=== PATIENT | male | born 1960 | race Caucasian/White ===

== ENCOUNTER 2022-05-24 06:55 | Outpatient (REF) | payer OTHER, SELFPAY ==
[2022-05-24 11:54] LABS: MANUAL DIFF FLAG NO
[2022-05-24 12:02] LABS: Basophils Absolute Auto 0.1 X10*3/uL (0.0-0.2); Basophils Percent Auto 0.8 % (0-2); Eosinophils Absolute Auto 0.4 X10*3/uL (0.0-0.4); Eosinophils Percent Auto 5.8 % (0-4); Hemoglobin 15.3 g/dl (14.0-18.0); Imm Gran Abs Auto 0.02 X10*3/uL (0.00-0.03); Imm Gran Pct Auto 0.3 % (0.0-0.4); Lymphocytes Absolute Auto 1.5 X10*3/uL (1.2-4.9); Lymphocytes Percent Auto 24.1 % (20-40); Mean Corpuscular HGB Conc 34.8 g/dl (31.0-36.0); Mean Corpuscular Hemoglobin 32.2 pg (27.0-33.0); Mean Corpuscular Volume 92.6 fL (80.0-98.0); Mean Platelet Volume 10.3 fL (9.4-12.4); Monocytes Absolute Auto 0.7 X10*3/uL (0.1-1.2); Monocytes Percent Auto 11.6 % (2-11); Neutrophils Absolute Auto 3.6 x10*3/uL (2.0-8.3); Neutrophils Percent Auto 57.4 % (45-73); Platelet Count 263 X10*3/uL (160-400); Red Blood Count 4.75 X10*6/uL (4.60-5.80); White Blood Count 6.2 X10*3/uL (4.8-10.8)
[2022-05-24 12:19] LABS: Alanine Aminotransferase 22 U/L (0-40); Albumin Level 4.1 g/dL (3.5-5.0); Alkaline Phosphatase 59 U/L (39-117); Anion Gap 13 (12-20); Aspartate Amino Transferase 16 U/L (5-37); Bilirubin Total 0.4 mg/dL (0.0-1.0); Blood Urea Nitrogen 21 mg/dL (9-16); Carbon Dioxide 23 mmol/L (22-29); Chloride 105 mmol/L (96-108); Cholesterol 203 mg/dL; Estimated Glomerular Filt Rate > 60; Glucose Fasting 106 mg/dL (60-99); HDL Cholesterol 51 mg/dL; LDL Cholesterol Calculated 141 mg/dl; Potassium 4.4 mmol/L (3.3-5.1); Sodium 137 mmol/L (135-145); Triglycerides 55 mg/dL
[2022-05-24 12:44] LABS: PSA,Total (Free>4and<10) 2.51 ng/mL (0.00-4.00); TSH reflex Free T4 1.93 uIU/mL (0.32-4.0)
== END 2022-05-24 06:56 | disposition home or self-care (01) ==
LOC: HO.HMGCLDS 06:55
PROVIDERS: Visit Provider Internal Medicine
DX: Z00.00 Encounter for general adult medical examination without abnormal findings (principal); Z13.220 Encounter for screening for lipoid disorders; Z13.29 Encounter for screening for other suspected endocrine disorder; Z12.5 Encounter for screening for malignant neoplasm of prostate
CPT/HCPCS: 36415; 80053; 80061; 84153; 84443; 85025

== ENCOUNTER → 2022-07-24 09:04 | Outpatient (BNVA) | payer OTHER, SELFPAY | PROVIDERS: PCP Internal Medicine; Referring Provider Internal Medicine; Visit Provider Surgery | DX: K64.8 Other hemorrhoids (principal) | CPT/HCPCS: 46600 ==

== ENCOUNTER 2022-08-15 07:25 | Day surgery (SDC) | payer OTHER, SELFPAY ==
[2022-08-08 19:51] VITALS: BMI 31.6
--- NOTE | 2022-08-14 10:32 | P.CONAN_ITS ---
Documented by User: Valeria Richey NP 08/14/22 10:33 HPI - Anesthesia Eval Consult details Narrative: 61yo M for Hernia Repair Umbilical Laparoscopic, possible open with mesh PMFSH Active Problems Active Problems: All Active Problems (Updated 07/24/22 @ 09:27 by Asael Claros MD) Hemorrhoids with complication (Acute) Change in bowel habit (Acute) Encounter for screening colonoscopy (Acute) Hemorrhoids (Acute) Morbid (severe) obesity due to excess calories (Acute) Overweight (Acute) Diastasis recti (Acute) Umbilical hernia (Acute) Hernia (Acute) Annual physical exam (Acute) Past Medical History Medical History Hemorrhoids with complication Family History Family History Father Substance use disorder Mother CAD (coronary artery disease), Onset Age: 60 Brother Hodgkin disease Surgical History Surgical History Hx of colonoscopy Hx of knee surgery Hx of wisdom tooth extraction Social History Social History 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:: , 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 Alcohol intake: current Alcohol intake frequency: a few times a month Patient Tobacco Use Status: Former Tobacco user Quit Date: 35 years ago Tobacco use type: Cigarette e-Cigarette/Vaping Use: Never Used Second Hand Smoke Exposure: No Use of substances other than those prescribed or required for medical reasons: No Advance Directives: No Advance Directives Information Provided: Yes Advance Directives on File: No Recently lost weight without trying: No Nutrition Risks: No Nutritional Risk service: Yes Current occupational status: employed Current occupation: [email or web address] Current occupational exposures/hazards: Yes Cognitive needs: No Hearing needs: No Vision needs: No Meds Allergies Allergy/AdvReac Type Severity Reaction Status Date / Time No Known Allergies Allergy Mild NOT Verified 08/15/22 07:35 APPLICABLE Home Medications Medication Instructions Recorded Confirmed Last Taken Type ascorbic acid (vitamin C) 100 mg 100 mg PO DAILY 08/08/22 08/08/22 Unknown History tablet (Vitamin C) calcium carbonate 500 mg-vitamin 1 tab PO DAILY 08/08/22 08/08/22 Unknown History D3 10 mcg (400 unit) tablet (Calcium 500 + D) cetirizine 5 mg tablet 5 mg PO DAILY 08/08/22 08/08/22 Unknown History cholecalciferol (vitamin D3) 125 125 mcg PO DAILY 08/08/22 08/08/22 Unknown History mcg (5,000 unit) tablet (Vitamin D3) multivitamin 1 tab PO DAILY 08/08/22 08/08/22 Unknown History Exam Exam Date and Time: August 14, 2022 1032 Height,Weight and Vital Signs: Height 5 ft 11 in Weight 102.965 kg Pertinent Lab Results Pertinent Lab Results: Laboratory Tests 05/24/22 05/24/22 07:05 07:05 WBC 6.2 Hgb 15.3 Hct 44.0 Plt Count 263 Sodium 137 Potassium 4.4 Chloride 105 Carbon Dioxide 23 BUN 21 H Creatinine 0.80 Documented by User: Odilon Plata MD 08/15/22 09:37 [facility] Past Medical History Medical History Hemorrhoids with complication Family History Family History Father Substance use disorder Mother CAD (coronary artery disease), Onset Age: 60 Brother Hodgkin disease Family history of problems with anesthesia: No Surgical History Surgical History Hx of colonoscopy Hx of knee surgery Hx of wisdom tooth extraction History of Problems with Anesthesia: No Social History Social History 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:: , 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 Alcohol intake: current Alcohol intake frequency: a few times a month Patient Tobacco Use Status: Former Tobacco user Quit Date: 35 years ago Tobacco use type: Cigarette e-Cigarette/Vaping Use: Never Used Second Hand Smoke Exposure: No Use of substances other than those prescribed or required for medical reasons: No Advance Directives: No Advance Directives Information Provided: Yes Advance Directives on File: No Recently lost weight without trying: No Nutrition Risks: No Nutritional Risk service: Yes Current occupational status: employed 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 [employer] Current occupational exposures/hazards: Yes Cognitive needs: No Hearing needs: No Vision needs: No Meds Allergies Allergy/AdvReac Type Severity Reaction Status Date / Time No Known Allergies Allergy Mild NOT Verified 08/15/22 07:35 APPLICABLE Home Medications Medication Instructions Recorded Confirmed Last Taken Type ascorbic acid (vitamin C) 100 mg 100 mg PO DAILY 08/08/22 08/08/22 Unknown Hi story tablet (Vitamin C) calcium carbonate 500 mg-vitamin 1 tab PO DAILY 08/08/22 08/08/22 Unknown History D3 10 mcg (400 unit) tablet (Calcium 500 + D) cetirizine 5 mg tablet 5 mg PO DAILY 08/08/22 08/08/22 Unknown History cholecalciferol (vitamin D3) 125 125 mcg PO DAILY 08/08/22 08/08/22 Unknown History mcg (5,000 unit) tablet (Vitamin D3) multivitamin 1 tab PO DAILY 08/08/22 08/08/22 Unknown History Exam Airway Mallampati Class: II TM Dist: >3cm Neck ROM: Full Loose/Missing/Broken Teeth: No Heart: rrr+[id number] Lungs: cta b/l Assessment and Plan Assessment Anesthesia Assessment: Anesthesia Plan Discussed and Chart Reviewed Final Anesthetic Review Family History of Problems with Anesthesia: No History of Problems with Anesthesia: No NPO: Yes ASA Class: III Final Preanesthetic Review: No Changes in Pt Med Stat, Meds/Allgs Chart Reviewed, Consent Obtained/Reviewed and Anes Risks/Benef Reviewed Patient Risk: Intermediate Procedure Risk: Intermediate Assessment/Block/Sedation in SS: Assess/Block/Sedation-SS Anesthetic Plan Anesthetic Plan: GA and Agree w/ Assess. and Plan Disposition: Standard PACU
[2022-08-15] VITALS (7 sets, daily range): BP systolic 120–144; BP diastolic 60–72; PULSE 56–61; RESP 15–16; TEMP 36.1–36.9; O2SAT 96–98
[2022-08-15] MEDS: Lactated Ringers 500 ML 50 ML IV (08:07)
--- NOTE | 2022-08-15 08:28 | MHC.SHP ---
Pre-Procedural Eval Section A Date of Service: 08/15/22 The patient is an INPATIENT: No The History & Physical has been completed within 30 days and I have reviewed it.: Yes Section B Chief Complaint: Umbilical hernia without obstruction or gangrene Allergies: Allergies Allergy/AdvReac Type Severity Reaction Status Date / Time No Known Allergies Allergy Mild NOT Verified 08/15/22 07:35 APPLICABLE Plan I have reviewed the history and physical and performed a pertinent physical examination on my patient. No changes have occurred unless specified.
--- NOTE | 2022-08-15 08:33 | W.PM.OPN ---
Operative Note Operative Note Date of Service: 08/15/22 Narrative: Preop diagnosis: [Umbilical hernia] Postop diagnosis: [Same] Procedure: [Laparoscopic repair with primary closure and IPOM 4x6 Echo mesh] Surgeon: Earl Marks MD Assist: [Gina Harris PA-C] Anesthesia: [GET; local Ropivicaine, 0.5% with epi] Estimated blood loss: [3cc] Specimen: [none] Intraoperative findings: [Viable properitoneal fat in a 2 cm umbilical hernia was noted and reduced] Indications: [The patient is a 61-year-old gentleman with a history of a symptomatic umbilical hernia with trophic skin changes. His weight is been stable. We discussed options including open repair, continued observation and laparoscopic repair with mesh. Following my recommendations, he wanted to proceed with a laparoscopic repair with mesh/IPOM. I reviewed the option of a 2nd opinion as well as the inherent risks of bleeding, infection, hernia recurrence, intra-abdominal organ injury, DVT/PE and other unexpected complications including urinary retention. Patient seemed understand his options and wanted to proceed with a laparoscopic mesh repair.] Procedure: [The patient was identified in the preoperative holding area by myself and the operative site marked by me confirming an umbilical hernia. The patient was straight cathed for approx 250ccl, received antibiotics, Ancef 2gm IV per protocol and sequential compression stockings were in place. The operative field hair had been clipped in preop holding. The patient was again identified in the operating suite and placed supine on the table. See anesthesia notes for full details regarding anesthesia care and management. The patient was then widely prepped and draped in the usual manner using chlorhexidine. An appropriate time-out was performed. The patient's abdomen was accessed through a stab incision in the left upper quad using preemptive local. Veress needle was placed without incident, an appropriate drop test performed and used to obtain a pneumoperitoneum of 15 mmHg using carbon dioxide. Opening pressure was 4 mmHg. The abdomen was then accessed with a 5 mm/30 degree laparoscopic for a 5 mm optical trocar without incident through the anterior axillary line at the level of the umbilicus. I then inspected for evidence of injury from either the Veress needle or trocar and found none. The patient was positioned in gentle Trendelenburg position and additional 5 mm trocars placed using preemptive local under direct laparoscopic vision in the patient's left lower quadrant and a 12 mm placed in the left upper quadrant. Laparoscopy confirmed umbilical hernia with an approximately 2 cm fascial defect at the umbilical ring. Sub peritoneal fat was dissected from the retrorectus fashion using a grasper and Endo scissors to allow placement of an Echo mesh. Hemostasis was obtained with electrocautery. Once the sac was reduced, the fascial defect was closed using an absorbable 0 V-Lock suture. Dissected properitoneal fat was excised with a LigaSure, placed in an Endo-Catch bag and removed from the abdomen. Next, Echo mesh measuring 4x6 was inserted through the 12 mm trocar and deployed. A stab incision was made through the abdominal wall skin over the hernia, a suture passer used to grasp the blue inflation tube which was then delivered, cut and inflated. The mesh was oriented with overlap and absorbable tacks used to secure the mesh. The abdomen was then deflated to 9 mmHg, the bed return to neutral and trocars removed. The 12 mm fascia was closed 0 Polysorb suture and skin was closed with 4-0 Monocryl subcuticular sutures. The abdomen was then washed and dried, and Mastisol and Steri-Strips applied followed by Band-Aids. Patient tolerated the procedure well was sent to the recovery area in stable condition. All sponge and instrument counts were correct x2. At the patient's request, I spoke to his , Christine in the waiting room and reviewed pain management, activity restrictions, bathing. Her questions seemed to be satisfactorily answered.
[2022-08-15] MEDS: Acetaminophen 325 MG TABLET 650 MG PO (12:11)
== END 2022-08-15 13:12 | disposition home or self-care (01) ==
PROVIDERS: PCP Internal Medicine; Visit Provider Surgery
PROC: 0WQF4ZZ Repair Abdominal Wall, Percutaneous Endoscopic Approach (ICD-10-PCS; CPT 49654; principal; 2022-08-15 08:40)
DX: K42.9 Umbilical hernia without obstruction or gangrene (principal); K64.8 Other hemorrhoids; Z79.899 Other long term (current) drug therapy; Z87.891 Personal history of nicotine dependence
CPT/HCPCS: 49654; C1781; J0690; J1100; J1170; J2250; J2405; J3010

== ENCOUNTER 2022-10-10 09:58 | Day surgery (SDC) | payer OTHER, SELFPAY ==
[2022-10-07 11:31] VITALS: BMI 33.2
--- NOTE | 2022-10-09 10:24 | HO.ANESPROP2 ---
HPI - Anesthesia Eval Consult details Narrative: 61yo M for Colonoscopy s/p umbilical hernia repair 07/2022 [facility] Active Problems Active Problems: All Active Problems (Updated 07/24/22 @ 09:27 by Asael Claros MD) Annual physical exam (Acute) Hernia (Acute) Umbilical hernia (Acute) Diastasis recti (Acute) Overweight (Acute) Morbid (severe) obesity due to excess calories (Acute) Hemorrhoids (Acute) Encounter for screening colonoscopy (Acute) Change in bowel habit (Acute) Hemorrhoids with complication (Acute) Past Medical History Medical History Hemorrhoids with complication Family History Family History Father Substance use disorder Mother CAD (coronary artery disease), Onset Age: 60 Brother Hodgkin disease Family history of problems with anesthesia: No Surgical History Surgical History Hx of colonoscopy Hx of knee surgery Hx of umbilical hernia repair Hx of wisdom tooth extraction History of Problems with Anesthesia: No Social History Social History 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:: , 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 Alcohol intake: current Alcohol intake frequency: a few times a month Patient Tobacco Use Status: Former Tobacco user Quit Date: 33 yrs ago Tobacco use type: Cigarette e-Cigarette/Vaping Use: Never Used Second Hand Smoke Exposure: No Substance Use Frequency: Occasionally Are you DNR?: No Advance Directives: No Advance Directives Information Provided: Yes service: Yes Current occupational status: employed Current occupation: [employer] Current occupational exposures/hazards: Yes Cognitive needs: No Hearing needs: No Vision needs: No Meds Allergies Allergy/AdvReac Type Severity Reaction Status Date / Time No Known Allergies Allergy Mild NOT Verified 10/10/22 10:07 APPLICABLE Home Medications Medication Instructions Recorded Confirmed Last Taken Type ascorbic acid (vitamin C) 100 mg 100 mg PO DAILY 08/08/22 10/10/22 Unknown History tablet (Vitamin C) cetirizine 5 mg tablet 5 mg PO DAILY 08/08/22 10/10/22 Unknown History cholecalciferol (vitamin D3) 125 125 mcg PO DAILY 08/08/22 10/10/22 Unknown History mcg (5,000 unit) tablet (Vitamin D3) multivitamin 1 tab PO DAILY 08/08/22 10/10/22 Unknown History Exam Exam Date and Time: October 09, 2022 1024 Height,Weight and Vital Signs: Height 5 ft 11 in Weight 107.955 kg Pertinent Lab Results Pertinent Lab Results: Laboratory Tests 05/24/22 05/24/22 07:05 07:05 WBC 6.2 Hgb 15.3 Hct 44.0 Plt Count 263 Sodium 137 Potassium 4.4 Chloride 105 Carbon Dioxide 23 BUN 21 H Creatinine 0.80 Assessment and Plan Assessment Anesthesia Assessment: Chart Reviewed Final Anesthetic Review Family History of Problems with Anesthesia: No History of Problems with Anesthesia: No
[2022-10-10 10:30] VITALS: BP 138/73; PULSE 47; RESP 15; TEMP 36.4; O2SAT 97
[2022-10-10] MEDS: Lactated Ringers 1,000 ML 100 ML IVCONT (10:56)
--- NOTE | 2022-10-10 11:25 | MHC.SHP ---
Pre-Procedural Eval Section A Date of Service: 10/10/22 Section B Chief Complaint: screening Present Medications: see Short Stay Collaborative assessment Medical History: Significant History (umbilical hernia, hemorrhoids ) Allergies: Allergies Allergy/AdvReac Type Severity Reaction Status Date / Time No Known Allergies Allergy Mild NOT Verified 10/10/22 10:07 APPLICABLE Review of Systems Review of Systems Comment: 10 point ROS negative except as above Exam Exam Comment: Gen appear: No acute distress, well nourished HEENT: no icterus Chest: No overt resp distress Abd: soft, nontender, nondistended Psych: Stable affect, answering questions appropriately Neuro: A/Ox3 noted to move all extremities spontaneously Ext: no peripheral edema Plan Diagnosis/Plan: Unchanged I have reviewed the history and physical and performed a pertinent physical examination on my patient. No changes have occurred unless specified. Time Spent With Patient Time: Total time managing care of this patient today ____ minutes.
--- NOTE | 2022-10-10 11:27 | P.OP_ITS ---
Operative Note Operative Note Date of Service: 10/10/22 Narrative: Procedure: Colonoscopy Indication: Screening Endoscopist: Corin Marks MD Anesthesia Provider: Dr Antonieta Hebert Anesthesia type: MAC Instrument: Olympus [id number]-H190L Consent: Indication, risks vs benefits, and alternatives were discussed with the patient who gave written informed consent to proceed. EKG, pulse, pulse oximetry and blood pressure were monitored throughout the procedure. Please see anesthesia flowsheet. Procedure: The patient was brought to the procedure room and placed in the left lateral decubitus position. IV medications were administered by the anesthesia provider in attendance. A digital rectal exam was performed which was abnormal due to finding of external hemorrhoid. The colonoscope was then inserted through the anus and advanced through the colon to the cecum at 75 cm. Appendiceal orifi ce and ileocecal valve were identified. Mucosa was carefully examined under high definition white light as the instrument was slowly withdrawn in a retrograde panoramic fashion. Retroflexion was performed in rectum. The procedure was not difficult. There were no immediate obvious complications. The quality of the prep was BBPS: 3+2+3 = adequate Withdrawal time 11 minutes. Limitations: No limitations. Findings: Mucosa: * Normal to cecum. Protruding lesions: * Medium internal hemorrhoids without stigmata of recent bleeding. Excavated lesions: * Moderate diverticulosis of left sided colon. Impression: 1. Normal colon mucosa 2. Diverticulosis 3. External and internal hemorrhoids Recommendations: - Repeat colonoscopy in 10 years for CRC screening.
[2022-10-10 11:59] VITALS: BP 136/69; PULSE 52; RESP 18; TEMP 36.6; O2SAT 97
[2022-10-10 12:14] VITALS: BP 144/76; PULSE 51; RESP 18; TEMP 36.6; O2SAT 98
[2022-10-10 12:33] VITALS: BP 132/76; PULSE 50; RESP 18; O2SAT 98
== END 2022-10-10 12:56 | disposition home or self-care (01) ==
PROVIDERS: PCP Internal Medicine; Visit Provider Internal Medicine
PROC: 0DJD8ZZ Inspection of Lower Intestinal Tract, Via Natural or Artificial Opening Endoscopic (ICD-10-PCS; CPT 45378; principal; 2022-10-10 11:10)
DX: Z12.11 Encounter for screening for malignant neoplasm of colon (principal); K57.30 Diverticulosis of large intestine without perforation or abscess without bleeding; K64.8 Other hemorrhoids; K64.4 Residual hemorrhoidal skin tags; Z79.899 Other long term (current) drug therapy; Z87.891 Personal history of nicotine dependence
CPT/HCPCS: 45378

== ENCOUNTER 2023-05-26 12:52 | Outpatient (AMB) | payer OTHER, SELFPAY ==
--- NOTE | 2023-05-26 13:37 | MHC.PC.OV ---
Vital Signs 05/26/23 13:38 Weight 240 lb 4 oz BP 116/66 Blood Pressure Location Lt brachial Position Sitting Pulse 62 Pulse Source Pulse Oximeter Pulse Oximetry (%) 94 Oxygen Delivery Method Room Air Intake Visit Reasons: PE Allergies No Known Allergies Allergy (Mild, Verified 05/26/23 13:39) NOT APPLICABLE Medication List - Last Reconciled 05/26/23 by Katy Chambers MD ascorbic acid (vitamin C) (Vitamin C) 100 mg PO DAILY cetirizine 5 mg PO DAILY cholecalciferol (vitamin D3) (Vitamin D3) 125 mcg PO DAILY dicyclomine 10 mg PO BID hydrocortisone 2.5% (Proctosol HC) 1 appl NC BEDTIME PRN multivitamin 1 tab PO DAILY Tobacco use date assessed: 05/26/23 Fall risk assessment: No Falls in past year Last assessed Fall Risk: 05/26/23 Dental Screening Dental Screen Date: 05/26/23 Did you have a dental visit in the last 12 months?: Yes Did you have a dental problem in the last 6 months where you did not have access to dental care?: No Was dental information given to patient?: No HPI PE HPI Details Pt presents for PE. Pt c/o intermittent episodes of passing mucous stool and small but frequent BMs on and off for at least 10 months. Patient had negative colonoscopy in September. He denies weight loss nausea vomiting fever chills. The symptoms are associated with crampy abdominal discomfort. Patient has been under lot of stress working for a [employer]. 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 How often do you have a drink containing alcohol?: Never 3. How often do you have six or more drinks on one occasion?: Never Total Score: 0 Score Reviewed/Action Taken: Yes JETHRO-7 AMB Questionnaire JETHRO-7 Date JETHRO - 7 assessed: 05/23/22 Source: Developed by Drs. Arthur Espino, Hannah Khan, Uday Weber and colleagues, with an educational aleshia from [employer]. Review of Systems Const All systems reviewed & are unremarkable except as noted in HPI and below Reports no additional complaints Eyes Reports no additional complaints ENT Reports no additional complaints Card Reports no additional complaints Resp Reports no additional complaints GI Reports no additional complaints Reports no additional complaints Physical exam (Primary Care) Vital Signs: Last Vital Signs Pulse 62 05/26/23 13:38 BP 116/66 05/26/23 13:38 Pulse Ox 94 05/26/23 13:38 Oxygen Delivery Method Room Air 05/26/23 13:38 Tobacco/Smoking Status: Tobacco use Status Tobacco use date assessed 05/26/23 05/26/23 13:40 Patient Tobacco Use Status Former Tobacco user 05/26/23 13:40 Tobacco use type Cigarette 05/26/23 13:40 e-Cigarette/Vaping Use Never Used 05/26/23 13:40 Thrive Assessment: Date of Thrive Assessment Date Thrive assessed 05/23/22 05/26/23 13:40 Const General: no acute distress HENMT Head: Yes normal to inspection General nose exam: Normal external nose present Face and sinus: Yes normal facial exam Throat: Yes posterior oropharynx normal Eyes General: appearance normal, both eyes and all related structures Neck Neck: Yes no lymphadenopathy and Yes supple Resp Effort & Inspection: normal respiratory effort Auscultation: clear to auscultation bilaterally Cardio Rhythm: regular rhythm Heart sounds: S1 normal heart sound present and S2 normal heart sound present GI Inspection: Yes normal to inspection Palpation (GI): Soft to palpation Percussion: Yes normal to percussion Auscultation: normal bowel sounds Assessment and Plan Assessment & Plan (1) Diarrhea: Code(s): R19.7 - Diarrhea, unspecified Plan: For chronic episodes of mucousy stool/frequent bowel movement stool studies will be obtained. Patient will return for fasting blood work. He was advised to start taking Citrucel daily and a dicyclomine 10 mg twice a day. Patient was advised to record diet and his symptoms. He will follow-up in 6 weeks. (2) Annual physical exam: Code(s): Z00.00 - Encounter for general adult medical examination without abnormal findings Plan: Well-balanced diet regular exercise weight loss discussed with the patient Orders: Orders Comprehensive [place]. Panel Fast Today R19.7 - Diarrhea, unspecified Lipid Panel Today R19.7 - Diarrhea, unspecified PSA,Total (Free>4and<10) Today R19.7 - Diarrhea, unspecified TSH reflex Free T4 Today R19.7 - Diarrhea, unspecified Complete Blood Count Auto Diff Today R19.7 - Diarrhea, unspecified GI Panel Today R19.7 - Diarrhea, unspecified Giardia Ag Stool EIA Today R19.7 - Diarrhea, unspecified Leukocytes Stool Qualitative Today R19.7 - Diarrhea, unspecified Vitamin D 25-OH Total Today E55.9 - Vitamin D deficiency, unspecified, R19.7 - Diarrhea, unspecified Medications: New dicyclomine 10 mg PO BID 60 caps 1RF Coding Level of Care Code Est Pt Prev Care 40-64y(99680) Diagnoses Diarrhea R19.7 Annual physical exam Z00.00
[2023-05-26 13:38] VITALS: BP 116/66; PULSE 62; O2SAT 94
== END 2023-05-26 14:13 | disposition home or self-care (01) ==
PROVIDERS: PCP Internal Medicine; Visit Provider Internal Medicine
DX: R19.7 Diarrhea, unspecified (principal); Z00.00 Encounter for general adult medical examination without abnormal findings
CPT/HCPCS: 99396

== ENCOUNTER 2023-05-27 07:25 | Outpatient (REF) | payer OTHER, SELFPAY ==
[2023-05-27 14:01] LABS: Leukocytes Stool Qualitative FEW: < 2/OIF (NEGATIVE)
[2023-05-27 18:02] LABS: Adenovirus F 40/41 Not Detected (Not Detect.); Astrovirus Not Detected (Not Detect.); Campylobacter Not Detected (Not Detect.); Cryptosporidium Not Detected (Not Detect.); Cyclospora cayetanensis Not Detected (Not Detect.); E. coli EAEC Not Detected (Not Detect.); E. coli EPEC Not Detected (Not Detect.); E. coli ETEC Not Detected (Not Detect.); E. coli STEC Not Detected (Not Detect.); Entamoeba histolytica Not Detected (Not Detect.); Giardia lamblia Not Detected (Not Detect.); Plesiomonas shigelloides Not Detected (Not Detect.); Rotavirus A Not Detected (Not Detect.); Salmonella Not Detected (Not Detect.); Sapovirus Not Detected (Not Detect.); Shigella sp./EIEC Not Detected (Not Detect.); Vibrio Not Detected (Not Detect.); Vibrio Cholerae Not Detected (Not Detect.); Yersinia enterocolitica Not Detected (Not Detect.)
[2023-05-27 18:11] LABS: Norovirus GI/GII Detected (Not Detect.)
== END 2023-05-27 07:26 | disposition home or self-care (01) ==
LOC: HO.HMGCLNP 07:25
PROVIDERS: PCP Internal Medicine; Visit Provider Internal Medicine
DX: R19.7 Diarrhea, unspecified (principal)
CPT/HCPCS: 87329; 87507; 89055

== ENCOUNTER 2023-05-28 06:55 | Outpatient (REF) | payer OTHER, SELFPAY ==
[2023-05-28 11:34] LABS: MANUAL DIFF FLAG NO
[2023-05-28 11:49] LABS: Basophils Absolute Auto 0.1 X10*3/uL (0.0-0.2); Basophils Percent Auto 1.2 % (0-2); Eosinophils Absolute Auto 0.6 X10*3/uL (0.0-0.4); Eosinophils Percent Auto 8.9 % (0-4); Hematocrit 44.6 % (42.0-52.0); Hemoglobin 14.8 g/dl (14.0-18.0); Imm Gran Abs Auto 0.03 X10*3/uL (0.00-0.03); Imm Gran Pct Auto 0.4 % (0.0-0.4); Lymphocytes Absolute Auto 1.5 X10*3/uL (1.2-4.9); Lymphocytes Percent Auto 21.4 % (20-40); Mean Corpuscular HGB Conc 33.2 g/dl (31.0-36.0); Mean Corpuscular Hemoglobin 32.1 pg (27.0-33.0); Mean Corpuscular Volume 96.7 fL (80.0-98.0); Mean Platelet Volume 10.7 fL (9.4-12.4); Monocytes Absolute Auto 0.9 X10*3/uL (0.1-1.2); Monocytes Percent Auto 13.1 % (2-11); Neutrophils Absolute Auto 3.8 x10*3/uL (2.0-8.3); Platelet Count 290 X10*3/uL (160-400); Red Blood Count 4.61 X10*6/uL (4.60-5.80); Red Cell Distribution Width 12.8 % (11.0-16.0); White Blood Count 6.9 X10*3/uL (4.8-10.8)
[2023-05-28 12:23] LABS: Alanine Aminotransferase 24 U/L (0-40); Albumin Level 3.8 g/dL (3.5-5.0); Alkaline Phosphatase 67 U/L (39-117); Anion Gap 12 (12-20); Aspartate Amino Transferase 20 U/L (5-37); Bilirubin Total 0.5 mg/dL (0.0-1.0); Blood Urea Nitrogen 17 mg/dL (9-16); Calcium 10.1 mg/dL (8.4-10.2); Carbon Dioxide 27 mmol/L (22-29); Chloride 106 mmol/L (96-108); Cholesterol 181 mg/dL; Estimated Glomerular Filt Rate > 60; Glucose Fasting 95 mg/dL (60-99); HDL Cholesterol 39 mg/dL; LDL Cholesterol Calculated 125 mg/dl; Potassium 4.6 mmol/L (3.3-5.1); Sodium 140 mmol/L (135-145); Total Protein 7.1 g/dL (6.5-8.0); Triglycerides 87 mg/dL; Vitamin D 25-OH Total 93.7 ng/mL (>30)
[2023-05-28 12:27] LABS: PSA,Total (Free>4and<10) 2.61 ng/mL (0.00-4.00)
== END 2023-05-28 06:56 | disposition home or self-care (01) ==
LOC: HO.HMGCLDS 06:55
PROVIDERS: PCP Internal Medicine; Visit Provider Internal Medicine
DX: Z12.5 Encounter for screening for malignant neoplasm of prostate (principal); R19.7 Diarrhea, unspecified; E55.9 Vitamin D deficiency, unspecified
CPT/HCPCS: 36415; 80053; 80061; 82306; 84153; 84443; 85025

== ENCOUNTER 2023-07-09 13:49 | Outpatient (AMB) | payer OTHER, SELFPAY ==
[2023-07-09 13:51] VITALS: BP 134/76; PULSE 74; O2SAT 96; BMI 33.5
--- NOTE | 2023-07-09 13:51 | MHC.PC.OV ---
Vital Signs 07/09/23 13:51 Height 5 ft 11 in Weight 240 lb BMI 33.5 BP 134/76 Blood Pressure Location Lt brachial Position Sitting Pulse 74 Pulse Source Pulse Oximeter Pulse Oximetry (%) 96 Oxygen Delivery Method Room Air Intake Visit Reasons: 6 week follow up Intake Note: Pt is here today for 6 weeks follow up visit. Allergies No Known Allergies Allergy (Mild, Verified 07/09/23 13:54) NOT APPLICABLE Medication List - Last Reconciled 07/09/23 by Katy Chambers MD ascorbic acid (vitamin C) (Vitamin C) 100 mg PO DAILY cetirizine 5 mg PO DAILY cholecalciferol (vitamin D3) (Vitamin D3) 125 mcg PO DAILY dicyclomine 10 mg PO BID hydrocortisone 2.5% (Proctosol HC) 1 appl [place] BEDTIME PRN multivitamin 1 tab PO DAILY Tobacco use date assessed: 05/26/23 HPI 6 week follow up HPI Details Patient presents of diarrhea which resolved after starting Citrucel and taking dicyclomine. Patient's reports less stressed since her mother 2 weeks ago. He has been following low-cholesterol diet for hyperlipidemia. 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 Arthur Espino, Hannah Khan, Uday Weber and colleagues, with an educational aleshia from [employer]. Review of Systems Const All systems reviewed & are unremarkable except as noted in HPI and below Reports no additional complaints Eyes Reports no additional complaints ENT Reports no additional complaints Card Reports no additional complaints Resp Reports no additional complaints Reports no additional complaints Physical exam (Primary Care) Vital Signs: Last Vital Signs Pulse 74 07/09/23 13:51 BP 134/76 07/09/23 13:51 Pulse Ox 96 07/09/23 13:51 Oxygen Delivery Method Room Air 07/09/23 13:51 BMI result Body Mass Index 33.5 Tobacco/Smoking Status: Tobacco use Status Tobacco use date assessed 05/26/23 07/09/23 13:51 Patient Tobacco Use Status Former Tobacco user 07/09/23 13:51 Tobacco use type Cigarette 07/09/23 13:51 e-Cigarette/Vaping Use Never Used 07/09/23 13:51 Thrive Assessment: Date of Thrive Assessment Date Thrive assessed 05/23/22 07/09/23 13:51 Const General: no acute distress HENMT Head: Yes normal to inspection Eyes General: appearance normal, both eyes and all related structures Resp Effort & Inspection: normal respiratory effort Auscultation: clear to auscultation bilaterally Cardio Rhythm: regular rhythm Heart sounds: S1 normal heart sound present and S2 normal heart sound present GI Inspection: Yes normal to inspection Palpation (GI): Soft to palpation Percussion: Yes normal to percussion Auscultation: normal bowel sounds Assessment and Plan Assessment & Plan (1) Diarrhea: Code(s): R19.7 - Diarrhea, unspecified Plan: Resolved continue high-fiber diet (2) Hyperlipidemia: Code(s): E78.5 - Hyperlipidemia, unspecified Plan: Continue low-cholesterol diet regular exercise and restart fish oil supplement. Return for physical in 1 year with fasting labs before Orders: Orders Comprehensive [place]. Panel Fast 365 Days E55.9 - Vitamin D deficiency, unspecified, E78.5 - Hyperlipidemia, unspecified, Z00.00 - Encounter for general adult medical examination without abnormal findings Lipid Panel 365 Days E55.9 - Vitamin D deficiency, unspecified, E78.5 - Hyperlipidemia, unspecified, Z00.00 - Encounter for general adult medical examination without abnormal findings PSA,Total (Free>4and<10) 365 Days E55.9 - Vitamin D deficiency, unspecified, E78.5 - Hyperlipidemia, unspecified, Z00.00 - Encounter for general adult medical examination without abnormal findings Complete Blood Count Auto Diff 365 Days E55.9 - Vitamin D deficiency, unspecified, E78.5 - Hyperlipidemia, unspecified, Z00.00 - Encounter for general adult medical examination without abnormal findings Vitamin D 25-OH Total 365 Days E55.9 - Vitamin D deficiency, unspecified, E78.5 - Hyperlipidemia, unspecified, Z00.00 - Encounter for general adult medical examination without abnormal findings Coding Level of Care Code Est Pt Level 3 (63068) Diagnoses Diarrhea R19.7 Hyperlipidemia E78.5
== END 2023-07-09 15:01 | disposition home or self-care (01) ==
PROVIDERS: PCP Internal Medicine; Visit Provider Internal Medicine
DX: R19.7 Diarrhea, unspecified (principal); E78.5 Hyperlipidemia, unspecified
CPT/HCPCS: 99213

== ENCOUNTER 2023-10-18 06:37 | Inpatient (IN) | payer OTHER, SELFPAY ==
--- NOTE | ~2023-10-18 | CT_ITS ---
EXAMINATION: CT ABDOMEN AND PELVIS WITH CONTRAST CLINICAL INFORMATION: Diarrhea. Bacteremia. Elevated white blood cell count. COMPARISON: None available. TECHNIQUE: Multidetector volumetric images were obtained from the superior aspect of the liver through the pubic symphysis following administration 85 mL of Omnipaque 350 intravenous contrast. Sagittal and coronal reformatted images were obtained on the technologist's workstation. Oral contrast: No This CT examination was performed using dose optimization techniques as appropriate, variously including the following: *Automated exposure control *Adjustment of mA and/or kV according to patient size (this includes techniques or standardized protocols for targeted exams where dose is matched to indication/reason for exam; i.e. extremities or head) *Use of iterative reconstruction technique DLP: 680 mGy-cm FINDINGS: LUNG BASES: The visualized lung bases are unremarkable. LIVER, GALLBLADDER, AND BILIARY TREE: The liver is normal in size, shape, and attenuation. No focal hepatic lesion or biliary ductal dilatation is present. The gallbladder is unremarkable with no evidence of radiopaque gallstones, gallbladder wall thickening, or obvious pericholecystic inflammatory changes. PANCREAS: Unremarkable. SPLEEN: Unremarkable. ADRENAL GLANDS: Unremarkable. KIDNEYS AND URETERS: The kidneys are normal in size, shape, and attenuation. No hydronephrosis, hydroureter, or calculi seen. Subcentimeter hypodensity within the posterior right lower pole measuring up to 0.8 cm, too small to characterize. Findings statistically likely represent a cyst and no dedicated follow-up imaging is recommended. No perinephric stranding. BLADDER: Partially distended and unremarkable. GASTROINTESTINAL TRACT: Circumferential wall thickening of the cecum extending superiorly through the ascending colon and more minimally along the transverse colon. Mild adjacent stranding. Findings are consistent with acute colitis. No associated diverticula. An infectious or inflammatory etiology could be considered. An ischemic etiology is thought less likely. No small or large bowel obstruction. Unremarkable appendix. PERITONEAL CAVITY: No intra-abdominal free air or free fluid. No large intra-abdominal mass or organized fluid collection/abscess formation. No evidence of bowel wall perforation. ABDOMINAL WALL: No significant hernia is appreciated. LYMPH NODES: Reactive right and central mesenteric lymph nodes extending proximally with the largest measuring up to 1.1 x 1.5 cm (axial image 54/98). VASCULAR: Unremarkable. PELVIC VISCERA: The prostate and seminal vesicles are unremarkable. OSSEOUS STRUCTURES: Unremarkable. CT/CT abdomen pelvis w IV con IMPRESSION: 1. Circumferential wall thickening of the cecum, ascending colon, and more minimally along the transverse colon. Mild adjacent stranding. Findings are consistent with acute colitis. No associated diverticula. Infectious or inflammatory etiology could be considered. Ischemic etiology is thought less likely. No evidence of perforation or abscess formation. 2. Likely reactive right and central mesenteric lymph nodes. Fleischner guidelines were followed.
[2023-10-18 06:40] VITALS: BP 137/81; PULSE 72; RESP 18; TEMP 36.3; O2SAT 95; BMI 32.1
[2023-10-18 07:28] LABS: Hematocrit 39.2 % (42.0-52.0); Hemoglobin 13.9 g/dl (14.0-18.0); Mean Corpuscular HGB Conc 35.5 g/dl (31.0-36.0); Mean Corpuscular Hemoglobin 31.8 pg (27.0-33.0); Mean Corpuscular Volume 89.7 fL (80.0-98.0); Mean Platelet Volume 9.3 fL (9.4-12.4); Platelet Count 299 X10*3/uL (160-400); Red Blood Count 4.37 X10*6/uL (4.60-5.80); Red Cell Distribution Width 12.6 % (11.0-16.0); White Blood Count 12.1 X10*3/uL (4.8-10.8)
[2023-10-18 07:46] LABS: SLIDE REVIEW MANUAL DIFF
[2023-10-18 07:50] LABS: Neutrophils Percent Manual 54 % (45-73)
[2023-10-18 07:52] LABS: Band Neutrophils Percent 18 % (3-5); Eosinophils Percent Manual 8 % (0-4); Lymphocytes Absolute Manual 1.2 X10*3/uL (1.2-4.9); Lymphocytes Percent Manual 10 % (20-40); Monocytes Absolute Manual 1.2 X10*3/uL (0.1-1.2); Monocytes Percent Manual 10 % (2-11); Neutrophils Absolute Manual 8.7 X10*3/uL (2.0-8.3)
[2023-10-18 07:53] LABS: Dohle Bodies PRESENT; Platelet Estimate NORMAL (NORMAL); Platelet Morphology Comment NORMAL; RBC Morphology NORMAL
[2023-10-18 08:17] LABS: Alanine Aminotransferase 20 U/L (0-40); Albumin Level 3.4 g/dL (3.5-5.0); Alkaline Phosphatase 58 U/L (39-117); Anion Gap 12 (12-20); Aspartate Amino Transferase 17 U/L (5-37); Bilirubin Direct 0.2 mg/dL (0.0-0.5); Bilirubin Total 0.4 mg/dL (0.0-1.0); Blood Urea Nitrogen 10 mg/dL (9-16); Calcium 9.3 mg/dL (8.4-10.2); Carbon Dioxide 22 mmol/L (22-29); Chloride 106 mmol/L (96-108); Creatinine Clr Calc Pharmacy 105.4; Estimated Glomerular Filt Rate > 60; Glucose Random 123 mg/dL (60-115); Lipase 120 U/L (8-78); Potassium 3.4 mmol/L (3.3-5.1); Sodium 137 mmol/L (135-145); Total Protein 6.9 g/dL (6.5-8.0)
[2023-10-18 08:34] VITALS: BP 149/77; PULSE 66; RESP 18; TEMP 36.6; O2SAT 95
--- NOTE | 2023-10-18 08:51 | ED.ABDPAIN ---
HPI - Abdominal Pain General Chief Complaint: Abdominal Pain Stated Complaint: Abd pain Time Seen by Provider: 10/18/23 08:41 Source: patient, family and old records reviewed Mode of arrival: ambulatory Limitations: no limitations History of Present Illness HPI narrative: 62 yo male with PMH of HLD, prior norovirus, colonoscopy 2021 - hemorrhoids otherwise normal, here with c/o 5 weeks of diarrhea loose foul smelling sometimes mixed with blood due to hemorrhoids but not all the time. 15lb weight loss. No travel, no abx, no sick contacts, no workup with PCP or stool studies. No med or diet changes. He has fecal incontinence at this time. He finally came due to having to leave vacation early and he cannot take it anymore. MD elicited complaint: abdominal pain Onset (ago): week(s) (5) Pain Consistency: intermittent Location: diffuse Severity: moderate Quality: cramping Radiation: none Migration to: no migration Exacerbating factors: eating Relieving factors: bowel movement Associated symptoms: nausea, chills and hematochezia Treatments prior to arrival: other (topical hemorrhoid cream) Related Data Home Medications Medication Instructions Recorded Confirmed ascorbic acid (vitamin C) 100 mg 100 mg PO DAILY 08/08/22 07/09/23 tablet (Vitamin C) cetirizine 5 mg tablet 5 mg PO DAILY 08/08/22 07/09/23 cholecalciferol (vitamin D3) 125 125 mcg PO DAILY 08/08/22 07/09/23 mcg (5,000 unit) tablet (Vitamin D3) multivitamin 1 tab PO DAILY 08/08/22 07/09/23 Previous Rx's Medication Instructions Recorded hydrocortisone 2.5 % topical cream 1 appl AR BEDTIME PRN hemorrhoids 06/27/22 with perineal applicator #30 grams (Proctosol HC) dicyclomine 10 mg capsule 10 mg PO BID #60 caps 05/26/23 Allergies Allergy/AdvReac Type Severity Reaction Status Date / Time No Known Allergies Allergy Mild NOT Verified 10/18/23 06:47 APPLICABLE Review of Systems Review of Systems Constitutional : pos Weight loss, No Fever, pos Chills ENT/Mouth : No sore throat, No Rhinorrhea Eyes: No Swelling, No Redness Cardiovascular : No Chest Pain, No SOB, NoEdema Respiratory : No Cough, No Sputum, No Wheezing Gastrointestinal : Positive Nausea, no Vomiting, positive Diarrhea, positive abdominal Pain, No Hematochezia, No Melena Genitourinary : No Dysuria, No Urinary Frequency, No Hematuria, No Urgency Musculoskeletal : No joint pain, No Myalgias, No Joint Swelling Skin : No Skin Lesions, No rash Neuro : No Weakness, No Numbness, No Dizziness, No Headache Psych : No Anxiety/Panic, No Depression Heme/Lymph: No Bruising, No Lymphadenopathy Endocrine : No Polyuria, No Polydipsia All other systems reviewed and are negative. [facility] Past Medical History Attestation statement: The following information was validated with the patient. 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: House Alcohol intake: current Alcohol intake frequency: a few times a month Patient Tobacco Use Status: Former Tobacco user Quit Date: 33 yrs ago Tobacco use type: Cigarette Smoked in Last 30 Days: No e-Cigarette/Vaping Use: Never Used Second Hand Smoke Exposure: No Use of substances other than those prescribed or required for medical reasons: No Advance Directives: No Advance Directives Information Provided: Yes service: Yes Current occupational status: employed Current occupation: [employer] Current occupational exposures/hazards: Yes Cognitive needs: No Hearing needs: No Vision needs: No Physical Exam ED Vital Signs: Vital Signs - 24 hr 10/18/23 06:40 10/18/23 08:34 10/18/23 11:19 Temperature 97.3 F 97.8 F Pulse Rate 72 66 66 Respiratory Rate 18 18 18 Blood Pressure 137/81 149/77 H 149/78 H Pulse Oximetry 95 95 96 Oxygen Delivery Method Room Air Room Air Room Air BMI result Body Mass Index 32.1 Appearance: Alert. Oriented X3. No acute distress. Eyes: Pupils equal, round and reactive to light. ENT: Pharynx mild dry MM Neck: Normal inspection. Neck supple. CVS: Normal heart rate and rhythm. Pulses normal. Respiratory: No respiratory distress. Breath sounds normal. Abdomen: Soft and no ttp at this time Skin: Skin warm and dry. Normal skin color. Normal skin turgor. Extremities: No lower extremity edema. No calf ttp Neuro: Oriented X 3. No motor deficit. No sensory deficit. Course Course Course Narrative: at this time c diff negative will add on ceftriaxone and flagyl and refer to GI panel 1226pm Medical Decision Making Medical Decision Making MDM Narrative: 62 yo male with PMH of HLD, prior norovirus, colonoscopy 2021 - hemorrhoids otherwise normal, here with c/o 5 weeks of diarrhea loose foul smelling no travel, water exposures, recent procedures, antibiotic use, no prior colitis, cdiff at this time will obtain basic labs and given CBC and bandemia start on fluids, CT scan, IVF and empiric oral vancomycin. Differential Diagnosis Differential Diagnoses: The differential diagnosis associated with the presentation includes colitis, cdiff, Admission/Observation Consideration of admission/observation: Escalation of care including admission/observation considered admit given symptoms and bandemia Consult Healthcare Provider Management of the patient was discussed with: Hospitalist (will admit) Lab Data [facility] Lab Attestation statement: I reviewed the patient's lab results. 10/18/23 07:08 10/18/23 07:08 Labs: Lab Results 10/18/23 10/18/23 10/18/23 Range/Units 07:08 09:28 11:22 WBC 12.1 H (4.8-10.8) X10*3/uL RBC 4.37 L (4.60-5.80) X10*6/uL Hgb 13.9 L (14.0-18.0) g/dl Hct 39.2 L (42.0-52.0) % MCV 89.7 (80.0-98.0) fL MCH 31.8 (27.0-33.0) pg MCHC 35.5 (31.0-36.0) g/dl RDW 12.6 (11.0-16.0) % Plt Count 299 (160-400) X10*3/uL MPV 9.3 L (9.4-12.4) fL Immature Gran % (Auto) Cancelled Neut % (Auto) Cancelled Lymph % (Auto) Cancelled Branch % (Auto) Cancelled Eos % (Auto) Cancelled Baso % (Auto) Cancelled Lymph # (Auto) Cancelled Branch # (Auto) Cancelled Eos # (Auto) Cancelled Baso # (Auto) Cancelled Abs Immat Gran (auto) Cancelled Absolute Neuts (auto) Cancelled Absolute Nucleated RBC 0.000 (0.0-0.012) X10*3/uL Nucleated RBC % (auto) 0.0 (0.0-0.2) /100WBC Neutrophils % (Manual) 54 (45-73) % Band Neutrophils % 18 H (3-5) % Lymphocytes % (Manual) 10 L (20-40) % Monocytes % (Manual) 10 (2-11) % Eosinophils % (Manual) 8 H (0-4) % Abs Neuts (Manual) 8.7 H (2.0-8.3) X10*3/uL Lymphocytes # (Manual) 1.2 (1.2-4.9) X10*3/uL Monocytes # (Manual) 1.2 (0.1-1.2) X10*3/uL Eosinophils # (Manual) 1.0 H (0.0-0.4) X10*3/uL Dohle Bodies PRESENT Platelet Estimate NORMAL (NORMAL) Plt Morphology Comment NORMAL RBC Morphology NORMAL Smear Tech's Comments MANUAL DIFF Sodium 137 (135-145) mmol/L Potassium 3.4 D (3.3-5.1) mmol/L Chloride 106 (96-108) mmol/L Carbon Dioxide 22 (22-29) mmol/L Anion Gap 12 (12-20) BUN 10 (9-16) mg/dL Creatinine 0.87 (0.5-1.4) mg/dL Estim Creat Clear Calc 105.4 Estimated GFR > 60 Random Glucose 123 H (60-115) mg/dL Lactic Acid 0.9 (0.5-2.0) mmol/L Calcium 9.3 D (8.4-10.2) mg/dL Magnesium 1.9 (1.6-2.6) mg/dL Total Bilirubin 0.4 (0.0-1.0) mg/dL Direct Bilirubin 0.2 (0.0-0.5) mg/dL AST 17 (5-37) U/L ALT 20 (0-40) U/L Alkaline Phosphatase 58 (39-117) U/L Total Protein 6.9 (6.5-8.0) g/dL Albumin 3.4 L (3.5-5.0) g/dL Lipase 120 H (8-78) U/L C. difficile Tox B Gene NEGATIVE (Negative) Independent Interpretation I performed an independent interpretation of an: CT Scan (pancolitis) Radiology Impression Discussion of test interpretation with radiology: I have reviewed the radiologist's reading. Independent Historian Clinical information obtained from an independent historian. History obtained from or confirmed by: Spouse External Record Review External record reviewed: Inpatient record, Outpatient record and Prior outpatient labs Medications Administered Generic Name Dose Route Start Last Admin Trade Name Freq PRN Reason Stop Dose Admin Sodium Chloride 1,000 mls @ 125 mls/hr 10/18/23 10:30 10/18/23 11:17 Ns IVCONT 125 mls/hr .Q8H MATT Administration Discontinued Medications Generic Name Dose Route Start Last Admin Trade Name Freq PRN Reason Stop Dose Admin Sodium Chloride 1,000 mls @ 999 mls/hr 10/18/23 08:45 10/18/23 10:35 Ns IV 10/18/23 09:45 Infused .Q1H1M MATT Infusion Iohexol 85 ml 10/18/23 10:02 10/18/23 10:02 Iohexol 350 Mg/Ml 100 Ml Infus..Btl IV 10/18/23 10:03 85 ml ONCE ONE Administration Vancomycin HCl 125 mg 10/18/23 08:55 10/18/23 09:46 Vancomycin Hcl 125 Mg Capsule PO 10/18/23 08:56 125 mg ONCE ONE Administration Discharge Plan Discharge Clinical Impression: Bandemia, Pancolitis Diarrhea Qualifiers: Diarrhea type: presumed infectious Qualified Code(s): R19.7 - Diarrhea, unspecified Patient Disposition: Admitted As Inpatient
[2023-10-18 09:17] LABS: Magnesium 1.9 mg/dL (1.6-2.6)
[2023-10-18] MEDS: 0.9 % Sodium Chloride 1,000 ML 999 ML IV (09:32)
[2023-10-18 09:46] LABS: Lactic Acid 0.9 mmol/L (0.5-2.0)
[2023-10-18] MEDS: vancomycin HCL 125 MG CAPSULE PO (09:46)
[2023-10-18] MEDS: iohexoL 350 MG/ML 100 ML INFUS..BTL 85 ML IV (10:02)
[2023-10-18] MEDS: 0.9 % Sodium Chloride 1,000 ML 125 ML IVCONT ×2 (11:17→17:03)
[2023-10-18 11:19] VITALS: BP 149/78; PULSE 66; RESP 18; O2SAT 96
--- NOTE | 2023-10-18 11:34 | PC.NURSE ---
stool samples sent to lab. pt describes strong hemorrhoid pain when using bathroom. Back in room, IV fluids infusing on pump. Contact precautions in place
[2023-10-18 12:24] LABS: CDiff Gene PCR NEGATIVE (Negative)
[2023-10-18] MEDS: cefTRIAXone sodium 1 GM in 0.9 % Sodium Chloride 50 ML IV (12:48)
--- NOTE | 2023-10-18 12:50 | PHA.MEDREC ---
Pharmacy Consult ? Medication Reconciliation Pharmacy has completed the medication reconciliation.
[2023-10-18 13:03] LABS: Adenovirus F 40/41 Not Detected (Not Detect.); Astrovirus Not Detected (Not Detect.); Campylobacter Not Detected (Not Detect.); Cryptosporidium Not Detected (Not Detect.); Cyclospora cayetanensis Not Detected (Not Detect.); E. coli EAEC Not Detected (Not Detect.); E. coli EPEC Not Detected (Not Detect.); E. coli ETEC Not Detected (Not Detect.); E. coli STEC Not Detected (Not Detect.); Entamoeba histolytica Not Detected (Not Detect.); Giardia lamblia Not Detected (Not Detect.); Norovirus GI/GII Not Detected (Not Detect.); Plesiomonas shigelloides Not Detected (Not Detect.); Rotavirus A Not Detected (Not Detect.); Salmonella Not Detected (Not Detect.); Sapovirus Not Detected (Not Detect.); Shigella sp./EIEC Not Detected (Not Detect.); Vibrio Not Detected (Not Detect.); Vibrio Cholerae Not Detected (Not Detect.); Yersinia enterocolitica Not Detected (Not Detect.)
[2023-10-18] MEDS: metroNIDAZOLE/NS 500 MG/100 ML PIGGYBACK 100 MG IV ×2 (13:21→20:55)
--- NOTE | 2023-10-18 13:24 | PM.IMHP ---
History of Present Illness Date of Service: 10/18/23 Attending physician on admission: Albert Lomas Chief Complaint: diarrhae ,abd pain 62 y/o M with with history of hemorrhoids presented to the hospital for diarrhea, abdominal pain: He says that he is having these symptoms from 5-6 days. Initially started with liquidy stools and then the need to some greenish diarrhea. He says that he had intermittent abdominal pain, diffuse, nonradiating, no association with food. Denies any recent travel or any sick contacts or antibiotic use. Denies any fever or chills. Denies any blood in the stool either. Denies any new complaint of chest pain or shortness of breath or abdominal pain or fever or chills or nausea or vomiting or cough or weakness or numbness. Labs ,imaging reviewed: Leukocytosis 12.[address] abdomen: Circumferential wall thickening of the cecum, ascending colon, and more minimally along the transverse colon. Mild adjacent stranding. Findings are consistent with acute colitis. 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 If so, by whom?: No Do you feel safe in your current relationship?: Yes Is there a partner from a previous relationship who is making you feel unsafe now?: No Are you made to feel afraid or neglected: No Advance Directives: No Advance Directives Information Provided: Yes Do you have thoughts of harming others: None Do you have a plan to hurt others: No Plan Recently lost weight without trying: Yes How much weight loss: 14-23 pounds Eating poorly because of decreased appetite: No Nutrition screen score: 4 Nutrition Risks: No Nutritional Risk Poor oral hygiene: No service: Yes Current occupational status: employed Current occupation: [employer] Current occupational exposures/hazards: Yes Cognitive needs: No Hearing needs: No Vision needs: No Meds Allergies Allergy/AdvReac Type Severity Reaction Status Date / Time No Known Allergies Allergy Mild NOT Verified 10/18/23 06:47 APPLICABLE Active Medications: Current Medications Ascorbic Acid (Ascorbic Acid 250 Mg Tablet) 250 mg PO DAILY [facility] Calcium Carbonate (Calcium Carbonate 500 Mg Tablet) 500 mg PO DAILY [facility] Dicyclomine HCl (Dicyclomine Hcl 10 Mg Capsule) 10 mg PO BID [facility] Hydrocortisone (Hydrocortisone 2.5 % Rectal Cr 30 Gm Tube) 1 appl AL BEDTIME PRN PRN Reason: hemorrhoids Sodium Chloride (Ns) 1,000 mls @ 125 mls/hr IVCONT .Q8H [facility] Last Admin: 10/18/23 11:17 Dose: 125 mls/hr Ceftriaxone Sodium 1 gm/ (Sodium Chloride) 50 mls @ 100 mls/hr IV Q24H [facility] Metronidazole (Flagyl) 500 mg in 100 mls @ 100 mls/hr IV Q8H [facility] Last Admin: 10/18/23 13:21 Dose: 100 mls/hr Loratadine (Loratadine 10 Mg Tablet) 10 mg PO DAILY [facility] Multivitamins/Vitamin C (Multivitamin Tablet) 1 tab PO DAILY [facility] Sodium Chloride (0.9 % Sodium Chloride Flush 3 Ml Syringe) 3 ml IVFLUSH QSHIFT [facility] Vitamin D (Cholecalciferol (Vitamin D3) 25 Mcg Tablet) 125 mcg PO DAILY [facility] Home Medications Medication Instructions Recorded Confirmed Last Taken Type ascorbic acid (vitamin C) 100 mg 100 mg PO DAILY 08/08/22 10/18/23 10/17/23 History tablet (Vitamin C) cholecalciferol (vitamin D3) 125 125 mcg PO DAILY 1010/18/23 10/17/23 History mcg (5,000 unit) tablet (Vitamin D3) multivitamin 1 tab PO DAILY 08/08/22 10/18/23 10/17/23 History calcium carbonate 600 mg calcium 600 mg PO DAILY 10/18/23 10/18/23 10/17/23 History (1,500 mg) tablet (Calcium) cetirizine 10 mg tablet 10 mg PO DAILY 10/18/23 10/18/23 10/17/23 History Physical Exam Vital Signs and Narrative: Vital Signs: Last Vital Signs Temp 97.8 F 10/18/23 08:34 Pulse 66 10/18/23 11:19 Resp 18 10/18/23 11:19 BP 149/78 H 10/18/23 11:19 Pulse Ox 96 10/18/23 11:19 O2 Del Method Room Air 10/18/23 11:19 BMI result Body Mass Index 32.1 Appearance: Alert.? Oriented X3.? not in distress.? Eyes: Pupils equal, round and reactive to light.? Sclera nonicteric.? ENT: Pharynx normal.? Moist mucous membranes. cvs: rrr, [id number] . res: clear to auscultation ,no rhonchii or wheezing abd: no rebound or guarding ,moderate diffuse abd pain more on left side , bs present. ext pulses present , no cyanosis . neuro: axo3 , nonfocal. Results Labs 10/18/23 07:08 10/18/23 07:08 Labs: Laboratory Results - last 24 hr 10/18/23 10/18/23 10/18/23 07:08 09:28 11:22 MCV 89.7 MCH 31.8 MCHC 35.5 RDW 12.6 Plt Count 299 MPV 9.3 L Immature Gran % (Auto) Cancelled Neut % (Auto) Cancelled Lymph % (Auto) Cancelled [place] % (Auto) Cancelled Eos % (Auto) Cancelled Baso % (Auto) Cancelled Lymph # (Auto) Cancelled [place] # (Auto) Cancelled Eos # (Auto) Cancelled Baso # (Auto) Cancelled Abs Immat Gran (auto) Cancelled Absolute Neuts (auto) Cancelled Absolute Nucleated RBC 0.000 Nucleated RBC % (auto) 0.0 Neutrophils % (Manual) 54 Band Neutrophils % 18 H Lymphocytes % (Manual) 10 L Monocytes % (Manual) 10 Eosinophils % (Manual) 8 H Abs Neuts (Manual) 8.7 H Lymphocytes # (Manual) 1.2 Monocytes # (Manual) 1.2 Eosinophils # (Manual) 1.0 H Dohle Bodies PRESENT Platelet Estimate NORMAL Plt Morphology Comment NORMAL RBC Morphology NORMAL Smear Tech's Comments MANUAL DIFF Anion Gap 12 Estim Creat Clear Calc 105.4 Estimated GFR > 60 Random Glucose 123 H Lactic Acid 0.9 Calcium 9.3 D Magnesium 1.9 Total Bilirubin 0.4 Direct Bilirubin 0.2 AST 17 ALT 20 Alkaline Phosphatase 58 Total Protein 6.9 Albumin 3.4 L Lipase 120 H Stl C. cayetanensis PCR Not Detected Stool Rotavirus A PCR Not Detected Stl Adenov F 40/41 PCR Not Detected Stool Astrovirus (PCR) Not Detected Stool Campylobacter PCR Not Detected Stool Cryptosporidium PCR Not Detected Stl Sh Tox Pr E STEC PCR Not Detected Stool E coli O157 PCR Not applicable Stl Enterotoxigenic E PCR Not Detected Stool EPEC (PCR) Not Detected Stool EAEC (PCR) Not Detected Stl E. histolytica PCR Not Detected Stool Giardia Lamblia PCR Not Detected Stl P. shigelloides PCR Not Detected Stool Salmonella PCR Not Detected Stool Sapovirus (PCR) Not Detected Stl Shigella/EIEC PCR Not Detected St Y.enterocolitica PCR Not Detected Stool Vibrio (PCR) Not Detected Stl Vibrio cholerae PCR Not Detected Stl Norovirus GI/GII PCR Not Detected C. difficile Tox B Gene NEGATIVE Imaging Radiologist's Impressions: Impressions Abdomen/Pelvis CT 10/18/23 10:02 IMPRESSION: 1. Circumferential wall thickening of the cecum, ascending colon, and more minimally along the transverse colon. Mild adjacent stranding. Findings are consistent with acute colitis. No associated diverticula. Infectious or inflammatory etiology could be considered. Ischemic etiology is thought less likely. No evidence of perforation or abscess formation. 2. Likely reactive right and central mesenteric lymph nodes. Fleischner guidelines were followed. Assessment and Plan (1) Pancolitis: Status: Acute (2) Diarrhea: Qualifiers: Diarrhea type: presumed infectious Qualified Code(s): R19.7 - Diarrhea, unspecified Status: Acute Plan 62 y/o M with with history of hemorrhoids presented to the hospital for diarrhea, abdominal pain with colitis. 1. colitis: Unable to take adequate p.o. food is secondary to colitis/diarrhea/pain. C diff and gastrointestinal panel sent Has leukocytosis of 12.1, lactic acid normal, blood cultures sent. Continue IV antibiotics-ceftriaxone/Flagyl started on 10/18/2023, IV morphine. 2. History of hemorrhoids: Continue home medication. 3. Overweight: Encouraged to cut down calories and lose weight. Patient will benefit from 24-48 Hrs for colitis, abdominal pain,Unable to take adequate p.o. food is secondary to colitis/diarrhea/pain -need IV antibiotics-ceftriaxone/Flagyl started on 10/18/2023, IV morphine. Quality Stroke Does the patient have a stroke diagnosis?: No VTE Prior VTE?: No VTE Risk Level:: Medical - moderate - high VTE Device Contraindication: N/A - Device Ordered VTE Drug Contraindication: N/A - Med Ordered
[2023-10-18 14:38] VITALS: BP 139/76; PULSE 68; RESP 18; TEMP 36; O2SAT 93
[2023-10-18 19:07] VITALS: BP 131/69; PULSE 73; RESP 14; TEMP 36.1; O2SAT 95
[2023-10-18] MEDS: Dicyclomine HCl 10 MG CAPSULE PO (20:55)
[2023-10-19] MEDS: 0.9 % Sodium Chloride 1,000 ML 125 ML IVCONT (01:25)
[2023-10-19 03:17] VITALS: BP 136/69; PULSE 65; RESP 16; TEMP 36.4; O2SAT 94
[2023-10-19] MEDS: metroNIDAZOLE/NS 500 MG/100 ML PIGGYBACK 100 MG IV (05:58)
[2023-10-19 07:20] VITALS: BP 118/70; PULSE 63; RESP 16; TEMP 36.9; O2SAT 94
[2023-10-19] MEDS: Cholecalciferol (Vitamin D3) 25 MCG TABLET 125 MCG PO (07:55)
[2023-10-19] MEDS: Multivitamin TABLET 1 TAB PO (07:55)
[2023-10-19] MEDS: Ascorbic Acid 250 MG TABLET PO (07:55)
[2023-10-19] MEDS: Loratadine 10 MG TABLET PO (07:55)
[2023-10-19] MEDS: Dicyclomine HCl 10 MG CAPSULE PO (07:55)
[2023-10-19] MEDS: cefuroxime axetiL 500 MG TABLET PO (09:30)
[2023-10-19] MEDS: metroNIDAZOLE 500 MG TABLET PO (09:30)
--- NOTE | 2023-10-19 11:07 | P.DS_ITS ---
DS: Providers Provider Date of Service: 10/19/23 Date of admission: 10/18/23 13:01 Date of discharge: 10/19/23 Primary care physician: Katy Chambers MD Attending physician on discharge: Albert Lomas Discharging clinician: Albert Lomas DS: Diagnosis Discharge Diagnosis (1) Pancolitis: Status: Acute (2) Diarrhea: Status: Acute DS: Summary Hospital Course Hospital Course: 62 y/o M with with history of hemorrhoids presented to the hospital for diarrhea, abdominal pain: He says that he is having these symptoms from 5-6 days. Initially started with liquidy stools and then the need to some greenish diarrhea. He says that he had intermittent abdominal pain, diffuse, nonradiating, no association with food. Denies any recent travel or any sick contacts or antibiotic use. Denies any fever or chills. Denies any blood in the stool either. Denies any new complaint of chest pain or shortness of breath or abdominal pain or fever or chills or nausea or vomiting or cough or weakness or numbness. Labs ,imaging reviewed: Leukocytosis 12.[address] abdomen: Circumferential wall thickening of the cecum, ascending colon, and more minimally along the transverse colon. Mild adjacent stranding. Findings are consistent with acute colitis. Hospital course: 62 y/o M with with history of hemorrhoids presented to the hospital for diarrhea, abdominal pain with colitis: Patient came to the hospital with abdominal pain, diarrhea-CT abdomen shows possible colitis: Started on IV antibiotic, blood cultures sent-patient seems to be improved significantly, tolerating diet, no fever no abdominal pain passing bowels. he is very eager to go home: Going home with p.o. antibiotic( complete p.o. Ceftin 500 mg p.o. b.i.d. for 6 days, Flagyl 500 mg p.o. b.i.d. for 6days.) plan: complete p.o. Ceftin 500 mg p.o. b.i.d. for 6 days, Flagyl 500 mg p.o. b.i.d. for 6days.) Patient was strongly advised to follow-up with his PCP and further management of hemorrhoids outpatient with PCP. Above management discussed the patient detail and he understand and in agreement with the above plan, time spent 50 minute. Time Attestation Discharge coordination time: Greater than 30 minutes Quality: Safe Use of Opioids Does Pt have an Active Cancer Diagnosis on the Problem List?: No Quality: Stroke Does the patient have a stroke diagnosis?: No Physical Exam Vital Signs: Vital Signs: Last Vital Signs Temp 98.5 F 10/19/23 07:20 Pulse 63 10/19/23 07:20 Resp 16 10/19/23 07:20 BP 118/70 10/19/23 07:20 Pulse Ox 94 10/19/23 07:20 O2 Del Method Room Air 10/19/23 07:20 BMI result Body Mass Index 32.1 Appearance: Alert.? Oriented X3.? not in distress.? Eyes: Pupils equal, round and reactive to light.? Sclera nonicteric.? ENT: Pharynx normal.? Moist mucous membranes. cvs: rrr, [id number] , no murmur res: clear to auscultation ,no rhonchii or wheezing abd: no rebound or guarding ,nt, bs present. ext pulses present , no cyanosis ,Gait well balanced well coordinated. neuro: axo3 , nonfocal. DS: Data Data Completed and Pending Labs on day of discharge: Laboratory Results - last 24 hr 10/18/23 11:22 Stl C. cayetanensis PCR Not Detected Stool Rotavirus A PCR Not Detected Stl Adenov F 40/41 PCR Not Detected Stool Astrovirus (PCR) Not Detected Stool Campylobacter PCR Not Detected Stool Cryptosporidium PCR Not Detected Stl Sh Tox Pr E STEC PCR Not Detected Stool E coli O157 PCR Not applicable Stl Enterotoxigenic E PCR Not Detected Stool EPEC (PCR) Not Detected Stool EAEC (PCR) Not Detected Stl E. histolytica PCR Not Detected Stool Giardia Lamblia PCR Not Detected Stl P. shigelloides PCR Not Detected Stool Salmonella PCR Not Detected Stool Sapovirus (PCR) Not Detected Stl Shigella/EIEC PCR Not Detected St Y.enterocolitica PCR Not Detected Stool Vibrio (PCR) Not Detected Stl Vibrio cholerae PCR Not Detected Stl Norovirus GI/GII PCR Not Detected C. difficile Tox B Gene NEGATIVE Imaging Chest x-ray: Radiologist's impression: ITS Impressions Abdomen/Pelvis CT 10/18/23 10:02 IMPRESSION: 1. Circumferential wall thickening of the cecum, ascending colon, and more minimally along the transverse colon. Mild adjacent stranding. Findings are consistent with acute colitis. No associated diverticula. Infectious or inflammatory etiology could be considered. Ischemic etiology is thought less likely. No evidence of perforation or abscess formation. 2. Likely reactive right and central mesenteric lymph nodes. Fleischner guidelines were followed. Discharge Plan Discharge Anticipated Discharge Date/Time: 10/18/23 13:19 Patient Disposition: Home, Self-Care Discharge Diagnosis: colitis Referrals: Katy Chambers MD [Primary Care Provider] - 1 Week Discharge Medications: New metronidazole 500 mg Tablet 500 mg PO Q12H Qty: 12 0RF cefuroxime axetil 500 mg Tablet 500 mg PO Q12H Qty: 12 0RF Continued multivitamin Tablet 1 tab PO DAILY Vitamin C 100 mg Tablet 100 mg PO DAILY cholecalciferol (vitamin D3) [Vitamin D3] 125 mcg (5,000 unit) Tablet 125 mcg PO DAILY cetirizine 10 mg Tablet 10 mg PO DAILY calcium carbonate [Calcium 600] 600 mg calcium (1,500 mg) Tablet 600 mg PO DAILY dicyclomine 10 mg capsule 10 mg PO BID Qty: 60 1RF hydrocortisone [Proctosol HC] 2.5 % cream with perineal applicator 1 appl CA BEDTIME PRN (Reason: hemorrhoids) Qty: 30 3RF Discharge Orders: Discharge Order (Routine); Ordered 10/19/23 Ordered By: Albert Lomas Diet: Advance to usual diet Activity on Discharge: As tolerated Stand Alone Forms: Patient Portal Discharge page Care Plan Goals: 62 y/o M with with history of hemorrhoids presented to the hospital for diarrhea, abdominal pain with colitis: Patient came to the hospital with abdominal pain, diarrhea-CT abdomen shows possible colitis: Started on IV antibiotic, blood cultures sent-patient seems to be improved significantly, to lerating diet, no fever no abdominal pain passing bowels. he is very eager to go home: Going home with p.o. antibiotic( complete p.o. Ceftin 500 mg p.o. b.i.d. for 6 days, Flagyl 500 mg p.o. b.i.d. for 6days.) Patient was strongly advised to follow-up with his PCP and further management of hemorrhoids outpatient with PCP. Health Concerns: as above. Plan of Treatment: as above. Assessment: as above.
--- NOTE | 2023-10-19 11:34 | MHC.CM.PN ---
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
== END 2023-10-19 11:40 | disposition home or self-care (01) | DRG 392 ==
LOC: HO.ED 11:35 → HO.EDOVER 13:06 → HO.S3 13:20
PROVIDERS: Admitting Provider Internal Medicine; Emergency Provider Emergency Medicine; PCP Internal Medicine; Visit Provider Internal Medicine
DX: K52.9 Noninfective gastroenteritis and colitis, unspecified (principal); E66.3 Overweight; Z68.32 Body mass index [BMI] 32.0-32.9, adult; Z87.891 Personal history of nicotine dependence; Z79.899 Other long term (current) drug therapy
CPT/HCPCS: 36415; 74177; 80053; 82248; 83605; 83690; 83735; 85007; 85027; 87040; 87177; 87209; 87493; 87507; 99221; 99285; J0696; J1836; Q9967

== ENCOUNTER → 2023-10-18 13:01 | Outpatient (BNV) | payer OTHER, SELFPAY | PROVIDERS: Admitting Provider Internal Medicine; Emergency Provider Emergency Medicine; PCP Internal Medicine; Visit Provider Internal Medicine | DX: K51.00 Ulcerative (chronic) pancolitis without complications (principal); R19.7 Diarrhea, unspecified | CPT/HCPCS: 99222; 99239 ==

== ENCOUNTER 2023-10-27 08:14 | Outpatient (AMB) | payer OTHER, SELFPAY ==
--- NOTE | 2023-10-27 08:44 | MHC.PC.OV ---
Vital Signs 10/27/23 08:47 Height 5 ft 11 in Weight 245 lb BMI 34.2 BP 116/70 Blood Pressure Location Rt brachial Position Sitting Pulse 57 Pulse Source Pulse Oximeter Pulse Oximetry (%) 96 Oxygen Delivery Method Room Air Intake Visit Reasons: Hospital follow up Intake Note: Pt is here today for Hospital follow up visit. Pt states that he finished all the antibiotics but he is still not feeling good. Pt states that he had 2 episodes of syncope. Allergies No Known Allergies Allergy (Mild, Verified 10/27/23 08:48) NOT APPLICABLE Medication List - Last Reconciled 10/27/23 by Katy Chambers MD ascorbic acid (vitamin C) (Vitamin C) 100 mg PO DAILY azelastine-fluticasone 137-50 mcg/spray 1 spray intranasal BID calcium carbonate (Calcium) 600 mg PO DAILY cetirizine 10 mg PO DAILY cholecalciferol (vitamin D3) (Vitamin D3) 125 mcg PO DAILY dicyclomine 10 mg PO BID hydrocortisone 2.5% (Proctosol HC) 1 appl SC BEDTIME PRN multivitamin 1 tab PO DAILY Tobacco use date assessed: 10/27/23 Fall risk assessment: 2 + Falls in past year Last assessed Fall Risk: 10/27/23 Dental Screening Dental Screen Date: 10/27/23 Did you have a dental visit in the last 12 months?: Yes Did you have a dental problem in the last 6 months where you did not have access to dental care?: No Was dental information given to patient?: Patient has dentist HPI Hospital follow up HPI Details Patient presents for the follow-up of hospitalization for acute colitis. Stool studies were negative patient was treated with Ceftin which he completed 2 days ago. Patient reports symptoms of watery diarrhea usually in the morning followed by more formed bowel movements up to 3 bowel movements a day which is down from at least 10 bowel movements when he was sick. Patient reports feeling generally tired denies fever chills nausea vomiting hematochezia melena weight loss. He has been eating 2 meals a day and tolerating food well. Patient had an episode of near-syncope during gi after walking up the stairs feeling hot and sweaty. Patient's is concerned about the episode. Patient refused to be evaluated in the ER following the episode in Aug. Patient denies recurrence symptoms of chest pain palpitations shortness of breath near-syncope. He has been stressed out at work. 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 1. Little interest or pleasure in doing things: not at all 2. Feeling down, depressed, or hopeless: not at all 3. Trouble falling or staying asleep, or sleeping too much: not at all 4. Feeling tired or having little energy: not at all 5. Poor appetite or overeating: not at all 6. Feeling bad about yourself - or that you are a failure or have let yourself or your family down: not at all 7. Trouble concentrating on things, such as reading the newspaper or watching television: not at all 8. Moving or speaking so slowly that other people could have noticed. Or the opposite - being so fidgety or restless that you have been moving around a lot more than usual: not at all 9. Thoughts that you would be better off or of hurting yourself in some way: not at all Total score: 0 Depression Screening Interpretation: Negative Depression Screening Done: Yes Source: Developed by Hannah Cortes, Uday Weber and colleagues, with an educational aleshia from [employer]. Thrive Questionnaire Date Thrive assessed: 10/27/23 I am a: Patient What is your living situation today?: I have a steady place to live Within the past 12 months, did the food you bought not last and you didn't have the money to get more?: Never true Within the past 12 months, did you worry whether your food would run out before you got money to buy more?: Never true Do you have trouble paying for medicines?: No Do you have trouble getting transportation to medical appointments?: No Do you have trouble paying your heating and electricity bill?: No Do you have trouble taking care of your child, family member or friend?: No Do you have trouble with day-to-day activities such as bathing, preparing meals, shopping, managing finances, etc.?: No Are you currently unemployed and looking for a job?: No Are you interested in more education?: No Please select the resources that you would like help with: None Currently or been in a relationship where the following occur: no concerns reported AUDIT C Alcohol Use Questionnaire (AUDIT-C) 1. How often do you have a drink containing alcohol?: Never 3. How often do you have six or more drinks on one occasion?: Never Total Score: 0 JETHRO-7 AMB Questionnaire JETHRO-7 Date JETHRO - 7 assessed: 10/27/23 Feeling nervous, anxious, or on edge: 0 = Not at all Not being able to stop or control worryin = Not at all Worrying too much about different things: 0 = Not at all Trouble relaxin = Not at all Being so restless that it is hard to sit still: 0 = Not at all Becoming easily annoyed or irritable: 0 = Not at all Feeling afraid as if something awful might happen: 0 = Not at all Total JETHRO-7 score (0-4 normal; 5-9 mild; 10-14 moderate; 15-21 severe): 0 Source: Developed by Hannah Cortes Kurt Kroenke and colleagues, with an educational aleshia from [employer]. Review of Systems Const All systems reviewed & are unremarkable except as noted in HPI and below Reports no additional complaints Eyes Reports no additional complaints ENT Reports no additional complaints Card Reports no additional complaints Resp Reports no additional complaints GI Reports no additional complaints Reports no additional complaints Musc Reports no additional complaints Physical exam (Primary Care) Vital Signs: Last Vital Signs Pulse 57 10/27/23 08:47 BP 116/70 10/27/23 08:47 Pulse Ox 96 10/27/23 08:47 Oxygen Delivery Method Room Air 10/27/23 08:47 BMI result Body Mass Index 34.2 Tobacco/Smoking Status: Tobacco use Status Tobacco use date assessed 10/27/23 10/27/23 08:55 Patient Tobacco Use Status Former Tobacco user 10/27/23 08:55 Tobacco use type Cigarette 10/27/23 08:44 e-Cigarette/Vaping Use Never Used 10/27/23 08:44 PHQ-9: PHQ-9 Score PHQ-9: Total score 0 10/27/23 08:58 Depression Screening Interpretation: Negative Thrive Assessment: Date of Thrive Assessment Date Thrive assessed 10/27/23 10/27/23 08:57 Currently or been in a relationship where the following occur: no concerns reported Const General: no acute distress HENMT Head: Yes normal to inspection Ears: hearing grossly normal bilaterally Eyes General: appearance normal, both eyes and all related structures Resp Effort & Inspection: normal respiratory effort Auscultation: clear to auscultation bilaterally Cardio Rhythm: regular rhythm Heart sounds: S1 normal heart sound present and S2 normal heart sound present GI Inspection: Yes normal to inspection Palpation (GI): Soft to palpation Percussion: Yes normal to percussion Auscultation: normal bowel sounds Assessment and Plan Assessment & Plan (1) Diarrhea: Code(s): R19.7 - Diarrhea, unspecified Qualifiers: Diarrhea type: presumed infectious Qualified Code(s): R19.7 - Diarrhea, unspecified Plan: For persistent diarrhea C diff stool studies will be obtained. 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 for the followup (2) Pancolitis: Code(s): K51.00 - Ulcerative (chronic) pancolitis without complications (3) Syncope: Code(s): R55 - Syncope and collapse Plan: EKG shows sinus bradycardia no ST-T changes, For the episodes of near-syncope after physical activity patient will be referred for a nuclear stress test to evaluate for ischemia/angina (4) Sleep apnea: Code(s): G47.30 - Sleep apnea, unspecified Plan: Obtain sleep study Orders: Orders Complete Blood Count Auto Diff Today K51.00 - Ulcerative (chronic) pancolitis without complications, R19.7 - Diarrhea, unspecified NM cardiolite stress test Today I20.89 - Other forms of angina pectoris, R55 - Syncope and collapse CDiff Gene PCR Today K51.00 - Ulcerative (chronic) pancolitis without complications, R19.7 - Diarrhea, unspecified Comprehensive Met. Panel Today K51.00 - Ulcerative (chronic) pancolitis without complications, R19.7 - Diarrhea, unspecified CA stress test Today I20.89 - Other forms of angina pectoris RT home sleep study Today G47.30 - Sleep apnea, unspecified Referrals Gastroenterology Referral K51.00 - Ulcerative (chronic) pancolitis without complications, R19.7 - Diarrhea, unspecified, Z00.00 - Encounter for general adult medical examination without abnormal findings Medications: New fluticasone propionate 50 mcg/actuation administer into each nostril 1 spray intranasal BID 16 grams 3RF Refilled hydrocortisone 2.5% (Proctosol HC) 1 appl SC BEDTIME PRN 30 grams 3RF hemorrhoids Coding Level of Care Code Est Pt Level 4 (25941) Diagnoses Diarrhea R19.7 Diarrhea type: presumed infectious Pancolitis K51.00 Syncope R55 Sleep apnea G47.30
[2023-10-27 08:47] VITALS: BP 116/70; PULSE 57; O2SAT 96; BMI 34.2
== END 2023-10-27 09:43 | disposition home or self-care (01) ==
PROVIDERS: PCP Internal Medicine; Visit Provider Internal Medicine
DX: R19.7 Diarrhea, unspecified (principal); K51.00 Ulcerative (chronic) pancolitis without complications; R55 Syncope and collapse; G47.30 Sleep apnea, unspecified
CPT/HCPCS: 99214

== ENCOUNTER 2023-10-27 09:44 | Outpatient (REF) | payer OTHER, SELFPAY | END 2023-10-27 09:45 | disposition home or self-care (01) | LOC: HO.HMGCLDS 09:44 | PROVIDERS: PCP Internal Medicine; Visit Provider Internal Medicine | DX: R19.7 Diarrhea, unspecified (principal); K51.00 Ulcerative (chronic) pancolitis without complications | CPT/HCPCS: 36415; 80053; 85025 ==

== ENCOUNTER 2023-10-28 07:18 | Outpatient (REF) | payer OTHER, SELFPAY ==
[2023-10-28 13:34] LABS: CDiff Gene PCR NEGATIVE (Negative)
== END 2023-10-28 07:19 | disposition home or self-care (01) ==
LOC: HO.HMGCLNP 07:18
PROVIDERS: PCP Internal Medicine; Visit Provider Internal Medicine
DX: K51.00 Ulcerative (chronic) pancolitis without complications (principal); R19.7 Diarrhea, unspecified
CPT/HCPCS: 87493

== ENCOUNTER 2023-11-28 13:56 | Outpatient (AMB) | payer OTHER, SELFPAY ==
[2023-11-28 14:53] VITALS: BP 124/76; PULSE 60; O2SAT 97; BMI 32.8
--- NOTE | 2023-11-28 14:53 | A.OFFPC_ITS ---
Vital Signs 11/28/23 14:53 Height 5 ft 11 in Weight 235 lb BMI 32.8 BP 124/76 Blood Pressure Location Lt brachial Position Sitting Pulse 60 Pulse Source Pulse Oximeter Pulse Oximetry (%) 97 Oxygen Delivery Method Room Air Intake Visit Reasons: Knee Injury Intake Note: Pt is here today for a sick visit. Pt c/o pain in his R knee since 11/16/23 since skiing. Allergies No Known Allergies Allergy (Mild, Verified 11/28/23 14:56) NOT APPLICABLE Tobacco use date assessed: 10/27/23 HPI Knee Injury HPI Details Pt c/o R knee medial aspect pain stiffness and swelling started while skiing 1 week ago. The pain is worse when patient is walking. He has been wearing a brace which gives a good support. 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 Do you presently have visiting nurse or other home services: No Alcohol intake: current Alcohol intake frequency: a few times a month Patient Tobacco Use Status: Former Tobacco user Quit Date: 33 yrs ago Tobacco use type: Cigarette e-Cigarette/Vaping Use: Never Used Second Hand Smoke Exposure: No service: Yes Current occupational status: employed 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 Arthur Espino, Hannah Khan, Uday Weber and colleagues, with an educational aleshia from [employer] Review of Systems Const All systems reviewed & are unremarkable except as noted in HPI and below Reports no additional complaints Eyes Reports no additional complaints ENT Reports no additional complaints Card Reports no additional complaints Resp Reports no additional complaints GI Reports no additional complaints Physical exam (Primary Care) Vital Signs: Last Vital Signs Pulse 60 11/28/23 14:53 BP 124/76 11/28/23 14:53 Pulse Ox 97 11/28/23 14:53 Oxygen Delivery Method Room Air 11/28/23 14:53 BMI result Body Mass Index 32.8 Tobacco/Smoking Status: Tobacco use Status Tobacco use date assessed 10/27/23 11/28/23 14:57 Patient Tobacco Use Status Former Tobacco user 11/28/23 14:57 Tobacco use type Cigarette 11/28/23 14:57 e-Cigarette/Vaping Use Never Used 11/28/23 14:57 Thrive Assessment: Date of Thrive Assessment Date Thrive assessed 10/27/23 11/28/23 14:57 Const General: no acute distress HENMT Head: Yes normal to inspection Resp Effort & Inspection: normal respiratory effort Auscultation: clear to auscultation bilaterally Cardio Rhythm: regular rhythm Heart sounds: S1 normal heart sound present and S2 normal heart sound present Extrem Other: Right knee decreased range of motion soft tissue swelling tenderness in the medial aspect of knee Assessment and Plan Assessment & Plan (1) Right knee meniscal tear: Code(s): S83.206A - Unspecified tear of unspecified meniscus, current injury, right knee, initial encounter Plan: For right knee injury and pain x-ray and MRI will be obtained to evaluate for meniscus tear. Patient was advised to avoid strenuous exercise like skiing until the results of MR are available Orders: Orders MR knee RT wo con Today S83.206A - Unspecified tear of unspecified meniscus, current injury, right knee, initial encounter Coding Level of Care Code Est Pt Level 3 (40133) Diagnoses Right knee meniscal tear S83.206A
== END 2023-11-28 15:44 | disposition home or self-care (01) ==
PROVIDERS: PCP Internal Medicine; Visit Provider Internal Medicine
DX: S83.206A Unspecified tear of unspecified meniscus, current injury, right knee, initial encounter (principal)
CPT/HCPCS: 99213

== ENCOUNTER 2023-11-28 15:25 | Outpatient (REF) | payer OTHER, SELFPAY ==
--- NOTE | ~2023-11-28 | XR_ITS ---
EXAMINATION: XR KNEE, RIGHT CLINICAL INFORMATION: Right knee pain COMPARISON: None available. TECHNIQUE: Four views of the right knee. FINDINGS: There is mild loss of tricompartment joint space with periarticular spurring. No bony erosive changes seen. There is mild suprapatellar joint effusion. No loose bodies or acute fracture, dislocation. There is small anterior superior patellar enthesophyte. XR/XR knee RT 4V IMPRESSION: Mild degenerative changes right knee with mild suprapatellar joint effusion. No visible acute fracture, dislocation or subluxation seen.
== END 2023-11-28 15:26 | disposition home or self-care (01) ==
LOC: HO.HMGCX 15:25
PROVIDERS: PCP Internal Medicine; Visit Provider Internal Medicine
DX: S83.206A Unspecified tear of unspecified meniscus, current injury, right knee, initial encounter (principal)
CPT/HCPCS: 73564

== ENCOUNTER → 2023-12-04 16:11 | Outpatient (REF) | payer OTHER, SELFPAY | LOC: HO.SL 16:11 | PROVIDERS: PCP Internal Medicine; Visit Provider Internal Medicine | DX: G47.33 Obstructive sleep apnea (adult) (pediatric) (principal) | CPT/HCPCS: 95806 ==

== ENCOUNTER → 2023-12-04 16:18 | Outpatient (BNV) | payer OTHER, SELFPAY | PROVIDERS: PCP Internal Medicine; Visit Provider Internal Medicine | DX: G47.33 Obstructive sleep apnea (adult) (pediatric) (principal) | CPT/HCPCS: 95806 ==

== ENCOUNTER 2023-12-09 13:25 | Emergency (ER) | payer OTHER, SELFPAY ==
--- NOTE | ~2023-12-09 | CT_ITS ---
EXAMINATION: CT ABDOMEN AND PELVIS WITHOUT CONTRAST CLINICAL INFORMATION: Abdominal pain. rectal bleeding. colitis?. COMPARISON: 10/18/2023. TECHNIQUE: Multidetector volumetric imaging was performed from the superior aspect of the liver through the pubic symphysis without contrast per request. Sagittal and coronal reformatted images were obtained on the technologist workstation. This CT examination was performed using dose optimization techniques as appropriate, variously including the following: *Automated exposure control *Adjustment of mA and/or kV according to patient size (this includes techniques or standardized protocols for targeted exams where dose is matched to indication/reason for exam; i.e. extremities or head) *Use of iterative reconstruction technique DLP: 762 mGy-cm. FINDINGS: LUNG BASES: The visualized lung bases are unremarkable. LIVER, GALLBLADDER, BILIARY TREE: The non-contrast liver is normal in size, shape, and attenuation. No focal hepatic lesion or biliary ductal dilatation is present. The gallbladder is unremarkable with no evidence of radiopaque gallstones, gallbladder wall thickening, or obvious pericholecystic inflammatory changes. PANCREAS: Unremarkable. SPLEEN: Unremarkable. ADRENAL GLANDS: Unremarkable. KIDNEYS AND URETERS: The kidneys are normal in size, shape, and attenuation. No hydronephrosis, hydroureter, or perinephric stranding. No calculi. BLADDER: Unremarkable. GASTROINTESTINAL TRACT: Colon is decompressed. There is scattered colonic diverticulosis. I do not appreciate any definitive colonic wall thickening or pericolonic inflammatory change to suggest diverticulitis or obvious focal colitis currently. Normal-appearing appendix in the right lower quadrant. Visualized small bowel grossly unremarkable ABDOMINAL WALL: No significant hernia is appreciated. LYMPHOVASCULAR STRUCTURES: Vascular calcification within the aorta iliac system. No bulky adenopathy. PELVIC VISCERA: Unremarkable. OSSEUS STRUCTURES: Unremarkable. CT/CT abdomen pelvis wo IV con IMPRESSION: Scattered diverticulosis but no evidence for diverticulitis. Colon is decompressed but I do not appreciate any obvious focal colonic wall thickening or pericolonic inflammatory change. No obstructive changes to the bowel. No acute intra-abdominal process seen otherwise.
[2023-12-09 13:48] VITALS: BP 158/90; PULSE 67; RESP 18; TEMP 36.6; O2SAT 98; BMI 32.1
--- NOTE | 2023-12-09 13:50 | ED.GENADULT ---
HPI - General Adult General Chief complaint: General Medical Stated complaint: Testicular Pain Time Seen by Provider: 12/09/23 21:28 Source: patient and family (Spouse) Mode of arrival: ambulatory Limitations: no limitations History of Present Illness HPI narrative: 63-year-old male came in for evaluation of rectal pain for the past 2 months. Patient had a history of colitis and hemorrhoids patient had a prior admission for colitis and is scheduled to follow-up with GI this month for colitis but patient been having an intermittent rectal pain due to existing external and internal hemorrhoids. Pain is usually during the daytime feels severe rectal pain make the patient can not sit down or stand for long time, the hemorrhoid bleeds intermittently. Patient is worried because it affects his lifestyle and would like to be evaluated by a surgeon for considering surgical removal. Now patient in the ED has no rectal pain, no constipation, last bowel movement was this morning, no nausea, no vomiting, no fever, no chills. Related Data Home Medications Medication Instructions Recorded Confirmed ascorbic acid (vitamin C) 100 mg 100 mg PO DAILY 08/08/22 10/27/23 tablet (Vitamin C) cholecalciferol (vitamin D3) 125 125 mcg PO DAILY 08/08/22 10/27/23 mcg (5,000 unit) tablet (Vitamin D3) multivitamin 1 tab PO DAILY 08/08/22 10/27/23 calcium carbonate 600 mg calcium 600 mg PO DAILY 10/18/23 10/27/23 (1,500 mg) tablet (Calcium) cetirizine 10 mg tablet 10 mg PO DAILY 10/18/23 10/27/23 azelastine 137 mcg-fluticasone 50 1 spray intranasal BID 10/27/23 10/27/23 mcg/spray nasal spray Previous Rx's Medication Instructions Recorded fluticasone propionate 50 1 spray intranasal BID #16 grams 10/27/23 mcg/actuation nasal spray,suspension hydrocortisone 2.5 % topical cream 1 appl HI BEDTIME PRN hemorrhoids 10/27/23 with perineal applicator #30 grams (Proctosol HC) dicyclomine 10 mg capsule 10 mg PO BID #180 caps 12/03/23 Allergies Allergy/AdvReac Type Severity Reaction Status Date / Time No Known Allergies Allergy Mild NOT Verified 12/09/23 13:48 APPLICABLE Review of Systems Review of Systems: All other systems are reviewed and are negative Constitutional: Reports as per HPI and Reports no additional constitutional complaints Eyes: Reports as per HPI and Reports no additional eye complaints Reports system reviewed and no additional complaints, except as documented Cardiovascular: Reports as per HPI and Reports no additional cardiovascular complaints Respiratory: Reports as per HPI and Reports no additional respiratory complaints Gastrointestinal: Reports as per HPI and Reports no additional gastrointestinal complaints Genitourinary: Reports no additional female genitourinary complaints Musculoskeletal: Reports no additional musculoskeletal complaints Skin/Breast: Reports system reviewed and no additional complaints, except as docu Psychiatric: Reports no additional psychiatric complaints Endocrine: Reports no additional endocrine complaints Hematologic/Lymphatic: Reports no additional hematologic/lymphatic complaints Allergic/Immunologic: Reports no additional allergic/immunologic complaints Reports system reviewed and no additional complaints, except as documented and Reports Abnormal speech present PMFSH Past Medical History Medical History Hemorrhoids with complication Surgical History Hx of umbilical hernia repair Hx of wisdom tooth extraction Hx of knee surgery Hx of colonoscopy Family History Family History Father Substance use disorder Mother CAD (coronary artery disease), Onset Age: 60 Brother Hodgkin disease Social History Social History Household Members: Spouse 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:: , 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 Do you presently have visiting nurse or other home services: No Alcohol intake: current Alcohol intake frequency: holidays/special occasions only Patient Tobacco Use Status: Former Tobacco user Quit Date: 33 yrs ago Tobacco use type: Cigarette Smoked in Last 30 Days: No e-Cigarette/Vaping Use: Never Used Second Hand Smoke Exposure: No Use of substances other than those prescribed or required for medical reasons: No Advance Directives: No Advance Directives Information Provided: No service: Yes Current occupational status: employed Current occupation: [employer] Current occupational exposures/hazards: Yes Cognitive needs: No Hearing needs: No Vision needs: Yes Physical Exam ED Vital Signs: Vital Signs - 24 hr 12/09/23 13:48 12/09/23 21:18 Temperature 98 F 98.1 F Pulse Rate 67 59 Respiratory Rate 18 14 Blood Pressure 158/90 H 143/81 H Pulse Oximetry 98 96 Oxygen Delivery Method Room Air Room Air BMI result Body Mass Index 32.1 Vital signs have been reviewed and appear to be correct. Blood pressure elevated. Heart rate normal. Respiratory rate normal. Temperature normal. Oxygen saturation normal. Appearance: Alert. Oriented X3. No acute distress. Head: Normal external exam. Normocephalic. Atraumatic. No [place] signs noted. No raccoon eyes noted Eyes: PERRLA. EOMI. Conjunctiva and sclera normal. Eyelids normal. ENT: TM's Normal. Pharynx normal. Uvula midline. Moist mucous membranes. No trismus noted. No drooling noted. No muffled voice noted. Neck: Normal inspection. Neck supple. FROM. No adenopathy. Thyroid Normal. No meningeal signs. No neck mass noted. CVS: Normal heart rate and rhythm. Heart sound normal. No murmurs noted. Pulses normal throughout. Respiratory: No respiratory distress. Painless inspiration. Breath sounds normal. No wheezes/rales/rhonchi noted. Chest nontender. No accessory muscle usage noted or decreased air movement noted. Abdomen: Soft and nontender. Bowel sounds normal in all 4 quadrants. No distention noted. No organomegaly noted. No visible injury noted. Rectal exam: Small external and palpable internal hemorrhoids at 03:00 o'clock, no tenderness, no bleeding, no palpable thrombosis. exam: Normal inspection, circumcised, no scrotal or testicular tenderness, patent cremasteric reflexes bilaterally. Back: No CVA tenderness. Full range of motion noted. Skin: Skin warm and dry. Normal skin color. Normal skin turgor. No rashes/lesions/lacerations noted. Extremities: No lower extremity edema. Extremities exhibit normal range of motion. Extremities nontender. Neuro: Oriented X 3. Cranial nerve exam: II-XII are grossly intact No motor deficit. No sensory deficit. Reflexes normal. Course Course Course Narrative: RME: 63 yold male with pmh of colitis, hemrrhodis presents to the ED for lower abdominal pain, rectal pain, and slight rectal bleeding since september. Vital signs stable. labs ordered Reevaluation(s) Reevaluation #1: External/internal hemorrhoids that not complicated at this point, patient have a great interest to removed surgically and would like a referral to a surgeon however patient has a GI follow-up. Will refer to Dr. Claros as an outpatient for consultation and possible elective surgical removal of the hemorrhoids. Time: 21:51 Medical Decision Making Differential Diagnosis Differential Diagnoses: The differential diagnosis associated with the presentation includes (Colitis, diverticulitis, external or internal thrombosed hemorrhoids, GI bleed, severe anemia, electrolyte derangement) Admission/Observation Consideration of admission/observation: Escalation of care including admission/observation considered Lab Data MDM Lab Attestation statement: I reviewed the patient's lab results. 12/09/23 15:04 12/09/23 15:04 Labs: Lab Results 12/09/23 12/09/23 Range/Units 15:04 21:37 WBC 8.6 (4.8-10.8) X10*3/uL RBC 4.69 (4.60-5.80) X10*6/uL Hgb 14.7 (14.0-18.0) g/dl Hct 43.0 (42.0-52.0) % MCV 91.7 (80.0-98.0) fL MCH 31.3 (27.0-33.0) pg MCHC 34.2 (31.0-36.0) g/dl RDW 12.5 (11.0-16.0) % Plt Count 311 (160-400) X10*3/uL MPV 9.8 (9.4-12.4) fL Immature Gran % (Auto) 0.3 (0.0-0.4) % Neut % (Auto) 68.3 (45-73) % Lymph % (Auto) 18.3 L (20-40) % [place] % (Auto) 9.3 (2-11) % Eos % (Auto) 3.0 (0-4) % Baso % (Auto) 0.8 (0-2) % Lymph # (Auto) 1.6 (1.2-4.9) X10*3/uL [place] # (Auto) 0.8 (0.1-1.2) X10*3/uL Eos # (Auto) 0.3 (0.0-0.4) X10*3/uL Baso # (Auto) 0.1 (0.0-0.2) X10*3/uL Abs Immat Gran (auto) 0.03 (0.00-0.03) X10*3/uL Absolute Neuts (auto) 5.9 (2.0-8.3) x10*3/uL Absolute Nucleated RBC 0.000 (0.0-0.012) X10*3/uL Nucleated RBC % (auto) 0.0 (0.0-0.2) /100WBC PT 11.9 (11.1-13.3) SEC INR 1.0 (0.9-1.1) APTT 28.9 (26.0-36.8) SEC Sodium 136 (135-145) mmol/L Potassium 4.0 (3.3-5.1) mmol/L Chloride 106 (96-108) mmol/L Carbon Dioxide 23 (22-29) mmol/L Anion Gap 11 L (12-20) BUN 17 H (9-16) mg/dL Creatinine 0.86 (0.5-1.4) mg/dL Estim Creat Clear Calc 105.2 Estimated GFR > 60 Random Glucose 104 (60-115) mg/dL Calcium 10.0 (8.4-10.2) mg/dL Total Bilirubin 0.5 (0.0-1.0) mg/dL AST 18 (5-37) U/L ALT 22 (0-40) U/L Alkaline Phosphatase 72 (39-117) U/L Total Protein 7.9 (6.5-8.0) g/dL Albumin 4.0 (3.5-5.0) g/dL Lipase 42 (8-78) U/L Urine Color Yellow Urine Appearance Clear Urine pH 5.5 (5.0-9.0) Ur Specific [place] 1.025 (1.005-1.025) Urine Protein Negative (Neg-Trace) mg/dL Urine Glucose (UA) Negative (Negative) mg/dL Urine Ketones Trace (Negative) mg/dL Urine Blood Negative (Negative) Urine Nitrite Negative (Negative) Ur Leukocyte Esterase Negative (Negative) Independent Interpretation I performed an independent interpretation of an: CT Scan (Abdomen and pelvis:Scattered diverticulosis but no evidence for diverticulitis. Colon is decompressed but I do not appreciate any obvious focal colonic wall thickening or pericolonic inflammatory change. No obstructive changes to the bowel. No acute intra-abdominal process seen otherwise. ) Radiology Impression Discussion of test interpretation with radiology: I have reviewed the radiologist's reading. Chronic Conditions Patient?s care impacted by: Other (Hemorrhoids) Discharge Plan Discharge Clinical Impression: Hemorrhoids Patient Disposition: Home, Self-Care Instructions: Hemorrhoids (ED) Prescriptions: No Action dicyclomine 10 mg capsule 10 mg PO BID Qty: 180 1RF multivitamin Tablet 1 tab PO DAILY Vitamin C 100 mg Tablet 100 mg PO DAILY cholecalciferol (vitamin D3) [Vitamin D3] 125 mcg (5,000 unit) Tablet 125 mcg PO DAILY cetirizine 10 mg Tablet 10 mg PO DAILY calcium carbonate [Calcium 600] 600 mg calcium (1,500 mg) Tablet 600 mg PO DAILY azelastine-fluticasone 137-50 mcg/spray spray,non-aerosol 1 spray intranasal BID Rx Instructions: administer into each nostril hydrocortisone [Proctosol HC] 2.5 % cream with perineal applicator 1 appl HI BEDTIME PRN (Reason: hemorrhoids) Qty: 30 3RF fluticasone propionate 50 mcg/actuation spray,suspension 1 spray intranasal BID Qty: 16 3RF Rx Instructions: administer into each nostril Referrals: Katy Chambers MD [Primary Care Provider] - Asael Claros MD [Physician] - Interventions: ED Discharge Assessment Last Done: 12/09/23 22:33 Discharge Date/Time: 12/09/23 22:34
[2023-12-09 15:44] LABS: MANUAL DIFF FLAG NO
[2023-12-09 15:48] LABS: Basophils Absolute Auto 0.1 X10*3/uL (0.0-0.2); Basophils Percent Auto 0.8 % (0-2); Eosinophils Absolute Auto 0.3 X10*3/uL (0.0-0.4); Hemoglobin 14.7 g/dl (14.0-18.0); Imm Gran Abs Auto 0.03 X10*3/uL (0.00-0.03); Imm Gran Pct Auto 0.3 % (0.0-0.4); Lymphocytes Absolute Auto 1.6 X10*3/uL (1.2-4.9); Lymphocytes Percent Auto 18.3 % (20-40); Mean Corpuscular HGB Conc 34.2 g/dl (31.0-36.0); Mean Corpuscular Hemoglobin 31.3 pg (27.0-33.0); Mean Corpuscular Volume 91.7 fL (80.0-98.0); Mean Platelet Volume 9.8 fL (9.4-12.4); Monocytes Absolute Auto 0.8 X10*3/uL (0.1-1.2); Monocytes Percent Auto 9.3 % (2-11); Neutrophils Absolute Auto 5.9 x10*3/uL (2.0-8.3); Neutrophils Percent Auto 68.3 % (45-73); Platelet Count 311 X10*3/uL (160-400); Red Blood Count 4.69 X10*6/uL (4.60-5.80); Red Cell Distribution Width 12.5 % (11.0-16.0); White Blood Count 8.6 X10*3/uL (4.8-10.8)
[2023-12-09 15:57] LABS: Prothrombin Time 11.9 SEC (11.1-13.3)
[2023-12-09 16:00] LABS: Partial Thromboplastin Time 28.9 SEC (26.0-36.8)
[2023-12-09 16:01] LABS: Alanine Aminotransferase 22 U/L (0-40); Alkaline Phosphatase 72 U/L (39-117); Anion Gap 11 (12-20); Aspartate Amino Transferase 18 U/L (5-37); Bilirubin Total 0.5 mg/dL (0.0-1.0); Blood Urea Nitrogen 17 mg/dL (9-16); Carbon Dioxide 23 mmol/L (22-29); Chloride 106 mmol/L (96-108); Creatinine Clr Calc Pharmacy 105.2; Estimated Glomerular Filt Rate > 60; Glucose Random 104 mg/dL (60-115); Lipase 42 U/L (8-78); Sodium 136 mmol/L (135-145); Total Protein 7.9 g/dL (6.5-8.0)
[2023-12-09 21:18] VITALS: BP 143/81; PULSE 59; RESP 14; TEMP 36.7; O2SAT 96
[2023-12-09 21:43] LABS: Appearance Urine Clear; Color Urine Yellow; Glucose Urine UA Negative (Negative); Leukocyte Esterase Urine Negative (Negative); Nitrite Urine Negative (Negative); PH 5.5 (5.0-9.0); Specific Gravity - Urine 1.025 (1.005-1.025); Urine Blood Negative (Negative); Urine Ketones Trace mg/dL (Negative); Urine Protein Negative (Neg-Trace)
== END 2023-12-09 22:34 | disposition home or self-care (01) ==
PROVIDERS: Physician Assistant; Emergency Provider Emergency Medicine; PCP Internal Medicine
DX: K64.9 Unspecified hemorrhoids (principal); N50.819 Testicular pain, unspecified; R10.2 Pelvic and perineal pain; Z79.899 Other long term (current) drug therapy
CPT/HCPCS: 36415; 74176; 80053; 81003; 83690; 85025; 85610; 85730; 99284

== ENCOUNTER 2023-12-11 08:08 | Outpatient (AMB) | payer OTHER, SELFPAY ==
[2023-12-11 08:14] VITALS: BMI 32.1
--- NOTE | 2023-12-11 08:14 | A.OFFVIS_ITS ---
Intake Vital Signs 12/11/23 08:14 Height 5 ft 11 in Weight 230 lb BMI 32.1 Intake Visit Reasons: Bleeding hemorrhoids Intake Note: This patient presents for [facility] emergency department follow-up for bleeding hemorrhoids. Patient c/o; reports unable to sit, reports pain, reports occasional rectal bleeding. 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 Accompanied by: Self / Same As Patient Allergies No Known Allergies Allergy (Mild, Verified 12/11/23 08:23) NOT APPLICABLE Medication List - Last Reconciled 12/11/23 by Asael Claros MD ascorbic acid (vitamin C) (Vitamin C) 100 mg PO DAILY azelastine-fluticasone 137-50 mcg/spray 1 spray intranasal BID calcium carbonate (Calcium) 600 mg PO DAILY cetirizine 10 mg PO DAILY cholecalciferol (vitamin D3) (Vitamin D3) 125 mcg PO DAILY dicyclomine 10 mg PO BID fluticasone propionate 50 mcg/actuation 1 spray intranasal BID hydrocortisone 2.5% (Proctosol HC) 1 appl AL BEDTIME PRN multivitamin 1 tab PO DAILY HPI Bleeding hemorrhoids HPI Details 63-year-old male referred for hemorrhoid issues. He says that he has known he has had hemorrhoids for several years. These really did not bother him before. However for the past few months, he says that the symptoms have worsened significantly. He describes frequent prolapse of his hemorrhoids and states that this become very swollen and painful. He says that he often has to manually reduce this hemorrhoids. He states that this has affected his lifestyle significantly. He also does a lot of traveling in the car were and this has been difficult for him because of the discomfort with his hemorrhoids whenever he is sitting down. He describes periodic bleeding as well. He feels that he is symptoms have worsened significantly after he had severe diarrhea last September,. He says that he has hemorrhoids became irritated at that time and he this has not really improved. 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 Do you presently have visiting nurse or other home services: No Alcohol intake: current Alcohol intake frequency: holidays/special occasions only Patient Tobacco Use Status: Former Tobacco user Quit Date: 33 yrs ago Tobacco use type: Cigarette e-Cigarette/Vaping Use: Never Used Second Hand Smoke Exposure: No service: Yes Current occupational status: employed Current occupation: [employer] Current occupational exposures/hazards: Yes Cognitive needs: No Hearing needs: No Vision needs: Yes Review of Systems Const Denies chills and Denies fever(s) Card Denies chest pain, Denies dyspnea and Denies dyspnea on exertion Resp Denies cough, Denies dyspnea and Denies dyspnea on exertion GI Reports hematochezia and Denies change in bowel habits Denies hematuria and Denies difficulty urinating Musc Denies back pain and Denies limited range of motion Neuro Denies focal weakness and Denies convulsions Psych Denies depression and Denies mood swings Physical Exam Vital Signs: BMI result Body Mass Index 32.1 Const General: comfortable and no acute distress Orientation/consciousness: patient oriented x3 Neck Neck: Yes no lymphadenopathy Resp Auscultation: clear to auscultation bilaterally Cardio Rhythm: regular rhythm GI Other: Rectal exam shows a bulky hemorrhoidal column on the left and a small amount of the right. Digital exam and anoscopy was not done because of his discomfort currently Palpation (GI): Soft to palpation, nontender and no guarding Neuro General: patient oriented x3 Assessment & Plan Assessment & Plan (1) Hemorrhoids that prolapse with straining and require manual replacement back inside anal canal: Code(s): K64.2 - Third degree hemorrhoids Plan: He describes worsening symptoms with this hemorrhoids. He states that these prolapse frequently and require manual reduction. He describes frequent swelling, pain and tenderness. He is unable to sit done anymore for long periods of time because of discomfort He wants to proceed with hemorrhoidectomy I had a long discussion with him about the technique of this procedure. I discussed the risks including but not limited to bleeding, severe pain and infections, as well as the benefits and alternatives. I reviewed with him what to expect postoperatively He says he understands and wants to proceed. Coding Level of Care Code New Pt Level 3 (04917) Diagnoses Hemorrhoids that prolapse with straining and require manual replacement back inside anal canal K64.2
== END 2023-12-11 08:43 | disposition home or self-care (01) ==
PROVIDERS: PCP Internal Medicine; Visit Provider Surgery
DX: K64.2 Third degree hemorrhoids (principal)
CPT/HCPCS: 99214

== ENCOUNTER → 2023-12-11 08:08 | Outpatient (BNVA) | payer OTHER, SELFPAY | PROVIDERS: PCP Internal Medicine; Visit Provider Surgery ==

== ENCOUNTER 2024-01-09 06:08 | Day surgery (SDC) | payer OTHER, SELFPAY ==
[2024-01-07 09:38] VITALS: BMI 33.5
--- NOTE | 2024-01-08 08:47 | HO.ANESPROP2 ---
Documented by User: Valeria Rcihey NP 01/08/24 08:51 HPI - Anesthesia Eval Consult details Narrative: 63yo M for Exam Under Anesthesia, Hemorrhoidectomy 10/2023 PCP eval for near-syncope. Nuc Stress ordered, but OK to proceed with hemorrhoidectomy without nuc stress. [facility] Active Problems Active Problems: All Active Problems (Updated 01/07/24 @ 09:22 by Abril Styles, IDA) Right knee meniscal tear (Acute) Sleep apnea (Acute) Syncope (Acute) Angina at rest (Acute) Pancolitis (Acute) Diarrhea (Acute) Bandemia (Acute) Hyperlipidemia (Acute) Vitamin D deficiency (Acute) Diarrhea (Acute) Change in bowel habit (Acute) Encounter for screening colonoscopy (Acute) Hemorrhoids (Acute) Morbid (severe) obesity due to excess calories (Acute) Overweight (Acute) Diastasis recti (Acute) Umbilical hernia (Acute) Hernia (Acute) Annual physical exam (Acute) Hemorrhoids that prolapse with straining and require manual replacement back inside anal canal (Acute) Hemorrhoids with complication (Acute) Past Medical History Medical History (Updated 01/07/24 @ 09:22 by Abril Styles RN) Angina at rest Elevated cholesterol Sleep apnea Hemorrhoids that prolapse with straining and require manual replacement back inside anal canal Hemorrhoids with complication Family History Family History Father Substance use disorder Mother CAD (coronary artery disease), Onset Age: 60 Brother Hodgkin disease Family history of problems with anesthesia: No Surgical History Surgical History Hx of umbilical hernia repair Hx of wisdom tooth extraction Hx of knee surgery Hx of colonoscopy History of Problems with Anesthesia: No Social History Social History Household Members: Spouse 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:: , 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: House Do you presently have visiting nurse or other home services: No Alcohol intake: current Alcohol intake frequency: holidays/special occasions only Patient Tobacco Use Status: Former Tobacco user Quit Date: 35 years Tobacco use type: Cigarette e-Cigarette/Vaping Use: Never Used Second Hand Smoke Exposure: No Use of substances other than those prescribed or required for medical reasons: No Are you DNR?: No Advance Directives: No Advance Directives Information Provided: Yes service: Yes Current occupational status: employed 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 Current occupational exposures/hazards: Yes Cognitive needs: No Hearing needs: No Vision needs: Yes Meds Allergies Allergy/AdvReac Type Severity Reaction Status Date / Time No Known Allergies Allergy Mild NOT Verified 12/11/23 08:23 APPLICABLE Home Medications Medication Instructions Recorded Confirmed Last Taken Type ascorbic acid (vitamin C) 100 mg 100 mg PO DAILY 08/08/22 01/07/24 10/17/23 History tablet (Vitamin C) cholecalciferol (vitamin D3) 125 125 mcg PO DAILY 08/08/22 01/07/24 10/17/23 History mcg (5,000 unit) tablet (Vitamin D3) multivitamin 1 tab PO DAILY 08/08/22 01/07/24 10/17/23 History calcium carbonate 600 mg calcium 600 mg PO DAILY 10/18/23 01/07/24 10/17/23 History (1,500 mg) tablet (Calcium) cetirizine 10 mg tablet 10 mg PO DAILY 10/18/23 01/07/24 10/17/23 History azelastine 137 mcg-fluticasone 50 1 spray intranasal BID 10/27/23 01/07/24 Unknown History mcg/spray nasal spray Exam Height,Weight and Vital Signs: Height 5 ft 11 in Weight 108.862 kg Pertinent Lab Results Pertinent Lab Results: Laboratory Tests 12/09/23 15:04 WBC 8.6 Hgb 14.7 Hct 43.0 Plt Count 311 Sodium 136 Potassium 4.0 Chloride 106 Carbon Dioxide 23 BUN 17 H Creatinine 0.86 Narrative Narrative: EKG 10/2023 SB @ 54 ?LVH ? old anterior infarct Assessment and Plan Assessment Anesthesia Assessment: Chart Reviewed Final Anesthetic Review Family History of Problems with Anesthesia: No History of Problems with Anesthesia: No Documented by User: Mirna Hardin MD 01/09/24 07:23 [facility] Past Medical History Medical History (Updated 01/07/24 @ 09:22 by Abril Styles RN) Angina at rest Elevated cholesterol Sleep apnea Hemorrhoids that prolapse with straining and require manual replacement back inside anal canal Hemorrhoids with complication Family History Family History Father Substance use disorder Mother CAD (coronary artery disease), Onset Age: 60 Brother Hodgkin disease Surgical History Surgical History Hx of umbilical hernia repair Hx of wisdom tooth extraction Hx of knee surgery Hx of colonoscopy Social History Social History Household Members: Spouse 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:: , 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: House Do you presently have visiting nurse or other home services: No Alcohol intake: current Alcohol intake frequency: holidays/special occasions only Patient Tobacco Use Status: Former Tobacco user Quit Date: 35 years Tobacco use type: Cigarette e-Cigarette/Vaping Use: Never Used Second Hand Smoke Exposure: No Use of substances other than those prescribed or required for medical reasons: No Are you DNR?: No Advance Directives: No Advance Directives Information Provided: Yes service: Yes Current occupational status: employed Current occupation: [employer] Current occupational exposures/hazards: Yes Cognitive needs: No Hearing needs: No Vision needs: Yes Meds Allergies Allergy/AdvReac Type Severity Reaction Status Date / Time No Known Allergies Allergy Mild NOT Verified 12/11/23 08:23 APPLICABLE Home Medications Medication Instructions Recorded Confirmed Last Taken Type ascorbic acid (vitamin C) 100 mg 100 mg PO DAILY 08/08/22 01/07/24 10/17/23 History tablet (Vitamin C) cholecalciferol (vitamin D3) 125 125 mcg PO DAILY 08/08/22 01/07/24 10/17/23 History mcg (5,000 unit) tablet (Vitamin D3) multivitamin 1 tab PO DAILY 08/08/22 01/07/24 10/17/23 History calcium carbonate 600 mg calcium 600 mg PO DAILY 10/18/23 01/07/24 10/17/23 History (1,500 mg) tablet (Calcium) cetirizine 10 mg tablet 10 mg PO DAILY 10/18/23 01/07/24 10/17/23 History azelastine 137 mcg-fluticasone 50 1 spray intranasal BID 10/27/23 01/07/24 Unknown History mcg/spray nasal spray Exam Airway Mallampati Class: III TM Dist: >3cm Neck ROM: Full Assessment and Plan Assessment Anesthesia Assessment: Anesthesia Plan Discussed Final Anesthetic Review NPO: Yes ASA Class: III Final Preanesthetic Review: No Changes in Pt Med Stat, Meds/Allgs Chart Reviewed, Consent Obtained/Reviewed and Anes Risks/Benef Reviewed Patient Risk: Intermediate Procedure Risk: Low Anesthetic Plan Anesthetic Plan: GA Disposition: Standard PACU
[2024-01-09 06:24] VITALS: BMI 33.2
[2024-01-09 06:26] VITALS: BP 145/78; PULSE 56; RESP 18; TEMP 36.4; O2SAT 98
[2024-01-09] MEDS: Lactated Ringers 1,000 ML 100 ML IVCONT (06:38)
--- NOTE | 2024-01-09 07:34 | MHC.SHP ---
Pre-Procedural Eval Section A - 24 Hr Update-Section A only Date of Service: 01/09/24 The patient is an INPATIENT: No Changes since office visit: No Cold of Flu in the past 2 weeks, No New Medical Problems, No Changes in Medication and No Patient answered all questions The patient has been examined within 24 hours of the surgical procedure. The History & Physical has been completed within 30 days and I have reviewed it.: Yes Section B - Complete if H&P > 30 days Chief Complaint: Third degree hemorrhoids Allergies: Allergies Allergy/AdvReac Type Severity Reaction Status Date / Time No Known Allergies Allergy Mild NOT Verified 12/11/23 08:23 APPLICABLE Plan I have reviewed the history and physical and performed a pertinent physical examination on my patient. No changes have occurred unless specified. Time Spent With Patient Time: Total time managing care of this patient today ____ minutes.
--- NOTE | 2024-01-09 08:12 | W.PM.OPN ---
Operative Note Operative Note Date of Service: 01/09/24 Narrative: Preop diagnoses: Prolapsing hemorrhoids Postop diagnosis: Prolapsing hemorrhoids, internal and external components Procedure: Exam under anesthesia, hemorrhoidectomy x2 columns Surgeon: Asael Claros MD That patient is a 63-year-old male with a long history of prolapsing hemorrhoids. He wanted to proceed with hemorrhoidectomy. He understood the planned procedure as well as the risks, benefits, and alternatives. He was brought to the operating room. He was placed in prone bianca-knife position. The buttocks were retracted with a wide deep laterally. He was placed under general anesthesia via endotracheal tube B Examination of the anal orifice revealed a large hemorrhoid column, mostly external on the left. A smaller external hemorrhoid column was seen on the left I infiltrated the perianal area with lidocaine 1%. I inserted the Bright Meredith retractor into the anal canal and examined the anal canal circumferentially. These hemorrhoidal columns described above were a mixup internal and external. There were no other lesions. I applied a Gifford grasper on the hemorrhoidal column on the left to retract this. I made a hspxda-un-kjgwn stitch at the pedicle past the dentate line with a chromic 3-0 bed I made an incision around this hemorrhoidal column to the perianal skin with a blade 15. I incised through hemorrhoid column above the main of the sphincter using scissors. I closed the incision with a running chromic stitch. Additional hemostatic sdylsx-tv-yosei sutures were placed. I then proceeded due apply a Gifford grasper on the hemorrhoid column on the right. I made a figure of 8 stitch at the pedicle as well. I made an incision around the hemorrhoidal column to the perianal skin with a blade 15. I incised the hemorrhoid column above the plane of the sphincters along this incision with scissors. I closed the incision with a running chromic 3-0 stitch. Additional hemostatic sutures with figure-eight chromic 3-0 sutures were placed for oozing areas. Once hemostasis was confirmed, I positioned a Gelfoam into the anal canal for additional hemostasis. I infiltrated the perianal area with Marcaine 0.5% for postop analgesia. The procedures and completed. The patient tolerated the procedure well. There were no immediate complications. Initial and final counts of sponges and instruments were correct. Estimated blood loss was about 30 cc. The patient was extubated without difficulty and transferred to the recovery room with stable vital signs.
[2024-01-09 08:25] VITALS: BP 114/69; PULSE 60; RESP 12; TEMP 36.1; O2SAT 96
[2024-01-09 08:30] VITALS: BP 116/70; PULSE 57; RESP 13; O2SAT 97
[2024-01-09 08:35] VITALS: BP 111/64; PULSE 54; RESP 11; O2SAT 94
[2024-01-09 08:43] VITALS: BP 107/58; PULSE 53; RESP 13; O2SAT 94
[2024-01-09 08:58] VITALS: BP 116/62; PULSE 50; RESP 13; TEMP 36.1; O2SAT 95
== END 2024-01-09 09:40 | disposition home or self-care (01) ==
PROVIDERS: PCP Internal Medicine; Visit Provider Surgery
PROC: (CPT 46260; principal; 2024-01-09 07:30)
PROC: (CPT 46260; 2024-01-09 07:30)
DX: K64.2 Third degree hemorrhoids (principal); K64.4 Residual hemorrhoidal skin tags; E78.5 Hyperlipidemia, unspecified; I20.9 Angina pectoris, unspecified; G47.30 Sleep apnea, unspecified; Z79.899 Other long term (current) drug therapy; Z98.890 Other specified postprocedural states; Z87.891 Personal history of nicotine dependence
CPT/HCPCS: 46260; 88304; J1100; J2250; J2405; J2704; J2795; J3010

== ENCOUNTER → 2024-01-09 06:08 | Outpatient (BNV) | payer OTHER, SELFPAY | PROVIDERS: PCP Internal Medicine; Visit Provider Surgery | DX: K64.2 Third degree hemorrhoids (principal) | CPT/HCPCS: 46260 ==

== ENCOUNTER 2024-01-22 08:52 | Outpatient (AMB) | payer OTHER, SELFPAY ==
--- NOTE | 2024-01-22 08:54 | A.OFFVIS_ITS ---
Intake Intake Visit Reasons: S/P hemorrhoidectomy Intake Note: This patient presents for a post-op s/p hemorrhoidectomy. Patient c/o; reports rectal bleeding with bowel movements, reports this morning had a complete bm, reports pain, reports unable to sit. Social Media Strategist Required: No Accompanied by: Spouse Allergies No Known Allergies Allergy (Mild, Verified 01/22/24 09:02) NOT APPLICABLE HPI S/P hemorrhoidectomy HPI Details He underwent hemorrhoidectomy x2 columns last 01/09/2024. He tolerated the procedure well. He says that he had been doing well but had a bowel movement this morning which caused pain again. He denies being constipated. 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 Do you presently have visiting nurse or other home services: No Alcohol intake: current Alcohol intake frequency: holidays/special occasions only Comment: counts correct Patient Tobacco Use Status: Former Tobacco user Quit Date: 35 years Tobacco use type: Cigarette e-Cigarette/Vaping Use: Never Used Second Hand Smoke Exposure: No service: Yes Current occupational status: employed Current occupation: [employer] Current occupational exposures/hazards: Yes Cognitive needs: No Hearing needs: No Vision needs: Yes Review of Systems Const Denies chills and Denies fever(s) Card Denies chest pain, Denies dyspnea and Denies dyspnea on exertion Resp Denies cough, Denies dyspnea and Denies dyspnea on exertion GI Reports hematochezia and Denies change in bowel habits Denies hematuria and Denies difficulty urinating Musc Denies back pain and Denies limited range of motion Neuro Denies focal weakness and Denies convulsions Psych Denies depression and Denies mood swings Physical Exam Const General: comfortable and no acute distress Resp Effort & Inspection: normal respiratory effort GI Other: Rectal exam shows the hemorrhoidectomy sites to be healing well although with some skin separation on the left; there was no induration or any drainage or fluctuance Assessment & Plan Assessment & Plan (1) Hemorrhoids: Comment: High-fiber diet, avoid straining surgical referral, hemorrhoidal cream Code(s): K64.9 - Unspecified hemorrhoids Plan: Status post hemorrhoidectomy. His incisions are healing well. There is some skin separation on the left side. I told him to continue doing hot Sitz baths. I will see him again in about 2-3 weeks for another wound check. He asked for a refill for his ibuprofen. Coding Level of Care Code Global (63484) Diagnoses Hemorrhoids K64.9
== END 2024-01-22 09:23 | disposition home or self-care (01) ==
PROVIDERS: PCP Internal Medicine; Visit Provider Surgery
DX: K64.9 Unspecified hemorrhoids (principal)
CPT/HCPCS: 99024

== ENCOUNTER → 2024-01-22 08:52 | Outpatient (BNVA) | payer OTHER, SELFPAY | PROVIDERS: PCP Internal Medicine; Visit Provider Surgery ==

== ENCOUNTER 2024-02-11 09:02 | Outpatient (AMB) | payer OTHER, SELFPAY ==
--- NOTE | 2024-02-11 09:07 | MHC.OFFVIS ---
Intake Visit Reasons: S/P hemorrhoidectomy Intake Note: This patient presents for a post-op status post hemorrhoidectomy. Pt c/o; reports no complaints. Donor Support Technician Required: No Accompanied by: Other Relationship Allergies No Known Allergies Allergy (Mild, Verified 02/11/24 09:10) NOT APPLICABLE HPI HPI S/P hemorrhoidectomy: Details: He is here for follow-up after hemorrhoidectomy last January 09, 2024. He says that he has irregular bowel movements. It appears that this has been irritating his hemorrhoidectomy site. He describes a bit of drainage and blood with his surgical sites He states that he supposed to have a follow-up with a maintenance electrician service because of his GI issues but he has not been able to do this. He describes occasional pain but does not take any narcotic anymore. 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: House Do you presently have visiting nurse or other home services: No Alcohol intake: current Alcohol intake frequency: holidays/special occasions only Comment: counts correct Patient Tobacco Use Status: Former Tobacco user Quit Date: 35 years Tobacco use type: Cigarette e-Cigarette/Vaping Use: Never Used Second Hand Smoke Exposure: No service: Yes Current occupational status: employed Current occupation: [employer] Current occupational exposures/hazards: Yes Cognitive needs: No Hearing needs: No Vision needs: Yes Review of Systems Const Denies chills and Denies fever(s) Card Denies chest pain GI Denies abdominal pain Physical Exam Const General: comfortable and no acute distress Resp Effort & Inspection: normal respiratory effort GI Other: Rectal exam shows the hemorrhoidectomy sites to be healing, no fluctuance, no induration, still with a little bit of skin separation better than last month Assessment & Plan Assessment & Plan (1) Hemorrhoids: Comment: High-fiber diet, avoid straining surgical referral, hemorrhoidal cream Code(s): K64.9 - Unspecified hemorrhoids Category: Medical Plan: Status post hemorrhoidectomy x2 columns. His hemorrhoidectomy sites continue to heal although with still some skin separation. I have instructed him on good wound care with frequent warm soaks and keeping the area clean and dry I will assist him with having a follow-up with maintenance electrician as he has had GI issues with the regular bowel movements and diarrhea. I will see him again for another wound check in about a month. Coding Level of Care Code Global (43052) Diagnoses Hemorrhoids K64.9
== END 2024-02-11 09:31 | disposition home or self-care (01) ==
PROVIDERS: PCP Internal Medicine; Visit Provider Surgery
DX: K64.9 Unspecified hemorrhoids (principal)
CPT/HCPCS: 99024

== ENCOUNTER → 2024-02-11 09:02 | Outpatient (BNVA) | payer OTHER, SELFPAY | PROVIDERS: PCP Internal Medicine; Visit Provider Surgery ==

== ENCOUNTER 2024-03-01 10:41 | Outpatient (AMB) | payer OTHER, SELFPAY ==
--- NOTE | 2024-03-01 10:45 | MHC.OFFVIS ---
Vital Signs 03/01/24 10:50 Height 5 ft 11 in Weight 230 lb BMI 32.1 BP 138/75 Blood Pressure Location Lt brachial Position Sitting Pulse 54 Intake Visit Reasons: follow up Intake Note: Patient follow up from ED due hemorrhoids Patient cc: hemorrhoids, hard stool, denies any other GI issues. 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 Claros in January of this year post hemorrhoidectomy doing well He presents today- don't feel that great- normal BM - feeling like have to go to the bathroom, it is inconsistent This morning no blood-3 full wseyom-kjomy-fu diarrhea- spends his day sitting at a computer- uses a donut-however after sitting too long gets discomfort has to get up and walk around Saw Dr. Claros in January- hemrrhoidectomy post op- incision opened- he packed at home- up until the other day- bleeding has improved-know what he is no longer packing he feels more discomfort. Diet- eats fiber- stool softener-appetite excellent Beans most days- He says he gets rectal discomfort- worse rectal disconmfort when up walking around- no abdominal pain In September- was away on vacation- had diarrhea- was admitted for 1 day- with acute colitis- txd with anti bx-sx resolved- He currently has no nausea, vomiting, abdominal pain, hematemesis fever or chills [facility] Medical History Angina at rest Elevated cholesterol Sleep apnea Hemorrhoids that prolapse with straining and require manual replacement back inside anal canal Hemorrhoids with complication Surgical History History of hemorrhoidectomy (~01/09/24) Hx of umbilical hernia repair Hx of wisdom tooth extraction Hx of knee surgery Hx of colonoscopy Family History Father Substance use disorder Mother CAD (coronary artery disease), Onset Age: 60 Brother Hodgkin disease Social History Household Members: Spouse 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:: , 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 Do you presently have visiting nurse or other home services: No Alcohol intake: current Alcohol intake frequency: holidays/special occasions only Comment: counts correct Patient Tobacco Use Status: Former Tobacco user Quit Date: 35 years Tobacco use type: Cigarette e-Cigarette/Vaping Use: Never Used Second Hand Smoke Exposure: No service: Yes Current occupational status: employed Current occupation: [employer] Current occupational exposures/hazards: Yes Cognitive needs: No Hearing needs: No Vision needs: Yes Review of Systems Const All systems reviewed & are unremarkable except as noted in HPI and below Card Denies chest pain and Denies dyspnea Resp Denies dyspnea GI Denies abdominal pain, Denies heartburn, Denies nausea and Denies vomiting Physical Exam Vital Signs: Last Vital Signs Pulse 54 03/01/24 10:50 BP 138/75 03/01/24 10:50 BMI result Body Mass Index 32.1 Const General: cooperative, healthy appearing, comfortable, no acute distress and well developed Orientation/consciousness: patient oriented x3 Limitations: no limitations Eyes Sclerae: sclerae normal Neuro General: patient oriented x3 Extrem General: Yes full ROM Psych Appearance: grossly normal Mental Status: mental status grossly normal Speech and movement: Clear speech present Affect: Labile affect present Attitude: cooperative Thought process: Normal thought process present Thought content: Normal thought content present Results Reviewed Results Reviewed: 10/10/22 Kendrick Impression: 1. Normal colon mucosa 2. Diverticulosis 3. External and internal hemorrhoids Recommendations: - Repeat colonoscopy in 10 years for CRC screening. 01/22/2024- Dr. Claros Plan: Status post hemorrhoidectomy. His incisions are healing well. There is some skin separation on the left side. I told him to continue doing hot Sitz baths. I will see him again in about 2-3 weeks for another wound check. He asked for a refill for his ibuprofen. Assessment & Plan Assessment & Plan (1) Hemorrhoids: Comment: s/p hemorrhoidectomy Code(s): K64.9 - Unspecified hemorrhoids Category: Medical Plan: see Dr. Claros (2) Recent change in frequency of bowel movements: Comment: inconsistent- stools formed-c/o rectal discomfort Code(s): R19.4 - Change in bowel habit Category: Medical Plan: food diary Plan Try to see Dr. Harlan guzman Patient Instructions: Try to see Dr. Harlan guzman-, taken over to Surgical Department appointment was given to patient He is agreed to call with progress Encouraged to call with any questions or concerns Coding Level of Care Code Est Pt Level 3 (55719) Diagnoses Hemorrhoids K64.9 Recent change in frequency of bowel movements R19.4 Time Spent (min) 30
[2024-03-01 10:50] VITALS: BP 138/75; PULSE 54; BMI 32.1
== END 2024-03-01 11:41 | disposition home or self-care (01) ==
PROVIDERS: PCP Internal Medicine; Referring Provider Internal Medicine; Visit Provider Physician Assistant
DX: K64.9 Unspecified hemorrhoids (principal); R19.4 Change in bowel habit
CPT/HCPCS: 99213

== ENCOUNTER → 2024-03-01 10:41 | Outpatient (BNVA) | payer OTHER, SELFPAY | PROVIDERS: PCP Internal Medicine; Visit Provider Physician Assistant ==

== ENCOUNTER 2024-03-08 10:51 | Outpatient (AMB) | payer OTHER, SELFPAY ==
--- NOTE | 2024-03-08 11:04 | MHC.OFFVIS ---
Vital Signs 03/08/24 11:17 Height 5 ft 11 in Weight 241 lb BMI 33.6 Intake Visit Reasons: f/u hemorrhoidectomy Intake Note: Patient is seen in office for follow up visit, post hemorrhoidectomy. Pt c/o: reports is feeling much better. Reports passes blood clot occasionally after bowel movements, reports when passed a blood clot about two weeks ago he took an iron pill and felt a little better. 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 He has some skin separation on the incisions when I saw him last month . He says he feels much better. He says that the surgical site seems to have healed already. He denies any bleeding and his pain has improved significantly. 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 Do you presently have visiting nurse or other home services: No Alcohol intake: current Alcohol intake frequency: holidays/special occasions only Comment: counts correct Patient Tobacco Use Status: Former Tobacco user Quit Date: 35 years Tobacco use type: Cigarette e-Cigarette/Vaping Use: Never Used Second Hand Smoke Exposure: No service: Yes Current occupational status: employed Current occupation: [employer] Current occupational exposures/hazards: Yes Cognitive needs: No Hearing needs: No Vision needs: Yes Review of Systems Const Denies chills and Denies fever(s) Resp Denies cough Denies difficulty urinating Physical Exam Vital Signs: BMI result Body Mass Index 33.6 Const General: comfortable and no acute distress Resp Effort & Inspection: normal respiratory effort GI Other: Hemorrhoidectomy sites are now well healed, no signs of infection Assessment & Plan Assessment & Plan (1) Hemorrhoids: Comment: s/p hemorrhoidectomy Code(s): K64.9 - Unspecified hemorrhoids Category: Medical Plan: Status post hemorrhoidectomy. His incisions are now well healed He had been seen by GI for his chronic issues. He is being sent for a colonoscopy and I told him that he should be able to do this now as his hemorrhoidectomy sites are well healed. He can follow up with me on a p.r.n. basis. Coding Level of Care Code Global (73496) Diagnoses Hemorrhoids K64.9
[2024-03-08 11:17] VITALS: BMI 33.6
== END 2024-03-08 11:37 | disposition home or self-care (01) ==
PROVIDERS: PCP Internal Medicine; Visit Provider Surgery
DX: K64.9 Unspecified hemorrhoids (principal)
CPT/HCPCS: 99024

== ENCOUNTER → 2024-03-08 10:51 | Outpatient (BNVA) | payer OTHER, SELFPAY | PROVIDERS: PCP Internal Medicine; Visit Provider Surgery ==

== ENCOUNTER 2024-03-23 09:47 | Outpatient (AMB) | payer OTHER, SELFPAY ==
--- NOTE | 2024-03-23 09:52 | MHC.OFFVIS ---
Vital Signs 03/23/24 09:57 Height 5 ft 11 in Weight 235 lb BMI 32.8 BP 134/69 Blood Pressure Location Lt brachial Position Sitting Pulse 52 Intake Visit Reasons: Follow Up after seeing Dr. Claros Intake Note: Patient follow up for hemorrhoids after surgery. Patient cc: occasional rectal bleeding, denies any other GI issues. 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 Rachel STEVENSON-repeat 10 years. He says he feels hes making progress- some days after BM he feels like he has to go again He has started to decrease the metamucil- thinking that may be associated He says he ws obsessed with what hewas eating- how often he had to go etc- [facility] Medical History Angina at rest Elevated cholesterol Sleep apnea Hemorrhoids that prolapse with straining and require manual replacement back inside anal canal Hemorrhoids with complication Surgical History History of hemorrhoidectomy (~01/09/24) Hx of umbilical hernia repair Hx of wisdom tooth extraction Hx of knee surgery Hx of colonoscopy Family History Father Substance use disorder Mother CAD (coronary artery disease), Onset Age: 60 Brother Hodgkin disease Social History Household Members: Spouse 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:: , 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 Housing: House Do you presently have visiting nurse or other home services: No Alcohol intake: current Alcohol intake frequency: holidays/special occasions only Comment: counts correct Patient Tobacco Use Status: Former Tobacco user Tobacco use type: Cigarette e-Cigarette/Vaping Use: Never Used Second Hand Smoke Exposure: No service: Yes Current occupational status: employed 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 Current occupational exposures/hazards: Yes Cognitive needs: No Hearing needs: No Vision needs: Yes Physical Exam Vital Signs: Last Vital Signs Pulse 52 03/23/24 09:57 BP 134/69 03/23/24 09:57 BMI result Body Mass Index 32.8 Const General: cooperative, healthy appearing, comfortable, no acute distress and anxious Orientation/consciousness: patient oriented x3 Limitations: no limitations Neuro General: patient oriented x3 Psych Appearance: grossly normal and well kempt Mental Status: mental status grossly normal Speech and movement: Normal speech and movement present Affect: Anxious affect present Attitude: cooperative Thought process: Normal thought process present Results Reviewed Results Reviewed: 09/2022 Impression: 1. Normal colon mucosa 2. Diverticulosis 3. External and internal hemorrhoids Recommendations: - Repeat colonoscopy in 10 years for CRC screening. Assessment & Plan Assessment & Plan (1) Hemorrhoids: Comment: -s/p hemorrhoidectomy-followed up with Dr. Elliott Code(s): K64.9 - Unspecified hemorrhoids Category: Medical Plan: Continue plan of care Avoid straining Maintain high-fiber diet Plan Avoid straining Maintain high-fiber diet Medications: New methylcellulose (laxative) (Citrucel) 500 mg PO BID 60 tabs 5RF Patient Instructions: He will try citrucel and hold back metamucil Avoid straining Follow-up with Dr. Claros as need for any further hemorrhoidal issues He will call with progress any concerns Coding Level of Care Code Est Pt Level 3 (43204) Diagnoses Hemorrhoids K64.9 Time Spent (min) 30
[2024-03-23 09:57] VITALS: BP 134/69; PULSE 52; BMI 32.8
== END 2024-03-23 11:13 | disposition home or self-care (01) ==
PROVIDERS: PCP Internal Medicine; Referring Provider Internal Medicine; Visit Provider Physician Assistant
DX: K64.9 Unspecified hemorrhoids (principal)
CPT/HCPCS: 99213

== ENCOUNTER → 2024-03-23 09:47 | Outpatient (BNVA) | payer OTHER, SELFPAY | PROVIDERS: PCP Internal Medicine; Visit Provider Physician Assistant ==

== ENCOUNTER 2024-04-27 12:49 | Outpatient (AMB) | payer OTHER, SELFPAY ==
--- NOTE | 2024-04-27 13:15 | MHC.PC.OV ---
Vital Signs 04/27/24 13:23 Height 5 ft 11 in Weight 239 lb BMI 33.3 BP 134/84 Blood Pressure Location Lt brachial Position Sitting Pulse 71 Pulse Source Pulse Oximeter Pulse Oximetry (%) 96 Oxygen Delivery Method Room Air Intake Visit Reasons: Follow up after surgery has questions Allergies No Known Allergies Allergy (Mild, Verified 04/27/24 13:35) NOT APPLICABLE Tobacco use date assessed: 04/27/24 Dental Screening Dental Screen Date: 10/27/23 HPI Follow up after surgery has questions HPI Details Patient presents for the follow-up of hemorrhoidectomy on January [address] Claros. Patient reports persistent rectal pain intermittent bleeding not related to diet. He has been taking stool softeners and fiber and has regular soft formed bowel movements. Patient reports intermittent worsening of the rectal pain after bowel movements lasting for few hours. He has been using Aquaphor tucks wipes and trying to keep the area dry and clean but reports persistent stool seepage. Patient denies abdominal pain fever chills or purulent discharge [facility] Medical History (Updated 04/27/24 @ 15:52 by Katy Chambers MD) Angina at rest Elevated cholesterol Sleep apnea Hemorrhoids that prolapse with straining and require manual replacement back inside anal canal Hemorrhoids with complication Surgical History History of hemorrhoidectomy (~01/09/24) Hx of umbilical hernia repair Hx of wisdom tooth extraction Hx of knee surgery Hx of colonoscopy Family History Father Substance use disorder Mother CAD (coronary artery disease), Onset Age: 60 Brother Hodgkin disease Social History Household Members: Spouse 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:: , 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: House Do you presently have visiting nurse or other home services: No Alcohol intake: current Alcohol intake frequency: holidays/special occasions only Comment: counts correct Patient Tobacco Use Status: Former Tobacco user Tobacco use type: Cigarette e-Cigarette/Vaping Use: Never Used Second Hand Smoke Exposure: No service: Yes Current occupational status: employed Current occupation: [employer] Current occupational exposures/hazards: Yes Cognitive needs: No Hearing needs: No Vision needs: Yes Questionnaire Thrive Questionnaire Date Thrive assessed: 10/27/23 JETHRO-7 AMB Questionnaire JETHRO-7 Date JETHRO - 7 assessed: 10/27/23 Source: Developed by Drs. Arthur Espino, Hannah Khan, Uday Weber and colleagues, with an educational aleshia from [employer]. Review of Systems Const All systems reviewed & are unremarkable except as noted in HPI and below Eyes Reports no additional complaints ENT Reports no additional complaints Card Reports no additional complaints Resp Reports no additional complaints GI Reports no additional complaints Reports no additional complaints Physical exam (Primary Care) Vital Signs: Last Vital Signs Pulse 71 04/27/24 13:23 BP 134/84 04/27/24 13:23 Pulse Ox 96 04/27/24 13:23 Oxygen Delivery Method Room Air 04/27/24 13:23 BMI result Body Mass Index 33.3 Tobacco/Smoking Status: Tobacco use Status Tobacco use date assessed 04/27/24 04/27/24 13:39 Patient Tobacco Use Status Former Tobacco user 04/27/24 13:15 Tobacco use type Cigarette 04/27/24 13:15 e-Cigarette/Vaping Use Never Used 04/27/24 13:15 Thrive Assessment: Date of Thrive Assessment Date Thrive assessed 10/27/23 04/27/24 13:15 Const General: no acute distress Eyes General: appearance normal, both eyes and all related structures Resp Effort & Inspection: normal respiratory effort Auscultation: clear to auscultation bilaterally Cardio Rhythm: regular rhythm Heart sounds: S1 normal heart sound present and S2 normal heart sound present GI Inspection: Yes normal to inspection Palpation (GI): Soft to palpation Percussion: Yes normal to percussion Auscultation: normal bowel sounds Rectal Exam - Male: Yes decreased sphincter tone (Healed incisions with a granulation tissue on the right side, no discharge,) and Yes tenderness (No erythema) Assessment and Plan Assessment & Plan (1) Hemorrhoids: Comment: -s/p hemorrhoidectomy 01/09/24-followed up with Dr. Claros Code(s): K64.9 - Unspecified hemorrhoids Plan: Patient was advised to continue stool softener and fiber supplement ,avoid spicy or acidic foods, follow-up with the surgeon. He was advised to keep the area dry and clean, using tucks wipes and occasionally [id number] lidocaine gel for severe pain. Coding Level of Care Code Est Pt Level 3 (28091) Diagnoses Hemorrhoids K64.9
[2024-04-27 13:23] VITALS: BP 134/84; PULSE 71; O2SAT 96; BMI 33.3
== END 2024-04-27 15:45 | disposition home or self-care (01) ==
PROVIDERS: PCP Internal Medicine; Visit Provider Internal Medicine
DX: K64.9 Unspecified hemorrhoids (principal)
CPT/HCPCS: 99213

== ENCOUNTER 2024-05-05 14:13 | Outpatient (AMB) | payer OTHER, SELFPAY ==
--- NOTE | 2024-05-05 14:39 | A.OFFVIS_ITS ---
Vital Signs 05/05/24 15:06 Height 5 ft 11 in Weight 239 lb 0.015 oz BMI 33.3 Intake Visit Reasons: Recurrent irritation post hemorrhoidectomy Intake Note: This patient presents for an assessment for Recurrent irritation post hemorrhoidectomy. Patient c/o; report discomfort and irritation, reports has been having rectal bleeding since 04/23/2024. Office Rn Required: No Accompanied by: Self / Same As Patient Allergies No Known Allergies Allergy (Mild, Verified 05/05/24 15:07) NOT APPLICABLE HPI HPI Recurrent irritation post hemorrhoidectomy: Details: He had undergone hemorrhoidectomy for large hemorrhoids last December,. He is that he still occasionally feels ?irritation? around his anus especially after bowel movements. This does not happen every day He occasionally sees small amounts of blood as well on wiping. He denies being constipated. He does not really say that he has ?pain?. 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: House Do you presently have visiting nurse or other home services: No Alcohol intake: current Alcohol intake frequency: holidays/special occasions only Comment: counts correct Patient Tobacco Use Status: Former Tobacco user Tobacco use type: Cigarette e-Cigarette/Vaping Use: Never Used Second Hand Smoke Exposure: No service: Yes Current occupational status: employed Current occupation: [employer] Current occupational exposures/hazards: Yes Cognitive needs: No Hearing needs: No Vision needs: Yes Review of Systems Const Denies chills and Denies fever(s) Card Denies chest pain Resp Denies cough GI Denies abdominal pain Physical Exam Const General: comfortable and no acute distress Resp Effort & Inspection: normal respiratory effort Cardio Rate: regular rate GI Other: Rectal exam shows the hemorrhoidectomy sites on both sides to be generally well healed. However on the perianal skin edge of both incisions, there was note of small residual skin separation, no induration, no obvious pus, no cellulitis Assessment & Plan Assessment & Plan (1) Hemorrhoids: Comment: -s/p hemorrhoidectomy 01/09/24-followed up with Dr. Claros Code(s): K64.9 - Unspecified hemorrhoids Category: Medical Plan: He has occasional pain on the hemorrhoidectomy sites. Examination showed that on the perianal skin, there is still some skin separation with hypergranulation tissue. I told him that this will require good wound care with hygiene and warm soaks. At this time, it does not really describe pain but more of an annoying irritation on the area with bowel movements I instructed him on good wound care with frequent warm soaks. I told him that I will need to see him again in the office in about 6 weeks to see how this is coming along. Coding Level of Care Code Est Pt Level 2 (56435) Diagnoses Hemorrhoids K64.9
[2024-05-05 15:06] VITALS: BMI 33.3
== END 2024-05-05 15:18 | disposition home or self-care (01) ==
PROVIDERS: PCP Internal Medicine; Visit Provider Surgery
DX: K64.9 Unspecified hemorrhoids (principal)
CPT/HCPCS: 99213

== ENCOUNTER → 2024-05-05 14:13 | Outpatient (BNVA) | payer OTHER, SELFPAY | PROVIDERS: PCP Internal Medicine; Visit Provider Surgery ==

== ENCOUNTER 2024-06-07 09:24 | Outpatient (REF) | payer OTHER, SELFPAY ==
--- NOTE | 2024-06-07 09:53 | MHC.AUDCO ---
Gilmer was scheduled for hearing evaluation. He brought with him a recent test from [facility] and a medical clearance form that he was hoping to have signed today. Reviewed his audiogram and advised that [facility] would be looking for him to get medical clearance from an ear nose and throat doctor due to sensorineural asymmetry. Gilmer was under the impression Dr. Qiu was here and would be able to sign for him. Did not continue with evaluation today, Gilmer will seek appointment with ENT.
== END 2024-06-07 09:25 | disposition home or self-care (01) ==
LOC: HO.SH 09:24
PROVIDERS: Visit Provider Internal Medicine
DX: Z13.89 Encounter for screening for other disorder (principal)

== ENCOUNTER 2024-06-14 14:46 | Outpatient (AMB) | payer OTHER, SELFPAY ==
[2024-06-14 15:13] VITALS: BMI 33.3
--- NOTE | 2024-06-14 15:13 | A.OFFVIS_ITS ---
Vital Signs 06/14/24 15:13 Height 5 ft 11 in Weight 239 lb 0.015 oz BMI 33.3 Intake Visit Reasons: 6 wk follow up irritation post hemorrhoidectomy Intake Note: This patient presents for a six week follow-up status post hemorrhoidecomy. Pt c/o; reports no complaints. 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 Accompanied by: Self / Same As Patient Allergies No Known Allergies Allergy (Mild, Verified 06/14/24 15:17) NOT APPLICABLE Medication List - Last Reconciled 06/14/24 by Asael Claros MD ascorbic acid (vitamin C) (Vitamin C) 100 mg PO DAILY azelastine-fluticasone 137-50 mcg/spray 1 spray intranasal BID calcium carbonate (Calcium 600) 600 mg PO DAILY cetirizine 10 mg PO DAILY cholecalciferol (vitamin D3) (Vitamin D3) 125 mcg PO DAILY dicyclomine 10 mg PO BID docusate sodium (Colace) 100 mg PO BID fluticasone propionate 50 mcg/actuation 1 spray intranasal BID hydrocortisone 2.5% (Proctosol HC) 1 appl [place] BEDTIME PRN ibuprofen 600 mg PO Q6H PRN methylcellulose (laxative) (Citrucel) 500 mg PO BID multivitamin 1 tab PO DAILY HPI HPI 6 wk follow up irritation post hemorrhoidectomy: Details: He is here for follow-up for the persistent skin irritation after hemorrhoidectomy last December, He says that he still notices passage some bloody drainage from the hemorrhoidectomy sites periodically. He says that this irritates his perianal area. He says that whenever this happens, he has this urge to have a bowel movement as well Otherwise, his pain level is much better. He is able to sit down comfortably. 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 Do you presently have visiting nurse or other home services: No Alcohol intake: current Alcohol intake frequency: holidays/special occasions only Comment: counts correct Patient Tobacco Use Status: Former Tobacco user Tobacco use type: Cigarette e-Cigarette/Vaping Use: Never Used Second Hand Smoke Exposure: No service: Yes Current occupational status: employed Current occupation: [employer] - [employer] Current occupational exposures/hazards: Yes Cognitive needs: No Hearing needs: No Vision needs: Yes Review of Systems Const Denies chills and Denies fever(s) Card Denies chest pain, Denies dyspnea and Denies dyspnea on exertion Resp Denies cough, Denies dyspnea and Denies dyspnea on exertion GI Details: Has some bloody discharge periodically from the perianal area Denies hematochezia and Denies change in bowel habits Denies hematuria and Denies difficulty urinating Musc Denies back pain and Denies limited range of motion Neuro Denies focal weakness and Denies convulsions Psych Denies depression and Denies mood swings Physical Exam Vital Signs: BMI result Body Mass Index 33.3 Const Other: Sitting down comfortably General: comfortable and no acute distress Resp Effort & Inspection: normal respiratory effort Cardio Rate: regular rate GI Other: Rectal exam shows the hemorrhoidectomy sites to be mostly healed but on the perianal skin at the periphery of the hemorrhoidectomy sites on both sides is note of some hypergranulation tissue he had some scanty bloody discharge, no obvious fistula, no infection Assessment & Plan Assessment & Plan (1) Hemorrhoids: Comment: -s/p hemorrhoidectomy 01/09/24-followed up with Dr. Claros Code(s): K64.9 - Unspecified hemorrhoids Category: Medical Plan: He had undergone hemorrhoidectomy for very large hemorrhoids last December,. He continues to see some blood from the hemorrhoidectomy sites. Examination shows that the hips are actually mostly well healed but the periphery has hypergranulation tissue on both the left and the right side. It appears that th e skin may healing over the hemorrhoidectomy site causing some accumulation of blood from underneath. I told him therefore to massage the areas on both the left and right side to encourage drainage of fluid from underneath the skin. He is to do this 2 to 3 times a day. He is to continue doing hot soaks to the area. Most of the hemorrhoidectomy sites are now well healed. I will however see him again in the office in about 2 months for another wound check. Coding Level of Care Code Est Pt Level 2 (99071) Diagnoses Hemorrhoids K64.9
== END 2024-06-14 15:28 | disposition home or self-care (01) ==
PROVIDERS: PCP Internal Medicine; Visit Provider Surgery
DX: K64.9 Unspecified hemorrhoids (principal)
CPT/HCPCS: 99212

== ENCOUNTER → 2024-06-14 14:46 | Outpatient (BNVA) | payer OTHER, SELFPAY | PROVIDERS: PCP Internal Medicine; Visit Provider Surgery ==

== ENCOUNTER 2024-08-18 12:46 | Outpatient (AMB) | payer OTHER, SELFPAY ==
--- NOTE | 2024-08-18 12:49 | A.OFFVIS_ITS ---
Vital Signs 08/18/24 12:55 Height 5 ft 11 in Weight 235 lb BMI 32.8 Intake Visit Reasons: 2 month follow up irritation post hemorrhoidectomy Intake Note: This patient presents for a two month follow-up assessment status post hemorrhoidectomy. Pt c/o; reports no complaints. 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 Accompanied by: Self / Same As Patient Allergies No Known Allergies Allergy (Mild, Verified 08/18/24 12:55) NOT APPLICABLE Medication List - Last Reconciled 08/18/24 by Asael Claros MD ascorbic acid (vitamin C) (Vitamin C) 100 mg PO DAILY azelastine-fluticasone 137-50 mcg/spray 1 spray intranasal BID calcium carbonate (Calcium 600) 600 mg PO DAILY cetirizine 10 mg PO DAILY cholecalciferol (vitamin D3) (Vitamin D3) 125 mcg PO DAILY dicyclomine 10 mg PO BID docusate sodium (Colace) 100 mg PO BID fluticasone propionate 50 mcg/actuation 1 spray intranasal BID hydrocortisone 2.5% (Proctosol HC) 1 appl [place] BEDTIME PRN ibuprofen 600 mg PO Q6H PRN methylcellulose (laxative) (Citrucel) 500 mg PO BID multivitamin 1 tab PO DAILY HPI HPI 2 month follow up irritation post hemorrhoidectomy: Details: He is here for follow-up for his persistent open wound after hemorrhoidectomy he was before He has does state that the discharge has decreased significantly although he still notices this. He denies any pain or tenderness. He feels that is healing better although slowly. 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 Do you presently have visiting nurse or other home services: No Alcohol intake: current Alcohol intake frequency: holidays/special occasions only Comment: counts correct Patient Tobacco Use Status: Former Tobacco user Tobacco use type: Cigarette e-Cigarette/Vaping Use: Never Used Second Hand Smoke Exposure: No service: Yes Current occupational status: employed Current occupation: [employer] Current occupational exposures/hazards: Yes Cognitive needs: No Hearing needs: No Vision needs: Yes Review of Systems Const Denies chills and Denies fever(s) Card Denies chest pain, Denies dyspnea and Denies dyspnea on exertion Resp Denies cough, Denies dyspnea and Denies dyspnea on exertion GI Denies hematochezia and Denies change in bowel habits Denies hematuria and Denies difficulty urinating Musc Denies back pain and Denies limited range of motion Neuro Denies focal weakness and Denies convulsions Psych Denies depression and Denies mood swings Physical Exam Vital Signs: BMI result Body Mass Index 32.8 Const General: comfortable and no acute distress Resp Effort & Inspection: normal respiratory effort Cardio Rate: regular rate GI Other: Rectal exam shows small open wound on the left perianal area on the previous hemorrhoidectomy site, with some scanty drainage and hypergranulation tissue Office Procedures Cauterization - Skin lesions Skin Cauter Details: He was in bianca-knife position. The open wound with hypergranulation tissue in the left perianal area was cauterized using number nitrate sticks. He tolerated procedure well. There were no immediate complications. Destruction: 16821- Chemical Cautery, Granulation Tissue Assessment & Plan Assessment & Plan (1) Hemorrhoids with complication: Code(s): K64.8 - Other hemorrhoids Category: Medical Plan: He has had this persistent wound on the left perianal area after hemorrhoidectomy. There is note of significant hypergranulation tissue. I therefore cauterized this using silver nitrate sticks. I advised him to continue to massage the area daily to promote drainage. Otherwise, he says the drainage is significantly improved. I will see him again in the office in about 2 months. Coding Level of Care Code Est Pt Level 2 (98076) Diagnoses Hemorrhoids with complication K64.8 CPT Codes Skin Cauter - Destruction: 05644- Chemical Cautery, Granulation Tissue ([id number])
[2024-08-18 12:55] VITALS: BMI 32.8
== END 2024-08-18 13:10 | disposition home or self-care (01) ==
LOC: HO.HGS 12:47
PROVIDERS: PCP Internal Medicine; Visit Provider Surgery
DX: K64.8 Other hemorrhoids (principal)
CPT/HCPCS: 17250; 99212

== ENCOUNTER → 2024-08-18 12:46 | Outpatient (BNVA) | payer OTHER, SELFPAY | PROVIDERS: PCP Internal Medicine; Visit Provider Surgery | DX: T81.89XA Other complications of procedures, not elsewhere classified, initial encounter (principal) | CPT/HCPCS: 17250 ==

== ENCOUNTER 2024-10-28 13:52 | Outpatient (AMB) | payer OTHER, SELFPAY ==
[2024-10-28 13:54] VITALS: BMI 34.6
--- NOTE | 2024-10-28 13:54 | A.OFFVIS_ITS ---
Vital Signs 10/28/24 13:54 Height 5 ft 11 in Weight 248 lb BMI 34.6 Intake Visit Reasons: 3 month follow up irritation post hemorrhoidectomy Intake Note: This patient presents for three month follow-up status post Exam under anesthesia, hemorrhoidectomy x2 columns. Pt c/o; reports discomfort. 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 Accompanied by: Self / Same As Patient Allergies No Known Allergies Allergy (Mild, Verified 10/28/24 14:00) NOT APPLICABLE Medication List - Last Reconciled 10/28/24 by Asael Claros MD ascorbic acid (vitamin C) (Vitamin C) 100 mg PO DAILY azelastine-fluticasone 137-50 mcg/spray 1 spray intranasal BID calcium carbonate (Calcium 600) 600 mg PO DAILY cetirizine 10 mg PO DAILY cholecalciferol (vitamin D3) (Vitamin D3) 125 mcg PO DAILY dicyclomine 10 mg PO BID docusate sodium (Colace) 100 mg PO BID fluticasone propionate 50 mcg/actuation 1 spray intranasal BID hydrocortisone 2.5% (Proctosol HC) 1 appl [place] BEDTIME PRN ibuprofen 600 mg PO Q6H PRN methylcellulose (laxative) (Citrucel) 500 mg PO BID multivitamin 1 tab PO DAILY HPI HPI 3 month follow up irritation post hemorrhoidectomy: Details: He is here for follow-up after hemorrhoidectomy last year. He been doing well after I had cauterized an area in the left perianal region However , 2 weeks ago, he noted some clear drainage from the right side. He denies any significant pain. Overall, he says that he is doing well. [facility] Medical History (Updated 10/28/24 @ 14:19 by Asael Claros MD) Hypergranulation Angina at rest Elevated cholesterol Sleep apnea Hemorrhoids that prolapse with straining and require manual replacement back inside anal canal Hemorrhoids with complication Surgical History History of hemorrhoidectomy (~01/09/24) Hx of umbilical hernia repair Hx of wisdom tooth extraction Hx of knee surgery Hx of colonoscopy Family History Father Substance use disorder Mother CAD (coronary artery disease), Onset Age: 60 Brother Hodgkin disease Social History Household Members: Spouse 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:: , 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 Housing: House Do you presently have visiting nurse or other home services: No Alcohol intake: current Alcohol intake frequency: holidays/special occasions only Comment: counts correct Patient Tobacco Use Status: Former Tobacco user Tobacco use type: Cigarette e-Cigarette/Vaping Use: Never Used Second Hand Smoke Exposure: No service: Yes Current occupational status: employed 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 On the right side camera there was note of some hypergranulation tissue on the incision. There is no obvious infection Palpation (GI): Soft to palpation Office Procedures Cauterization - Skin lesions Skin Cauter Details: He was in bianca-knife position. The area of hypergranulation tissue measuring about 1 cm was cauterized using silver nitrate sticks down to a dark eschar. Tolerated the procedure well. There were no immediate complications. Destruction: 97150- Chemical Cautery, Granulation Tissue Assessment & Plan Assessment & Plan (1) Hypergranulation: Code(s): L92.9 - Granulomatous disorder of the skin and subcutaneous tissue, unspecified Category: Medical Plan: He had some hypergranulation tissue on the right perianal area from his old incision for his hemorrhoidectomy. I therefore cauterized this using silver nitrate sticks The left hemorrhoidectomy site has healed well I will see him again in about 2 months to see how this right side is healing. Coding Level of Care Code Est Pt Level 3 (32623) Diagnoses Hypergranulation L92.9 CPT Codes Skin Cauter - Destruction: 32133- Chemical Cautery, Granulation Tissue ([id number])
== END 2024-10-28 14:17 | disposition home or self-care (01) ==
LOC: HO.HGS 13:52
PROVIDERS: PCP Internal Medicine; Visit Provider Surgery
DX: L92.9 Granulomatous disorder of the skin and subcutaneous tissue, unspecified (principal)
CPT/HCPCS: 17250; 99213

== ENCOUNTER → 2024-10-28 13:52 | Outpatient (BNVA) | payer OTHER, SELFPAY | PROVIDERS: PCP Internal Medicine; Visit Provider Surgery | DX: L76.82 Other postprocedural complications of skin and subcutaneous tissue (principal); L92.9 Granulomatous disorder of the skin and subcutaneous tissue, unspecified | CPT/HCPCS: 17250 ==

== ENCOUNTER 2025-04-06 08:14 | Outpatient (REF) | payer OTHER, SELFPAY ==
[2025-04-06 10:28] LABS: MANUAL DIFF FLAG NO
[2025-04-06 10:46] LABS: Basophils Absolute Auto 0.1 X10*3/uL (0.0-0.2); Basophils Percent Auto 0.9 % (0-2); Eosinophils Absolute Auto 0.7 X10*3/uL (0.0-0.4); Eosinophils Percent Auto 7.4 % (0-4); Hematocrit 42.9 % (42.0-52.0); Hemoglobin 14.8 g/dl (14.0-18.0); Imm Gran Abs Auto 0.06 X10*3/uL (0.00-0.03); Imm Gran Pct Auto 0.7 % (0.0-0.4); Lymphocytes Absolute Auto 1.6 X10*3/uL (1.2-4.9); Lymphocytes Percent Auto 17.1 % (20-40); Mean Corpuscular HGB Conc 34.5 g/dl (31.0-36.0); Mean Corpuscular Hemoglobin 31.7 pg (27.0-33.0); Mean Corpuscular Volume 91.9 fL (80.0-98.0); Mean Platelet Volume 9.6 fL (9.4-12.4); Monocytes Absolute Auto 0.7 X10*3/uL (0.1-1.2); Monocytes Percent Auto 7.9 % (2-11); Platelet Count 289 X10*3/uL (160-400); Red Blood Count 4.67 X10*6/uL (4.60-5.80); Red Cell Distribution Width 12.4 % (11.0-16.0); White Blood Count 9.1 X10*3/uL (4.8-10.8)
[2025-04-06 11:33] LABS: Alanine Aminotransferase 36 U/L (0-40); Alkaline Phosphatase 78 U/L (39-117); Anion Gap 10 (12-20); Aspartate Amino Transferase 25 U/L (5-37); Bilirubin Total 0.4 mg/dL (0.0-1.0); Blood Urea Nitrogen 15 mg/dL (9-16); Calcium 9.5 mg/dL (8.4-10.2); Carbon Dioxide 25 mmol/L (22-29); Chloride 106 mmol/L (96-108); Estimated Glomerular Filt Rate > 60; Glucose Random 100 mg/dL (60-115); Potassium 4.3 mmol/L (3.3-5.1); Sodium 137 mmol/L (135-145); Total Protein 7.1 g/dL (6.5-8.0)
[2025-04-06 11:41] LABS: Ferritin 33 ng/mL (20-250)
== END 2025-04-06 08:15 | disposition home or self-care (01) ==
LOC: HO.LAB 08:14
PROVIDERS: PCP Internal Medicine; Visit Provider Internal Medicine Gastroenterology
DX: K64.9 Unspecified hemorrhoids (principal); K62.5 Hemorrhage of anus and rectum
CPT/HCPCS: 36415; 80053; 82728; 85025

== ENCOUNTER 2025-04-06 08:14 | Outpatient (AMB) | payer OTHER, SELFPAY ==
--- NOTE | 2025-04-06 08:20 | A.OFFVIS_ITS ---
Vital Signs 04/06/25 08:22 Height 5 ft 11 in Weight 250 lb BMI 34.9 BP 136/84 Blood Pressure Location Rt brachial Position Sitting Pulse 55 Intake Visit Reasons: Rectal bleeding Intake Note: Patient scheduled today's appointment c/o rectal bleeding. Diarrhea w/blood. Goes to the bathroom between 8-10 times a day. Taking Fiber pills. Last visit w/GI 03-23-2024. Hx of hemorrhoidectomy on 01-09-2024. Managing Consultant Required: No Accompanied by: Self / Same As Patient Allergies No Known Allergies Allergy (Mild, Verified 04/06/25 08:21) NOT APPLICABLE Medication List - Last Reconciled 04/06/25 by Asael Claros MD ascorbic acid (vitamin C) (Vitamin C) 100 mg PO DAILY azelastine-fluticasone 137-50 mcg/spray 1 spray intranasal BID calcium carbonate (Calcium 600) 600 mg PO DAILY cetirizine 10 mg PO DAILY cholecalciferol (vitamin D3) (Vitamin D3) 125 mcg PO DAILY dicyclomine 10 mg PO BID docusate sodium (Colace) 100 mg PO BID fluticasone propionate 50 mcg/actuation 1 spray intranasal BID hydrocortisone 2.5% (Proctosol HC) 1 appl DE BEDTIME PRN ibuprofen 600 mg PO Q6H PRN methylcellulose (laxative) (Citrucel) 500 mg PO BID multivitamin 1 tab PO DAILY HPI HPI Rectal bleeding: Details: His main complaint now is he has multiple bowel movements every day. He says he usually has up to 10 bowel movements and this is usually watery He does see bright blood per rectum as well with diarrhea periodically With regards to his hemorrhoidectomy site, he says that this has already healed and he was good for about 2-3 months without any problems until the diarrhea started. He says that he has had this issue of diarrhea on and off for many years. His last colonoscopy was 2 years ago. He says he had called the production scheduler service to be seen because of the diarrhea but he was referred to me because of the presence of blood in his stools. 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: House Do you presently have visiting nurse or other home services: No Alcohol intake: current Alcohol intake frequency: holidays/special occasions only Comment: counts correct Patient Tobacco Use Status: Former Tobacco user Tobacco use type: Cigarette e-Cigarette/Vaping Use: Never Used Second Hand Smoke Exposure: No service: Yes Current occupational status: employed Current occupation: [employer] Current occupational exposures/hazards: Yes Cognitive needs: No Hearing needs: No Vision needs: Yes Review of Systems Const Denies chills and Denies fever(s) Card Denies chest pain, Denies dyspnea and Denies dyspnea on exertion Resp Denies cough, Denies dyspnea and Denies dyspnea on exertion GI Reports hematochezia and Denies change in bowel habits Denies hematuria and Denies difficulty urinating Musc Denies back pain and Denies limited range of motion Neuro Denies focal weakness and Denies convulsions Psych Denies depression and Denies mood swings Physical Exam Vital Signs: Last Vital Signs Pulse 55 04/06/25 08:22 BP 136/84 04/06/25 08:22 BMI result Body Mass Index 34.9 Const General: comfortable and no acute distress Resp Effort & Inspection: normal respiratory effort GI Other: Rectal exam shows external hemorrhoids, non bulky, with previous hemorrhoidectomy sites already completely healed Palpation (GI): Soft to palpation, not firm and nontender Assessment & Plan Assessment & Plan (1) Diarrhea: Code(s): R19.7 - Diarrhea, unspecified Category: Medical Plan: He has chronic diarrhea and I told him that passage of blood per rectum is likely consequence of irritation because of his frequent bowel movements. His hemorrhoidectomy sites have healed well. He does have residual hemorrhoids but I told him that control of bleeding from these require good control of his diarrhea as well I will have him be seen again by his production scheduler for control of his chronic diarrhea I will see him again in the office however in about 3 months to see how is doing overall. I have recommended for him to increase his fiber supplements. His abdominal exam is benign. He is comfortable with the plan. Coding Level of Care Code Est Pt Level 3 (80406) Diagnoses Diarrhea R19.7
[2025-04-06 08:22] VITALS: BP 136/84; PULSE 55; BMI 34.9
== END 2025-04-06 08:44 | disposition home or self-care (01) ==
LOC: HO.HGS 08:14
PROVIDERS: PCP Internal Medicine; Visit Provider Surgery
DX: R19.7 Diarrhea, unspecified (principal)
CPT/HCPCS: 99213

== ENCOUNTER 2025-04-06 09:00 | Outpatient (AMB) | payer OTHER, SELFPAY ==
--- NOTE | 2025-04-06 09:08 | A.OFFVIS_ITS ---
Intake Visit Reasons: rectal bleeding, abdominal pain pt Intake Note: Patient complex follow up for rectal bleeding and abdominal pain/Maggy former patient and brian was 03/23/2024. 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 Accompanied by: Self / Same As Patient Allergies No Known Allergies Allergy (Mild, Verified 04/06/25 09:08) NOT APPLICABLE Medication List - Last Reconciled 04/06/25 by Lang Duncan MD ascorbic acid (vitamin C) (Vitamin C) 100 mg PO DAILY azelastine-fluticasone 137-50 mcg/spray 1 spray intranasal BID calcium carbonate (Calcium 600) 600 mg PO DAILY cetirizine 10 mg PO DAILY cholecalciferol (vitamin D3) (Vitamin D3) 125 mcg PO DAILY dicyclomine 10 mg PO BID docusate sodium (Colace) 100 mg PO BID fluticasone propionate 50 mcg/actuation 1 spray intranasal BID hydrocortisone 2.5% (Proctosol HC) 1 appl [place] BEDTIME PRN methylcellulose (laxative) (Citrucel) 500 mg PO BID multivitamin 1 tab PO DAILY HPI HPI rectal bleeding, abdominal pain pt: Details: GI clinic visit for this 64 YM with hyperlipidemia and sleep apnea for evaluation of rectal bleeding. Patient was previously followed by SHANE Olivo TODAY'S VISIT: Patient here for follow up of rectal bleeding and abdominal pain/Maggy former patient and brian was 03/23/2024. Patient cc: abdominal cramp with pain and bloating, daily rectal bleeding/bright red with soft stool with urgency to use bathroom and some GERD 12/2023 Pt had hemorrhoidectomy performed by Dr. Claros: He had a a large hemorrhoid column, on the left and another on the right which were both excised. Postop pt had a persistent wound on the left perianal area after hemorrhoidectomy with significant hypergranulation tissue which was cauterized with silver nitrate sticks. Pt reports having recurrent rectal bleeding since February and has noted several episodes during the day. Blood is bright red - mixed and separate from the stools. Blood on the TP and spolitches of blood in the toilet bowl Can have BMs without any blood and BMs containing mostly blood - upto 10 times a day More blood in the morning and settles down later in the afternoon. Sees more blood if he is more active and less if he is sitting around Had a huge accident this morning. Denies rectal or anal pain. Notes mild heartburn and indigestion the last few days - takes an antacids. Patient denies symptoms of dysphagia, nausea, vomiting, change in appetitewei. Admits to getting heavier due to no execise Has noted a change in BMs with diarrhea with soft stools - stopped using the stool softeners Patient denies major cardiac or pulmonary problems, Pt has loud snoring and suspected sleep apnea and does not use a CPAP machine. Denies problems with anesthesia in the past. Denies being on chronic anticoagulation. Patient denies known family history of colon polyps, colon cancer or other GI malignancies. [facility] : Reviewed IMAGING STUDIES: 11/[address] SCAN SHOWED: * Scattered diverticulosis but no evidence for diverticulitis. Colon is decompressed but I do not appreciate any obvious focal colonic wall thickening or pericolonic inflammatory change. No obstructive changes to the bowel. No acute intra-abdominal process seen otherwise. ENDOSCOPIC STUDIES: 09/2022 [address] STEVENSON: Impression: 1. Normal colon mucosa 2. Diverticulosis 3. External and internal hemorrhoids Recommendations: - Repeat colonoscopy in 10 years for CRC screening. PAST GI HISTORY BY REVIEW OF MEDICAL RECORDS: 03/2024 LAST SEEN BY SHANE OLIVO: A 63 y/o male hx hemorrhoidectomy- was seen for irregular bowel pattern- he admits to stress- sent back to surgeon- needed reassurrance he was healed- which he was We reviewed colonoscopy from 09/2022- Dr. Rachel STEVENSON-repeat 10 years. He says he feels hes making progress- some days after BM he feels like he has to go again He has started to decrease the metamucil- thinking that may be associated He says he ws obsessed with what hewas eating- how often he had to go etc- Patient Instructions: He will try citrucel and hold back metamucil Avoid straining Follow-up with Dr. Claros as need for any further hemorrhoidal issues [facility] Medical History Hypergranulation Angina at rest Elevated cholesterol Sleep apnea Hemorrhoids that prolapse with straining and require manual replacement back inside anal canal Hemorrhoids with complication Surgical History History of hemorrhoidectomy (~01/09/24) Hx of umbilical hernia repair Hx of wisdom tooth extraction Hx of knee surgery Hx of colonoscopy Family History Father Substance use disorder Mother CAD (coronary artery disease), Onset Age: 60 Brother Hodgkin disease Social History Household Members: Spouse 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:: , 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: House Do you presently have visiting nurse or other home services: No Alcohol intake: current Alcohol intake frequency: holidays/special occasions only Comment: counts correct Patient Tobacco Use Status: Former Tobacco user Tobacco use type: Cigarette e-Cigarette/Vaping Use: Never Used Second Hand Smoke Exposure: No service: Yes Current occupational status: employed 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 occupational exposures/hazards: Yes Cognitive needs: No Hearing needs: No Vision needs: Yes Review of Systems Const All systems reviewed & are unremarkable except as noted in HPI and below Physical Exam Const General: healthy appearing and no acute distress Nutritional Appearance: obese Orientation/consciousness: patient oriented x3 Limitations: no limitations HEENT Head: Yes normal to inspection Ears: hearing grossly normal bilaterally Eyes Sclerae: sclerae normal Pupils: Equal, round and reactive pupils present Neck Neck: Yes normal visual inspection Chest Chest palpation & inspection: normal inspection of the chest Resp Effort & Inspection: normal respiratory effort Auscultation: clear to auscultation bilaterally Cardio Palpation: normal PMI Rate: regular rate Rhythm: regular rhythm Heart sounds: S1 normal heart sound present, S2 normal heart sound present and no murmurs GI Palpation (GI): Soft to palpation, nontender and No hepatosplenomegaly present Auscultation: normal bowel sounds Rectal Exam - Male: Yes deferred Skin General skin exam: no rashes or lesions noted Neuro General: patient oriented x3, gait normal and moves all extremities Cranial nerves: Yes Equal, round and reactive pupils present Psych Appearance: grossly normal Mental Status: mental status grossly normal Assessment & Plan Assessment & Plan (1) Hemorrhoids: Comment: -s/p hemorrhoidectomy 01/09/24-followed up with Dr. Claros Code(s): K64.9 - Unspecified hemorrhoids Category: Medical (2) Rectal bleeding: Code(s): K62.5 - Hemorrhage of anus and rectum Category: Medical Plan 64 YM with hyperlipidemia and sleep apnea seen for evaluation of diarrhea associated with recurrent episodes of rectal bleeding for the past month. Pattern of bleeding is different from hemorrhoidal bleeding in the past. 09/2022 colonoscopy showed diverticulosis and hemorrhoids and no polyps were detected. 12/2023 Pt had hemorrhoidectomy performed by Dr. Claros. Patient denies major cardiac or pulmonary problems, Pt has loud snoring and suspected sleep apnea and does not use a CPAP machine. Denies problems with anesthesia in the past. Denies being on chronic anticoagulation. Patient was advised further evaluation with colonoscopy. Colonoscopy procedure and potential complications including bleeding, perforat ion, reaction to anesthetics were reviewed with the patient. Orders: Orders Ferritin Today K62.5 - Hemorrhage of anus and rectum Complete Blood Count Auto Diff Today K62.5 - Hemorrhage of anus and rectum Comprehensive Met. Panel Today K62.5 - Hemorrhage of anus and rectum Medications: New bisacodyl (Dulcolax (bisacodyl)) Take 4 tablets at 12 pm the day before colonoscopy appointment 20 mg (4 x 5 mg) PO ONCE 4 tabs 0RF colon prep 1 day polyethylene glycol 3350 (Miralax) Mix Miralax with 64 oz(8 cups) of Crystal light. Take 2 tablets of Dulcolax qt 12 pm. Wait to have your 1st bowel movement, then begin drinking Miralax. Drink a glass of Miralax every 10-15 minutes until you are finished. You will drink at least another 4 cups of clear liquid of your choice over the next 2 hours. Please drink as many clear liquids as possible You may have clear liquids up to four hours before your procedure 17 grams PO DAILY 238 grams 0RF colon prep 1 day Coding Level of Care Code Est Pt Level 4 (22616) Diagnoses Hemorrhoids K64.9 Rectal bleeding K62.5 Time Spent (min) 22
== END 2025-04-06 10:13 | disposition home or self-care (01) ==
PROVIDERS: PCP Internal Medicine; Visit Provider Internal Medicine Gastroenterology
DX: K64.9 Unspecified hemorrhoids (principal); K62.5 Hemorrhage of anus and rectum
CPT/HCPCS: 99214

== ENCOUNTER 2025-04-08 12:26 | Day surgery (SDC) | payer OTHER, SELFPAY ==
[2025-04-08 13:20] VITALS: BMI 33.7
[2025-04-08 13:37] VITALS: BP 141/78; PULSE 66; RESP 16; TEMP 36.6; O2SAT 97
[2025-04-08] MEDS: Lactated Ringers 1,000 ML 100 ML IVCONT (13:42)
--- NOTE | 2025-04-08 15:07 | MHC.SHP ---
Pre-Procedural Eval Section A - 24 Hr Update-Section A only Date of Service: 04/08/25 The patient is an INPATIENT: No The patient has been examined within 24 hours of the surgical procedure. The History & Physical has been completed within 30 days and I have reviewed it.: Yes Section B - Complete if H&P > 30 days Chief Complaint: Rectal bleeding Allergies: Allergies Allergy/AdvReac Type Severity Reaction Status Date / Time No Known Allergies Allergy Mild NOT Verified 04/06/25 09:08 APPLICABLE Plan Diagnosis/Plan: Unchanged I have reviewed the history and physical and performed a pertinent physical examination on my patient. No changes have occurred unless specified. Time Spent With Patient Time: Total time managing care of this patient today ____ minutes.
--- NOTE | 2025-04-08 15:09 | HO.ANESPROP2 ---
[facility] Active Problems Active Problems: All Active Problems (Updated 04/06/25 @ 09:24 by Lang Duncan MD) Rectal bleeding (Acute) Hypergranulation (Acute) Hearing loss (Acute) Recent change in frequency of bowel movements (Acute) Right knee meniscal tear (Acute) Sleep apnea (Acute) Syncope (Acute) Angina at rest (Acute) Pancolitis (Acute) Diarrhea (Acute) Bandemia (Acute) Hyperlipidemia (Acute) Vitamin D deficiency (Acute) Diarrhea (Acute) Change in bowel habit (Acute) Encounter for screening colonoscopy (Acute) Hemorrhoids (Acute) Morbid (severe) obesity due to excess calories (Acute) Overweight (Acute) Diastasis recti (Acute) Umbilical hernia (Acute) Hernia (Acute) Annual physical exam (Acute) Hemorrhoids that prolapse with straining and require manual replacement back inside anal canal (Acute) Hemorrhoids with complication (Acute) Past Medical History Medical History Hypergranulation Angina at rest Elevated cholesterol Sleep apnea Hemorrhoids that prolapse with straining and require manual replacement back inside anal canal Hemorrhoids with complication Family History Family History Father Substance use disorder Mother CAD (coronary artery disease), Onset Age: 60 Brother Hodgkin disease Family history of problems with anesthesia: No Surgical History Surgical History History of hemorrhoidectomy (~01/09/24) Hx of umbilical hernia repair Hx of wisdom tooth extraction Hx of knee surgery Hx of colonoscopy History of Problems with Anesthesia: No Social History Social History Household Members: Spouse 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:: , 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 Do you presently have visiting nurse or other home services: No Alcohol intake: current Alcohol intake frequency: holidays/special occasions only Comment: counts correct Patient Tobacco Use Status: Former Tobacco user Tobacco use type: Cigarette e-Cigarette/Vaping Use: Never Used Second Hand Smoke Exposure: No Use of substances other than those prescribed or required for medical reasons: No Advance Directives: No Advance Directives Information Provided: Yes service: Yes Current occupational status: employed Current occupation: [employer] Current occupational exposures/hazards: Yes Cognitive needs: No Hearing needs: No Vision needs: Yes Meds Allergies Allergy/AdvReac Type Severity Reaction Status Date / Time No Known Allergies Allergy Mild NOT Verified 04/06/25 09:08 APPLICABLE Active Medications: Current Medications Lactated Ringer's (Lr) 1,000 mls @ 100 mls/hr IVCONT .Q10H MATT Last Admin: 04/08/25 13:42 Dose: 100 mls/hr Naloxone HCl (Naloxone Hcl 0.4 Mg/Ml Vial) 0.04 mg IVPUSH Q5M PRN PRN Reason: Excessive sedation or RR < 8 Home Medications ?Medication ?Instructions ?Recorded ?Confirmed ?Last Taken ?Type ascorbic acid (vitamin C) 100 mg 100 mg PO DAILY 08/08/22 04/06/25 10/17/23 History tablet (Vitamin C) cholecalciferol (vitamin D3) 125 125 mcg PO DAILY 08/08/22 04/06/25 10/17/23 History mcg (5,000 unit) tablet (Vitamin D3) multivitamin 1 tab PO DAILY 08/08/22 04/06/25 10/17/23 History calcium carbonate (Calcium 600) 600 mg PO DAILY 10/18/23 04/06/25 10/17/23 History cetirizine 10 mg tablet 10 mg PO DAILY 10/18/23 04/06/25 10/17/23 History azelastine 137 mcg-fluticasone 50 1 spray intranasal BID 10/27/23 04/06/25 Unknown History mcg/spray nasal spray Exam Height,Weight and Vital Signs: Height 5 ft 11 in Weight 109.6 kg Last Vital Signs Temp 97.8 F 04/08/25 13:37 Pulse 66 04/08/25 13:37 Resp 16 04/08/25 13:37 BP 141/78 H 04/08/25 13:37 Pulse Ox 97 04/08/25 13:37 O2 Del Method Room Air 04/08/25 13:37 Airway Mallampati Class: II (caps front top teeth, and throughout) TM Dist: >3cm Neck ROM: Full Heart: rrr Lungs: cta Assessment and Plan Assessment Anesthesia Assessment: Anesthesia Plan Discussed and Chart Reviewed Final Anesthetic Review Family History of Problems with Anesthesia: No History of Problems with Anesthesia: No NPO: Yes ASA Class: III Final Preanesthetic Review: No Changes in Pt Med Stat, Meds/Allgs Chart Reviewed and Consent Obtained/Reviewed Patient Risk: Low Procedure Risk: Low Anesthetic Plan Anesthetic Plan: MAC: Disposition: Standard PACU
[2025-04-08 15:49] VITALS: BP 112/62; PULSE 57; RESP 16; TEMP 36.6; O2SAT 96
--- NOTE | 2025-04-08 15:49 | P.OPN-COLO_ITS ---
Colonoscopy Operative Note Operative Note Date of Service: 04/08/25 Narrative: COLONOSCOPY TILL CECUM WITH BIOPSIES Pre-op diagnosis: Diarrhea and rectal bleeding. Post-op diagnosis:? Pancolitis, Diverticulosis, hemorrhoids Endoscopist:? Lang Duncan MD Anesthesia:?MAC Consent: Indications for the procedure and potential complications of bleeding, perforation, reaction to medications and missed diagnosis were discussed with the patient and informed consent was obtained. Instrument: Olympus CF H 190 L variable stiffness adult colonoscope Monitoring: Vital signs and clinical assessment, intermittent blood pressure monitoring, continuous EKG monitoring, Pulse oximetry and Carbon Dioxide monitoring were done throughout the procedure. Please see anesthesia flowsheet. Colon withdrawl time was 15 minutes. Procedure: The patient was placed in the left lateral decubitis position and pre-procedure medications were administered. After a digital rectal examination of the ano-rectum, the video colonoscope was inserted into the rectum and advanced through the colon to the cecum. The colonoscope was slowly withdrawn in a retrograde panoramic fashion and the colon mucosa was carefully examined including a retroflexed view of the rectum. Findings and interventions are described below. Procedure Difficulty: without difficulty Findings: Terminal Ileum: Not evaluated Cecum: Edema, erythema, edematous and friable mucosa with ulcerations and exudate Ascending Colon: Edema, erythema, edematous and friable mucosa with ulcerations and exudate Transverse Colon: Friable appearing mucosa withut ulcers Descending Colon: Friable appearing mucosa withut ulcers Sigmoid Colon: Edema, erythema, edematous and friable mucosa with ulcerations and exudate Moderate diverticulosis Rectum: Edema, erythema, edematous and friable mucosa with ulcerations and exudate Ano-rectum: Moderate internal hemorrhoids Colon preparation: Good after copious irrigation. [place] Bowel Preparation Scale Right colon; 2 Transverse colon: 2 Left colon; 2 (0 = Unprepared colon segment with mucosa not seen due to solid stool that cannot be cleared. 1 = Portion of mucosa of the colon segment seen, but other areas of the colon segment not well seen due to staining, residual stool and/or opaque liquid. 2 = Minor amount of residual staining, small fragments of stool and/or opaque liquid, but mucosa of colon segment seen well. 3 = Entire mucosa of colon segment seen well with no residual staining, small fragments of stool or opaque liquid) Impression and Post Procedure Diagnosis: Colonoscopy Findings: Edema, erythema, edematous and friable mucosa with ulcerations and exudate throughout the colon. Inflammation was worse in the left colon with relatively normal-appearing mucosa in the distal transverse and descending colon from 55 to 80 cms - multiple biopsies were obtained and stool was sent for C diff toxin. No polyps were detected Moderate diverticulosis seen in the sigmoid colon Moderate hemorrhoids on antegrade exam. Plan: Pt has a FU appointment on 04/28/[address] Duncan If C Diff toxin is negative, I will check CRP and IBD serologies and prescribe Prednisone taper followed by mesalamine. Repeat Colonoscopy in 7 - 8 years if biopsies confirm presence of IBD. Above findings were reviewed with the patient and relevant handouts were given and the discharge area. ADDENDUM: Stool test was negative for C Diff toxin. Patient informed of results and advised to start prednisone taper for IBD. BIOPSIES SHOWED: A. Colon, right, biopsy: Mildly active colitis. B. Colon, transverse, biopsy: Moderately active colitis. C. Colon, descending, biopsy: Colonic mucosa within normal limits. D. Colon, sigmoid, biopsy: Chronic, mildly active, colitis. E. Rectum, biopsy: Chronic, moderately active, proctitis. Comment: No dysplasia or granulomata are identified Pt informed of results and advised to start sulfasalazine 1 g p.o. twice daily (Mesalamine was not covered by his insurance)
[2025-04-08 16:04] VITALS: BP 122/67; PULSE 58; RESP 18; TEMP 36.4; O2SAT 98
[2025-04-08 16:30] LABS: CDiff Gene PCR NEGATIVE (Negative)
== END 2025-04-08 16:16 | disposition home or self-care (01) ==
PROVIDERS: PCP Internal Medicine; Visit Provider Internal Medicine Gastroenterology
PROC: 0DJD8ZZ Inspection of Lower Intestinal Tract, Via Natural or Artificial Opening Endoscopic (ICD-10-PCS; CPT 45378; principal; 2025-04-08 15:00)
DX: K52.9 Noninfective gastroenteritis and colitis, unspecified (principal); K51.00 Ulcerative (chronic) pancolitis without complications; K57.30 Diverticulosis of large intestine without perforation or abscess without bleeding; K62.5 Hemorrhage of anus and rectum; L92.9 Granulomatous disorder of the skin and subcutaneous tissue, unspecified; R19.4 Change in bowel habit; E78.5 Hyperlipidemia, unspecified; G47.30 Sleep apnea, unspecified; Z87.891 Personal history of nicotine dependence
CPT/HCPCS: 45380; 87493; 88305; J2003; J2704

== ENCOUNTER → 2025-04-08 12:26 | Outpatient (BNV) | payer OTHER, SELFPAY | PROVIDERS: PCP Internal Medicine; Visit Provider Internal Medicine Gastroenterology | DX: K51.011 Ulcerative (chronic) pancolitis with rectal bleeding (principal); K57.90 Diverticulosis of intestine, part unspecified, without perforation or abscess without bleeding; K64.8 Other hemorrhoids | CPT/HCPCS: 43239 ==

== ENCOUNTER 2025-04-28 09:55 | Outpatient (REF) | payer OTHER, SELFPAY ==
[2025-04-28 11:25] LABS: MANUAL DIFF FLAG NO
[2025-04-28 11:57] LABS: Hematocrit 39.5 % (42.0-52.0); Hemoglobin 13.6 g/dl (14.0-18.0); Imm Gran Abs Auto 0.13 X10*3/uL (0.00-0.03); Imm Gran Pct Auto 0.9 % (0.0-0.4); Lymphocytes Absolute Auto 0.8 X10*3/uL (1.2-4.9); Mean Corpuscular HGB Conc 34.4 g/dl (31.0-36.0); Mean Corpuscular Hemoglobin 31.9 pg (27.0-33.0); Mean Corpuscular Volume 92.5 fL (80.0-98.0); NRBC Abs Auto 0.000 X10*3/uL (0.0-0.012); NRBC Pct Auto 0.0 /100WBC (0.0-0.2); Platelet Count 330 X10*3/uL (160-400); Red Blood Count 4.27 X10*6/uL (4.60-5.80); White Blood Count 14.9 X10*3/uL (4.8-10.8)
[2025-04-28 12:30] LABS: Alanine Aminotransferase 31 U/L (0-40); Albumin Level 3.9 g/dL (3.5-5.0); Alkaline Phosphatase 71 U/L (39-117); Aspartate Amino Transferase 19 U/L (5-37); Estimated Glomerular Filt Rate > 60; Total Protein 6.9 g/dL (6.5-8.0)
== END 2025-04-28 09:56 | disposition home or self-care (01) ==
LOC: HO.LAB 09:55
PROVIDERS: PCP Internal Medicine; Visit Provider Internal Medicine Gastroenterology
DX: K51.00 Ulcerative (chronic) pancolitis without complications (principal); K62.5 Hemorrhage of anus and rectum; K62.89 Other specified diseases of anus and rectum; K52.9 Noninfective gastroenteritis and colitis, unspecified; E78.5 Hyperlipidemia, unspecified; G47.30 Sleep apnea, unspecified; K64.4 Residual hemorrhoidal skin tags; K64.8 Other hemorrhoids
CPT/HCPCS: 36415; 80076; 81335; 81479; 82397; 82565; 83520; 85025; 86140; 88346; 88350

== ENCOUNTER 2025-04-28 09:55 | Outpatient (AMB) | payer OTHER, SELFPAY ==
--- NOTE | 2025-04-28 10:00 | A.OFFVIS_ITS ---
Vital Signs 04/28/25 10:01 Height 5 ft 11 in Weight 242 lb 8.136 oz BMI 33.8 BP 140/70 H Blood Pressure Location Lt brachial Position Sitting Pulse 59 Intake Visit Reasons: s/p colo Intake Note: Gilmer presents in the office as a colonoscopy follow up. CC: has questions about results - still having symptoms. Manager Action Required: No Allergies No Known Allergies Allergy (Mild, Verified 04/28/25 10:01) NOT APPLICABLE Medication List - Last Reconciled 04/28/25 by Lang Duncan MD ascorbic acid (vitamin C) (Vitamin C) 100 mg PO DAILY azelastine-fluticasone 137-50 mcg/spray 1 spray intranasal BID calcium carbonate (Calcium 600) 600 mg PO DAILY cetirizine 10 mg PO DAILY cholecalciferol (vitamin D3) (Vitamin D3) 125 mcg PO DAILY fluticasone propionate 50 mcg/actuation 1 spray intranasal BID hydrocortisone 2.5% (Proctosol HC) 1 appl VA BEDTIME PRN mesalamine 2.4 grams (2 x 1.2 gram) PO DAILY 4 weeks multivitamin 1 tab PO DAILY psyllium husk (Metamucil) 0.4 grams PO BEDTIME sulfasalazine 1 g (2 x 500 mg) PO BID 30 days HPI HPI s/p colo: Details: GI clinic visit for this 64 YM with hyperlipidemia and sleep apnea for evaluation of rectal bleeding to discuss colonoscopy results. Patient was previously followed by SHANE Olivo TODAY'S VISIT: Patient is accompanied by his . CC: has questions about results - still having symptoms. Patient here for follow up of rectal bleeding and abdominal pain/Maggy former patient and brian was 03/23/2024. Colonoscopy and biopsy results were reviewed. Symptoms have partially improved since he started taking Prednisone and sulfasalazine Taking two tab of Prednisone daily and has 3-4 BMs a day (mostly in the am and occasionally at 3:30 am) Nocturnal BMs are more bloody. Notes decrease in the amount of blood. Still has urgency with bowel accidents. Denies side effects from sulfasalzine - rash. Noted mild HILL and an upset stomach. Patient cc: abdominal cramp with pain and bloating, daily rectal bleeding/bright red with soft stool with urgency to use bathroom and some GERD 12/2023 Pt had hemorrhoidectomy performed by Dr. Claros: He had a a large hemorrhoid column, on the left and another on the right which were both excised. Postop pt had a persistent wound on the left perianal area after hemorrhoidectomy with significant hypergranulation tissue which was cauterized with silver nitrate sticks. Pt reports having recurrent rectal bleeding since February and has noted several episodes during the day. Blood is bright red - mixed and separate from the stools. Blood on the TP and spolitches of blood in the toilet bowl Can have BMs without any blood and BMs containing mostly blood - upto 10 times a day More blood in the morning and settles down later in the afternoon. Sees more blood if he is more active and less if he is sitting around Had a huge accident this morning. Denies rectal or anal pain. Notes mild heartburn and indigestion the last few days - takes an antacids. Patient denies symptoms of dysphagia, nausea, vomiting, change in appetitewei. Admits to getting heavier due to no execise Has noted a change in BMs with diarrhea with soft stools - stopped using the stool softeners Patient denies major cardiac or pulmonary problems, Pt has loud snoring and suspected sleep apnea and does not use a CPAP machine. Denies problems with anesthesia in the past. Denies being on chronic anticoagulation. Patient denies known family history of colon polyps, colon cancer or other GI malignancies. [facility] Reviewed IMAGING STUDIES: 11/[address] SCAN SHOWED: * Scattered diverticulosis but no evidence for diverticulitis. Colon isdecompressed but I do not appreciate any obvious focal colonic wall thickening or pericolonic inflammatory change. No obstructive changes to the bowel. No acute intra-abdominal process seen otherwise. ENDOSCOPIC STUDIES: 09/[address] STEVENSON: Impression: 1. Normal colon mucosa 2. Diverticulosis 3. External and internal hemorrhoids Recommendations: - Repeat colonoscopy in 10 years for CRC screening. PAST GI HISTORY BY REVIEW OF MEDICAL RECORDS: 03/2024 LAST SEEN BY SHANE OLIVO: A 63 y/o male hx hemorrhoidectomy- was seen for irregular bowel pattern- he admits to stress- sent back to surgeon- needed reassurrance he was healed- which he was We reviewed colonoscopy from 09/2022- Dr. Rachel STEVENSON-repeat 10 years. He says he feels hes making progress- some days after BM he feels like he has to go again He has started to decrease the metamucil- thinking that may be associated He says he ws obsessed with what hewas eating- how often he had to go etc- Patient Instructions: He will try citrucel and hold back metamucil Avoid straining Follow-up with Dr. Claros as need for any further hemorrhoidal issues [facility] Medical History Hypergranulation Angina at rest Elevated cholesterol Sleep apnea Hemorrhoids that prolapse with straining and require manual replacement back inside anal canal Hemorrhoids with complication Surgical History History of hemorrhoidectomy (~01/09/24) Hx of umbilical hernia repair Hx of wisdom tooth extraction Hx of knee surgery Hx of colonoscopy Family History Father Substance use disorder Mother CAD (coronary artery disease), Onset Age: 60 Brother Hodgkin disease Social History Household Members: Spouse 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:: , [employer] Housing: House Do you presently have visiting nurse or other home services: No Alcohol intake: current Alcohol intake frequency: holidays/special occasions only Comment: counts correct Patient Tobacco Use Status: Former Tobacco user Tobacco use type: Cigarette e-Cigarette/Vaping Use: Never Used Second Hand Smoke Exposure: No service: Yes Current occupational status: employed 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 Current occupational exposures/hazards: Yes Cognitive needs: No Hearing needs: No Vision needs: Yes Review of Systems Const All systems reviewed & are unremarkable except as noted in HPI and below Physical Exam Vital Signs: Last Vital Signs Pulse 59 04/28/25 10:01 BP 140/70 H 04/28/25 10:01 BMI result Body Mass Index 33.8 Const General: healthy appearing and no acute distress Nutritional Appearance: obese Orientation/consciousness: patient oriented x3 Limitations: no limitations HEENT Head: Yes normal to inspection Ears: hearing grossly normal bilaterally Eyes Sclerae: sclerae normal Pupils: Equal, round and reactive pupils present Neck Neck: Yes normal visual inspection Chest Chest palpation & inspection: normal inspection of the chest Resp Effort & Inspection: normal respiratory effort Auscultation: clear to auscultation bilaterally Cardio Palpation: normal PMI Rate: regular rate Rhythm: regular rhythm Heart sounds: S1 normal heart sound present, S2 normal heart sound present and no murmurs GI Palpation (GI): Soft to palpation, nontender and No hepatosplenomegaly present Auscultation: normal bowel sounds Rectal Exam - Male: Yes deferred Skin General skin exam: no rashes or lesions noted Neuro General: patient oriented x3, gait normal and moves all extremities Cranial nerves: Yes Equal, round and reactive pupils present Psych Appearance: grossly normal Mental Status: mental status grossly normal Assessment & Plan Assessment & Plan (1) Hemorrhoids: Comment: -s/p hemorrhoidectomy 01/09/24-followed up with Dr. Claros Code(s): K64.9 - Unspecified hemorrhoids Category: Medical (2) Diarrhea: Code(s): R19.7 - Diarrhea, unspecified Category: Medical Qualifiers: Diarrhea type: presumed infectious Qualified Code(s): R19.7 - Diarrhea, unspecified (3) Pancolitis: Code(s): K51.00 - Ulcerative (chronic) pancolitis without complications Category: Medical (4) Rectal bleeding: Code(s): K62.5 - Hemorrhage of anus and rectum Category: Medical (5) Colitis: Code(s): K52.9 - Noninfective gastroenteritis and colitis, unspecified Category: Medical Plan 64 YM with hyperlipidemia and sleep apnea seen for evaluation of diarrhea associated with recurrent episodes of rectal bleeding for the past month. Pattern of bleeding is different from hemorrhoidal bleeding in the past. 09/2022 colonoscopy showed diverticulosis and hemorrhoids and no polyps were detected. 12/2023 Pt had hemorrhoidectomy performed by Dr. Claros. Patient denies major cardiac or pulmonary problems, Pt has loud snoring and suspected sleep apnea and does not use a CPAP machine. Denies problems with anesthesia in the past. Denies being on chronic anticoagulation. 04/08/25 COLONOSCOPY SHOWED: Edema, erythema, edematous and friable mucosa with ulcerations and exudate throughout the colon. Inflammation was worse in the left colon with relatively normal-appearing mucosa in the distal transverse and descending colon from 55 to 80 cms - multiple biops ies were obtained and stool was sent for C diff toxin. No polyps were detected Moderate diverticulosis seen in the sigmoid colon Moderate hemorrhoids on antegrade exam. Plan: If C Diff toxin is negative, I will check CRP and IBD serologies and prescribe Prednisone taper followed by mesalamine. Repeat Colonoscopy in 7 - 8 years if biopsies confirm presence of IBD. ADDENDUM: Stool test was negative for C Diff toxin. Patient informed of results and advised to start prednisone taper for IBD. BIOPSIES SHOWED: A. Colon, right, biopsy: Mildly active colitis. B. Colon, transverse, biopsy: Moderately active colitis. C. Colon, descending, biopsy: Colonic mucosa within normal limits. D. Colon, sigmoid, biopsy: Chronic, mildly active, colitis. E. Rectum, biopsy: Chronic, moderately active, proctitis. Comment: No dysplasia or granulomata are identified 04/15/25 Pt informed of results and advised to start sulfasalazine 1 g p.o. twice daily (Mesalamine was not covered by his insurance) 04/28/25 Symptoms have partially improved since he started taking Prednisone and sulfasalazine Course and prognosis of UC was reviewed with the pt and his and a handout on UC was provided to the patient. Pt was advised to continue Sulfasalazine 1 gram twice a day and add Mesalamine enema at bedtime x 30 days. He was advised to call/message if symptoms do not improve by end of April. Dose of sulfasalazine can be increased to 3 tab twice a day (Of note pt will be changing his insurance to Medicare next month and may be able to switch to mesalamine) FU in 8 weeks. Orders: Orders Complete Blood Count Auto Diff Today K51.00 - Ulcerative (chronic) pancolitis without complications [facility] SGI Today K51.00 - Ulcerative (chronic) pancolitis without complications Creatinine Today K51.00 - Ulcerative (chronic) pancolitis without complications Liver Panel Today K51.00 - Ulcerative (chronic) pancolitis without complications C Reactive Protein Today K51.00 - Ulcerative (chronic) pancolitis without complications [facility] TPMT Genetics Today K52.9 - Noninfective gastroenteritis and colitis, unspecified Medications: New mesalamine 4 grams rectally daily at bedtime 1,680 mL 1RF 30 days K52.9 - Noninfective gastroenteritis and colitis, unspecified Coding Level of Care Code Est Pt Level 4 (44219) Diagnoses Hemorrhoids K64.9 Diarrhea R19.7 Diarrhea type: presumed infectious Pancolitis K51.00 Rectal bleeding K62.5 Colitis K52.9 Time Spent (min) 24
[2025-04-28 10:01] VITALS: BP 140/70; PULSE 59; BMI 33.8
--- OUTSIDE RECORDS SUMMARY | 2025-04-28 10:28 | XMS_ITS | Patient Health Record ---
Author Organization [facility] Address [address] [place] [id number] Care Team Providers Care Front Office Spec Name Role Phone Arthur Edwards Unavailable [phone] Reason For Referral No Information Plan Of Treatment No Information
== END 2025-04-28 10:56 | disposition home or self-care (01) ==
LOC: HO.HGI 09:55
PROVIDERS: PCP Internal Medicine; Visit Provider Internal Medicine Gastroenterology
DX: K64.9 Unspecified hemorrhoids (principal); R19.7 Diarrhea, unspecified; K51.00 Ulcerative (chronic) pancolitis without complications; K62.5 Hemorrhage of anus and rectum; K52.9 Noninfective gastroenteritis and colitis, unspecified
CPT/HCPCS: 99214

== ENCOUNTER 2025-06-16 09:35 | Outpatient (REF) | payer MEDICARE, SELFPAY ==
[2025-06-16 11:45] LABS: Hematocrit 42.9 % (42.0-52.0); Hemoglobin 14.7 g/dl (14.0-18.0); Mean Corpuscular HGB Conc 34.3 g/dl (31.0-36.0); Mean Corpuscular Hemoglobin 31.7 pg (27.0-33.0); Mean Corpuscular Volume 92.5 fL (80.0-98.0); NRBC Abs Auto 0.000 X10*3/uL (0.0-0.012); NRBC Pct Auto 0.0 /100WBC (0.0-0.2); Platelet Count 249 X10*3/uL (160-400); Red Blood Count 4.64 X10*6/uL (4.60-5.80); White Blood Count 6.0 X10*3/uL (4.8-10.8)
[2025-06-16 11:46] LABS: Alanine Aminotransferase 29 U/L (0-40); Albumin Level 4.2 g/dL (3.5-5.0); Alkaline Phosphatase 65 U/L (39-117); Aspartate Amino Transferase 27 U/L (5-37); Estimated Glomerular Filt Rate > 60; Total Protein 7.4 g/dL (6.5-8.0)
== END 2025-06-16 09:36 | disposition home or self-care (01) ==
LOC: HO.LAB 09:35
PROVIDERS: PCP Internal Medicine; Visit Provider Internal Medicine Gastroenterology
DX: K51.00 Ulcerative (chronic) pancolitis without complications (principal); K42.9 Umbilical hernia without obstruction or gangrene; K64.2 Third degree hemorrhoids; E78.5 Hyperlipidemia, unspecified; G47.30 Sleep apnea, unspecified
CPT/HCPCS: 36415; 80076; 82565; 85027; 86140

== ENCOUNTER 2025-06-16 09:35 | Outpatient (AMB) | payer BC, SELFPAY ==
--- NOTE | 2025-06-16 09:46 | A.OFFVIS_ITS ---
Vital Signs 06/16/25 09:47 Height 5 ft 11 in Weight 242 lb BMI 33.7 BP 113/74 Blood Pressure Location Lt brachial Position Sitting Pulse 55 Pulse Oximetry (%) 98 Oxygen Delivery Method Room Air Oxygen Flow Rate 244 Intake Visit Reasons: Ulcerative Colitis Intake Note: Patient follow up for Ulcerative Colitis and lab results. Patient denies any GI issues for today. Pad Machine Offbearer Required: No Accompanied by: Self / Same As Patient Allergies No Known Allergies Allergy (Mild, Verified 06/16/25 09:45) NOT APPLICABLE Medication List - Last Reconciled 06/16/25 by Lang Duncan MD ascorbic acid (vitamin C) (Vitamin C) 100 mg PO DAILY azelastine-fluticasone 137-50 mcg/spray 1 spray intranasal BID calcium carbonate (Calcium 600) 600 mg PO DAILY cetirizine 10 mg PO DAILY cholecalciferol (vitamin D3) (Vitamin D3) 125 mcg PO DAILY fluticasone propionate 50 mcg/actuation 1 spray intranasal BID hydrocortisone 2.5% (Proctosol HC) 1 appl MD BEDTIME PRN multivitamin 1 tab PO DAILY psyllium husk (Metamucil) 0.4 grams PO BEDTIME sulfasalazine 1 g (2 x 500 mg) PO BID 30 days HPI HPI Ulcerative Colitis: Details: GI clinic visit for this 64 YM with hyperlipidemia and sleep apnea for FU of IBD. Patient was previously followed by SHANE Olivo TODAY'S VISIT: CC: Patient follow up for Ulcerative Colitis and lab results. Just returned from a trip to [place] and did not have any problems Taking sulfasalazine and has 2 non-bloody BMs a day (usually in the morning) Minor bleeding while hiking and none since. PAST VISITS: Patient here for follow up of rectal bleeding and abdominal pain/Maggy former patient and brian was 03/23/2024. Colonoscopy and biopsy results were reviewed. Symptoms have partially improved since he started taking Prednisone and sulfasalazine Taking two tab of Prednisone daily and has 3-4 BMs a day (mostly in the am and occasionally at 3:30 am) Nocturnal BMs are more bloody. Notes decrease in the amount of blood. Still has urgency with bowel accidents. Denies side effects from sulfasalzine - rash. Noted mild HILL and an upset stomach. Patient cc: abdominal cramp with pain and bloating, daily rectal bleeding/bright red with soft stool with urgency to use bathroom and some GERD 12/2023 Pt had hemorrhoidectomy performed by Dr. Claros: He had a a large hemorrhoid column, on the left and another on the right which were both excised. Postop pt had a persistent wound on the left perianal area after hemorrhoidectomy with significant hypergranulation tissue which was cauterized with silver nitrate sticks. Pt reports having recurrent rectal bleeding since February and has noted several episodes during the day. Blood is bright red - mixed and separate from the stools. Blood on the TP and spolitches of blood in the toilet bowl Can have BMs without any blood and BMs containing mostly blood - upto 10 times a day More blood in the morning and settles down later in the afternoon. Sees more blood if he is more active and less if he is sitting around Had a huge accident this morning. Denies rectal or anal pain. Notes mild heartburn and indigestion the last few days - takes an antacids. Patient denies symptoms of dysphagia, nausea, vomiting, change in appetitewei. Admits to getting heavier due to no execise Has noted a change in BMs with diarrhea with soft stools - stopped using the stool softeners Patient denies major cardiac or pulmonary problems, Pt has loud snoring and suspected sleep apnea and does not use a CPAP machine. Denies problems with anesthesia in the past. Denies being on chronic anticoagulation. Patient denies known family history of colon polyps, colon cancer or other GI malignancies. LABS IN [facility] : Reviewed IMAGING STUDIES: 11/[address] SCAN SHOWED: * Scattered diverticulosis but no evidence for diverticulitis. Colon isdecompressed but I do not appreciate any obvious focal colonic wallthickening or pericolonic inflammatory change. No obstructive changes to the bowel. No acute intra-abdominal process seen otherwise. ENDOSCOPIC STUDIES: 09/2022 [address] STEVENSON: Impression: 1. Normal colon mucosa 2. Diverticulosis 3. External and internal hemorrhoids Recommendations: - Repeat colonoscopy in 10 years for CRC screening. PAST GI HISTORY BY REVIEW OF MEDICAL RECORDS: 03/2024 LAST SEEN BY SHANE OLIVO: A 63 y/o male hx hemorrhoidectomy- was seen for irregular bowel pattern- he admits to stress- sent back to surgeon- needed reassurrance he was healed- which he was We reviewed colonoscopy from 09/2022- Dr. Rachel STEVENSON-repeat 10 years. He says he feels hes making progress- some days after BM he feels like he has to go again He has started to decrease the metamucil- thinking that may be associated He says he ws obsessed with what hewas eating- how often he had to go etc- Patient Instructions: He will try citrucel and hold back metamucil Avoid straining Follow-up with Dr. Claros as need for any further hemorrhoidal issues [facility] Medical History Hypergranulation Angina at rest Elevated cholesterol Sleep apnea Hemorrhoids that prolapse with straining and require manual replacement back inside anal canal Hemorrhoids with complication Surgical History History of hemorrhoidectomy (~01/09/24) Hx of umbilical hernia repair Hx of wisdom tooth extraction Hx of knee surgery Hx of colonoscopy Family History Father Substance use disorder Mother CAD (coronary artery disease), Onset Age: 60 Brother Hodgkin disease Social History Household Members: Spouse 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:: , 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 Housing: House Do you presently have visiting nurse or other home services: No Alcohol intake: current Alcohol intake frequency: holidays/special occasions only Comment: counts correct Patient Tobacco Use Status: Former Tobacco user Tobacco use type: Cigarette e-Cigarette/Vaping Use: Never Used Second Hand Smoke Exposure: No service: Yes Current occupational status: employed Current occupation: [employer] Current occupational exposures/hazards: Yes Cognitive needs: No Hearing needs: No Vision needs: Yes Review of Systems Const All systems reviewed & are unremarkable except as noted in HPI and below Physical Exam Vital Signs: Last Vital Signs Pulse 55 06/16/25 09:47 BP 113/74 06/16/25 09:47 Pulse Ox 98 06/16/25 09:47 Oxygen Delivery Method Room Air 06/16/25 09:47 Oxygen Flow Rate 244 06/16/25 09:47 BMI result Body Mass Index 33.7 Const General: healthy appearing and no acute distress Nutritional Appearance: obese Orientation/consciousness: patient oriented x3 Limitations: no limitations HEENT Head: Yes normal to inspection Ears: hearing grossly normal bilaterally Eyes Sclerae: sclerae normal Pupils: Equal, round and reactive pupils present Neck Neck: Yes normal visual inspection Chest Chest palpation & inspection: normal inspection of the chest Resp Effort & Inspection: normal respiratory effort Auscultation: clear to auscultation bilaterally Cardio Palpation: normal PMI Rate: regular rate Rhythm: regular rhythm Heart sounds: S1 normal heart sound present, S2 normal heart sound present and no murmurs GI Palpation (GI): Soft to palpation, nontender and No hepatosplenomegaly present Auscultation: normal bowel sounds Rectal Exam - Male: Yes deferred Skin General skin exam: no rashes or lesions noted Neuro General: patient oriented x3, gait normal and moves all extremities Cranial nerves: Yes Equal, round and reactive pupils present Psych Appearance: grossly normal Mental Status: mental status grossly normal Assessment & Plan Assessment & Plan (1) Umbilical hernia: Code(s): K42.9 - Umbilical hernia without obstruction or gangrene Category: Medical (2) Hemorrhoids: Comment: -s/p hemorrhoidectomy 01/09/24-followed up with Dr. Claros Code(s): K64.9 - Unspecified hemorrhoids Category: Medical (3) Pancolitis: Code(s): K51.00 - Ulcerative (chronic) pancolitis without complications Category: Medical (4) Hemorrhoids that prolapse with straining and require manual replacement back inside anal canal: Code(s): K64.2 - Third degree hemorrhoids Category: Medical (5) Ulcerative colitis: Code(s): K51.90 - Ulcerative colitis, unspecified, without complications Category: Medical Plan 64 YM with hyperlipidemia and sleep apnea seen for evaluation of diarrhea as sociated with recurrent episodes of rectal bleeding for the past month. Pattern of bleeding is different from hemorrhoidal bleeding in the past. 09/2022 colonoscopy showed diverticulosis and hemorrhoids and no polyps were detected. 12/2023 Pt had hemorrhoidectomy performed by Dr. Claros. Patient denies major cardiac or pulmonary problems, Pt has loud snoring and suspected sleep apnea and does not use a CPAP machine. Denies problems with anesthesia in the past. Denies being on chronic anticoagulation. 04/08/25 COLONOSCOPY SHOWED: Edema, erythema, edematous and friable mucosa with ulcerations and exudate throughout the colon. Inflammation was worse in the left colon with relatively normal-appearing mucosa in the distal transverse and descending colon from 55 to 80 cms - multiple biopsies were obtained and stool was sent for C diff toxin. No polyps were detected Moderate diverticulosis seen in the sigmoid colon Moderate hemorrhoids on antegrade exam. Plan: If C Diff toxin is negative, I will check CRP and IBD serologies and prescribe Prednisone taper followed by mesalamine. Repeat Colonoscopy in 7 - 8 years if biopsies confirm presence of IBD. ADDENDUM: Stool test was negative for C Diff toxin. Patient informed of results and advised to start prednisone taper for IBD. BIOPSIES SHOWED: A. Colon, right, biopsy: Mildly active colitis. B. Colon, transverse, biopsy: Moderately active colitis. C. Colon, descending, biopsy: Colonic mucosa within normal limits. D. Colon, sigmoid, biopsy: Chronic, mildly active, colitis. E. Rectum, biopsy: Chronic, moderately active, proctitis. Comment: No dysplasia or granulomata are identified 04/15/25 Pt informed of results and advised to start sulfasalazine 1 g p.o. twice daily (Mesalamine was not covered by his insurance) 04/28/25 Symptoms have partially improved since he started taking Prednisone and sulfasalazine Course and prognosis of UC was reviewed with the pt and his and a handout on UC was provided to the patient. Pt was advised to continue Sulfasalazine 1 gram twice a day and add Mesalamine enema at bedtime x 30 days. He was advised to call/message if symptoms do not improve by end of April. Dose of sulfasalazine can be increased to 3 tab twice a day (Of note pt will be changing his insurance to Medicare next month and may be able to switch to mesalamine) FU in 4 months - scheduled 10/06/25 Orders: Orders Complete Blood Count no Diff Today K51.00 - Ulcerative (chronic) pancolitis without complications Liver Panel Today K51.00 - Ulcerative (chronic) pancolitis without complications C Reactive Protein Today K51.00 - Ulcerative (chronic) pancolitis without complications Creatinine Today K51.00 - Ulcerative (chronic) pancolitis without complications Medications: New mesalamine (Lialda) 2.4 grams (2 x 1.2 gram) PO DAILY 112 tabs 3RF 8 weeks K51.90 - Ulcerative colitis, unspecified, without complications Coding Level of Care Code Est Pt Level 4 (26584) Complex EM visit Add On G2211 Diagnoses Umbilical hernia K42.9 Hemorrhoids K64.9 Pancolitis K51.00 Hemorrhoids that prolapse with straining and require manual replacement back inside anal canal K64.2 Ulcerative colitis K51.90 Time Spent (min) 23
[2025-06-16 09:47] VITALS: BP 113/74; PULSE 55; O2SAT 98; BMI 33.7
--- OUTSIDE RECORDS SUMMARY | 2025-06-16 10:40 | XMS_ITS | Patient Health Record ---
Author Organization [facility] Address [address] [place] [id number] Care Team Providers Care Life Advisor Name Role Phone Arthur Edwards Unavailable [phone] Reason For Referral No Information Plan Of Treatment No Information
== END 2025-06-16 10:24 | disposition home or self-care (01) ==
PROVIDERS: PCP Internal Medicine; Visit Provider Internal Medicine Gastroenterology
DX: K42.9 Umbilical hernia without obstruction or gangrene (principal); K64.9 Unspecified hemorrhoids; K51.00 Ulcerative (chronic) pancolitis without complications; K64.2 Third degree hemorrhoids; K51.90 Ulcerative colitis, unspecified, without complications
CPT/HCPCS: 99214

== ENCOUNTER 2025-09-27 06:56 | Outpatient (REF) | payer MEDICARE, SELFPAY ==
--- OUTSIDE RECORDS SUMMARY | 2025-09-27 07:02 | XMS_ITS | Patient Health Record ---
Author Organization [facility] Address [address] [place] [id number] Care Team Providers Care Director Of Hospitality Name Role Phone Arthur Edwards Unavailable [phone] Reason For Referral No Information Plan Of Treatment No Information
[2025-09-27 10:50] LABS: MANUAL DIFF FLAG NO
[2025-09-27 11:06] LABS: Hematocrit 44.5 % (42.0-52.0); Hemoglobin 15.4 g/dl (14.0-18.0); Imm Gran Abs Auto 0.03 X10*3/uL (0.00-0.03); Imm Gran Pct Auto 0.5 % (0.0-0.4); Lymphocytes Absolute Auto 1.4 X10*3/uL (1.2-4.9); Mean Corpuscular HGB Conc 34.6 g/dl (31.0-36.0); Mean Corpuscular Hemoglobin 31.0 pg (27.0-33.0); Mean Corpuscular Volume 89.5 fL (80.0-98.0); NRBC Abs Auto 0.000 X10*3/uL (0.0-0.012); NRBC Pct Auto 0.0 /100WBC (0.0-0.2); Platelet Count 252 X10*3/uL (160-400); Red Blood Count 4.97 X10*6/uL (4.60-5.80); White Blood Count 6.1 X10*3/uL (4.8-10.8)
[2025-09-27 11:25] LABS: Alanine Aminotransferase 29 U/L (0-40); Albumin Level 4.4 g/dL (3.5-5.0); Alkaline Phosphatase 62 U/L (39-117); Aspartate Amino Transferase 27 U/L (5-37); Blood Urea Nitrogen 17 mg/dL (9-16); Estimated Glomerular Filt Rate > 60; Total Protein 7.2 g/dL (6.5-8.0)
[2025-09-27 11:54] LABS: Folate 14.3 ng/mL (> or = 4.0); Vitamin B12 586 pg/mL (200-900)
== END 2025-09-27 06:57 | disposition home or self-care (01) ==
LOC: HO.HMGCLDS 06:56
PROVIDERS: PCP Internal Medicine; Visit Provider Internal Medicine Gastroenterology
DX: K51.90 Ulcerative colitis, unspecified, without complications (principal)
CPT/HCPCS: 36415; 80076; 82565; 82607; 82746; 84520; 85025

== ENCOUNTER 2025-10-04 10:55 | Outpatient (AMB) | payer MEDICARE, SELFPAY ==
--- NOTE | 2025-10-04 11:10 | MHC.PC.OV ---
Vital Signs 10/04/25 11:33 Height 5 ft 11 in Weight 248 lb BMI 34.6 BP 134/80 Blood Pressure Location Lt brachial Position Sitting Respiration 17 Pulse 56 Pulse Source Pulse Oximeter Temp 98.1 F Temp Source Oral Pulse Oximetry (%) 97 Oxygen Delivery Method Room Air Intake Visit Reasons: PE Intake Note: Pt is here today for PE. Allergies No Known Allergies Allergy (Mild, Verified 10/04/25 11:30) NOT APPLICABLE Medication List - Last Reconciled 10/04/25 by Katy Chambers MD ascorbic acid (vitamin C) (Vitamin C) 100 mg PO DAILY azelastine-fluticasone 137-50 mcg/spray 1 spray intranasal BID calcium carbonate (Calcium 600) 600 mg PO DAILY cetirizine 10 mg PO DAILY fluticasone propionate 50 mcg/actuation 1 spray intranasal BID hydrocortisone 2.5% (Proctosol HC) 1 appl [place] BEDTIME PRN mesalamine (Lialda) 2.4 grams (2 x 1.2 gram) PO DAILY 8 weeks multivitamin 1 tab PO DAILY prednisone 10 mg PO DAILY 3 weeks psyllium husk (Metamucil) 0.4 grams PO BEDTIME sulfasalazine 1.5 grams (3 x 500 mg) PO BID 30 days Tobacco use date assessed: 10/04/25 Fall risk assessment: No Falls in past year Last assessed Fall Risk: 10/04/25 Dental Screening Dental Screen Date: 10/04/25 Did you have a dental visit in the last 12 months?: Yes Did you have a dental problem in the last 6 months where you did not have access to dental care?: No Was dental information given to patient?: Patient has dentist HPI PE HPI Details Pt presents for PE. 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 Housing: House Do you presently have visiting nurse or other home services: No Alcohol intake: current Alcohol intake frequency: holidays/special occasions only Comment: counts correct Patient Tobacco Use Status: Former Tobacco user Tobacco use type: Cigarette e-Cigarette/Vaping Use: Never Used Second Hand Smoke Exposure: No service: Yes Current occupational status: employed Current occupation: [employer] Current occupational exposures/hazards: Yes Cognitive needs: No Hearing needs: No Vision needs: Yes Questionnaire PHQ-9 Over the last 2 weeks, how often have you been bothered by any of the following problems? 1. Little interest or pleasure in doing things: not at all 2. Feeling down, depressed, or hopeless: several days 3. Trouble falling or staying asleep, or sleeping too much: several days 4. Feeling tired or having little energy: not at all 5. Poor appetite or overeating: not at all 6. Feeling bad about yourself - or that you are a failure or have let yourself or your family down: not at all 7. Trouble concentrating on things, such as reading the newspaper or watching television: not at all 8. Moving or speaking so slowly that other people could have noticed. Or the opposite - being so fidgety or restless that you have been moving around a lot more than usual: not at all 9. Thoughts that you would be better off or of hurting yourself in some way: not at all Total score: 2 Depression Screening Interpretation: Negative Depression Screening Done: Yes 99661 - PHQ-9 Billing: Yes Source: Developed by Drs. Arthur Espino, Hannah Khan, Uday Weber and colleagues, with an educational aleshia from [employer]. Thrive Questionnaire Date Thrive assessed: 10/04/25 I am a: Patient What is your living situation today?: I have a steady place to live Within the past 12 months, did the food you bought not last and you didn't have the money to get more?: Never true Within the past 12 months, did you worry whether your food would run out before you got money to buy more?: Never true Do you have trouble paying for medicines?: I choose not to answer this question Do you have trouble getting transportation to medical appointments?: No Do you have trouble paying your heating and electricity bill?: No Do you have trouble taking care of your child, family member or friend?: No Do you have trouble with day-to-day activities such as bathing, preparing meals, shopping, managing finances, etc.?: No Are you currently unemployed and looking for a job?: No Are you interested in more education?: I choose not to answer this question Please select the resources that you would like help with: None Currently or been in a relationship where the following occur: I choose not to answer THRIVE Score: 0 AUDIT C Alcohol Use Questionnaire (AUDIT-C) 1. How often do you have a drink containing alcohol?: 2-4 times a month 2. How many drinks containing alcohol do you have on a typical day when you are drinking?: 1 or 2 3. How often do you have six or more drinks on one occasion?: Never Total Score: 2 JETHRO-7 AMB Questionnaire JETHRO-7 Date JETHRO - 7 assessed: 10/04/25 Feeling nervous, anxious, or on edge: 0 = Not at all Not being able to stop or control worryin = Not at all Worrying too much about different things: 0 = Not at all Trouble relaxin = Several days Being so restless that it is hard to sit still: 0 = Not at all Becoming easily annoyed or irritable: 2 = More than half the days Feeling afraid as if something awful might happen: 0 = Not at all Total JETHRO-7 score (0-4 normal; 5-9 mild; 10-14 moderate; 15-21 severe): 3 Source: Developed by Drs. Arthur Espino, Hannah Khan, Uday Weber and colleagues, with an educational aleshia from [employer]. JETHRO-7 Assessment Billing JETHRO-7 Assessment Tool: JETHRO-7 Assessment 38885 Review of Systems Const All systems reviewed & are unremarkable except as noted in HPI and below Eyes Reports no additional complaints ENT Reports no additional complaints Card Reports no additional complaints Resp Reports no additional complaints GI Reports no additional complaints Reports no additional complaints Physical exam (Primary Care) Vital Signs: Last Vital Signs Temp 98.1 F 10/04/25 11:33 Pulse 56 10/04/25 11:33 Resp 17 10/04/25 11:33 BP 134/80 10/04/25 11:33 Pulse Ox 97 10/04/25 11:33 Oxygen Delivery Method Room Air 10/04/25 11:33 BMI result Body Mass Index 34.6 Tobacco/Smoking Status: Tobacco use Status Tobacco use date assessed 10/04/25 10/04/25 11:34 Patient Tobacco Use Status Former Tobacco user 10/04/25 11:10 Tobacco use type Cigarette 10/04/25 11:10 e-Cigarette/Vaping Use Never Used 10/04/25 11:10 PHQ-9: PHQ-9 Score PHQ-9: Total score 2 10/04/25 12:04 Depression Screening Interpretation: Negative Thrive Assessment: Date of Thrive Assessment Date Thrive assessed 10/04/25 10/04/25 11:34 Currently or been in a relationship where the following occur: I choose not to answer Const General: no acute distress HENMT Head: Yes normal to inspection General nose exam: Normal external nose present Face and sinus: Yes normal facial exam Mouth: Normal oral and palatal mucosa present Throat: Yes posterior oropharynx normal Eyes General: appearance normal, both eyes and all related structures Neck Neck: Yes no lymphadenopathy and Yes supple Resp Effort & Inspection: normal respiratory effort Auscultation: clear to auscultation bilaterally Cardio Rhythm: regular rhythm Heart sounds: S1 normal heart sound present and S2 normal heart sound present GI Inspection: Yes normal to inspection Palpation (GI): Soft to palpation Percussion: Yes normal to percussion Auscultation: normal bowel sounds Coding Level of Care Code Est Pt Prev Care >65y(11313) Diagnoses Annual physical exam Z00.00 Hyperlipidemia E78.5 Morbid (severe) obesity due to excess calories E66.01 Ulcerative colitis K51.90 Additional Codes JETHRO-7 Assessment Billing - JETHRO-7 Assessment Tool: JETHRO-7 Assessment 15209 ([id number]) PHQ-9 - 92219 - PHQ-9 Billing: Yes ([id number]) Assessment & Plan Assessment & Plan (1) Annual physical exam: Code(s): Z00.00 - Encounter for general adult medical examination without abnormal findings Category: Medical Plan: well balanced diet, regular exercise, weight loss discussed, check fasting labs (2) Hyperlipidemia: Code(s): E78.5 - Hyperlipidemia, unspecified Category: Medical Plan: low cholesterol diet discussed (3) Morbid (severe) obesity due to excess calories: Code(s): E66.01 - Morbid (severe) obesity due to excess calories Category: Medical Plan: weight loss discussed (4) Ulcerative colitis: Code(s): K51.90 - Ulcerative colitis, unspecified, without complications Category: Medical Plan: f/u with GI Orders: Orders Vitamin D 25-OH Total Today E78.5 - Hyperlipidemia, unspecified, Z00.00 - Encounter for general adult medical examination without abnormal findings Lipid Panel Today E78.5 - Hyperlipidemia, unspecified, Z00.00 - Encounter for general adult medical examination without abnormal findings Comprehensive [place]. Panel Fast Today E78.5 - Hyperlipidemia, unspecified, Z00.00 - Encounter for general adult medical examination without abnormal findings PSA,Total (Free>4and<10) Today E78.5 - Hyperlipidemia, unspecified, Z00.00 - Encounter for general adult medical examination without abnormal findings UA w Microscopic Today E78.5 - Hyperlipidemia, unspecified, Z00.00 - Encounter for general adult medical examination without abnormal findings Hemoglobin A1c Today R73.9 - Hyperglycemia, unspecified Medications: Discontinued prednisone Take 3 tablets daily for a week Take 2 tablets daily for a week Take 1 tablets daily for a week Discontinued Reason: Doctor's Order 10 mg PO DAILY 3 weeks 21 tabs 0RF K51.90 - Ulcerative colitis, unspecified, without complications
[2025-10-04 11:33] VITALS: BP 134/80; PULSE 56; RESP 17; TEMP 36.7; O2SAT 97; BMI 34.6
--- OUTSIDE RECORDS SUMMARY | 2025-10-04 14:15 | XMS_ITS | Patient Health Record ---
Author Organization [facility] Address [address] [place] [id number] Care Team Providers Care Remote Advisor Name Role Phone Arthur Edwards Unavailable [phone] Reason For Referral No Information Plan Of Treatment No Information
== END 2025-10-04 16:23 | disposition home or self-care (01) ==
LOC: HO.HMCC 10:56
PROVIDERS: PCP Internal Medicine; Visit Provider Internal Medicine
DX: Z00.00 Encounter for general adult medical examination without abnormal findings (principal); E66.01 Morbid (severe) obesity due to excess calories; K51.90 Ulcerative colitis, unspecified, without complications; Z68.34 Body mass index [BMI] 34.0-34.9, adult; E78.5 Hyperlipidemia, unspecified

== ENCOUNTER → 2025-10-04 10:55 | Outpatient (BNVA) | payer MEDICARE, SELFPAY | PROVIDERS: PCP Internal Medicine; Visit Provider Internal Medicine | DX: Z00.00 Encounter for general adult medical examination without abnormal findings (principal); E78.5 Hyperlipidemia, unspecified; E66.01 Morbid (severe) obesity due to excess calories; K51.90 Ulcerative colitis, unspecified, without complications | CPT/HCPCS: 96127; 99397 ==

== ENCOUNTER 2025-10-06 09:04 | Outpatient (AMB) | payer MEDICARE, SELFPAY ==
--- NOTE | 2025-10-06 09:09 | A.OFFVIS_ITS ---
Vital Signs 10/06/25 09:10 Height 5 ft 11 in Weight 246 lb 1.957 oz BMI 34.3 BP 171/89 H Blood Pressure Location Lt brachial Position Sitting Pulse 51 Intake Visit Reasons: 3 month follow up UC Intake Note: Gilmer presents as a follow up 3 month follow up for UC. CC: States that he takes mesalamine 3 times a day - states he has questions but he is stable. 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 Allergies No Known Allergies Allergy (Mild, Verified 10/06/25 09:13) NOT APPLICABLE Medication List - Last Reconciled 10/06/25 by Lang Duncan MD ascorbic acid (vitamin C) (Vitamin C) 100 mg PO DAILY azelastine-fluticasone 137-50 mcg/spray 1 spray intranasal BID calcium carbonate (Calcium 600) 600 mg PO DAILY cetirizine 10 mg PO DAILY fluticasone propionate 50 mcg/actuation 1 spray intranasal BID hydrocortisone 2.5% (Proctosol HC) 1 appl GA BEDTIME PRN mesalamine (Lialda) 3.6 grams PO DAILY multivitamin 1 tab PO DAILY psyllium husk (Daily Fiber) 0.52 grams PO DAILY HPI HPI 3 month follow up UC: Details: GI clinic visit for this 64 YM with hyperlipidemia and sleep apnea for FU of IBD. Patient was previously followed by SHANE Olivo TODAY'S VISIT: Pt reports he takes mesalamine 3 times a day - states he has questions but he is stable. Doing pretty good for the most part. Can have BMs with urgency Had 6 small BMs yesterday - 2-3 BMs on a good day and 5-6 on some days Stool are soft and mostly formed. Has not had a firm BM in a while. PAST VISITS: Just returned from a trip to [place] and did not have any problems Taking sulfasalazine and has 2 non-bloody BMs a day (usually in the morning) Minor bleeding while hiking and none since. Patient here for follow up of rectal bleeding and abdominal pain/Maggy former patient and brian was 03/23/2024. Colonoscopy and biopsy results were reviewed. Symptoms have partially improved since he started taking Prednisone and sulfasalazine Taking two tab of Prednisone daily and has 3-4 BMs a day (mostly in the am and occasionally at 3:30 am) Nocturnal BMs are more bloody. Notes decrease in the amount of blood. Still has urgency with bowel accidents. Denies side effects from sulfasalzine - rash. Noted mild HILL and an upset stomach. Patient cc: abdominal cramp with pain and bloating, daily rectal bleeding/bright red with soft stool with urgency to use bathroom and some GERD 12/2023 Pt had hemorrhoidectomy performed by Dr. Claros: He had a a large hemorrhoid column, on the left and another on the right which were both excised. Postop pt had a persistent wound on the left perianal area after hemorrhoidectomy with significant hypergranulation tissue which was cauterized with silver nitrate sticks. Pt reports having recurrent rectal bleeding since February and has noted several episodes during the day. Blood is bright red - mixed and separate from the stools. Blood on the TP and spolitches of blood in the toilet bowl Can have BMs without any blood and BMs containing mostly blood - upto 10 times a day More blood in the morning and settles down later in the afternoon. Sees more blood if he is more active and less if he is sitting around Had a huge accident this morning. Denies rectal or anal pain. Notes mild heartburn and indigestion the last few days - takes an antacids. Patient denies symptoms of dysphagia, nausea, vomiting, change in appetitewei. Admits to getting heavier due to no execise Has noted a change in BMs with diarrhea with soft stools - stopped using the stool softeners Patient denies major cardiac or pulmonary problems, Pt has loud snoring and suspected sleep apnea and does not use a CPAP machine. Denies problems with anesthesia in the past. Denies being on chronic anticoagulation. Patient denies known family history of colon polyps, colon cancer or other GI malignancies. LABS IN [employer] : Reviewed IMAGING STUDIES: 11/[address] SCAN SHOWED: * Scattered diverticulosis but no evidence for diverticulitis. Colon isdecompressed but I do not appreciate any obvious focal colonic wallthickening or pericolonic inflammatory change. No obstructive changesto the bowel. No acute intra-abdominal process seen otherwise. ENDOSCOPIC STUDIES: 09/2022 [address] STEVENSON: Impression: 1. Normal colon mucosa 2. Diverticulosis 3. External and internal hemorrhoids Recommendations: - Repeat colonoscopy in 10 years for CRC screening. PAST GI HISTORY BY REVIEW OF MEDICAL RECORDS: 03/2024 LAST SEEN BY SHANE OLIVO: A 63 y/o male hx hemorrhoidectomy- was seen for irregular bowel pattern- he admits to stress- sent back to surgeon- needed reassurrance he was healed- which he was We reviewed colonoscopy from 09/2022- Dr. Rachel STEVENSON-repeat 10 years. He says he feels hes making progress- some days after BM he feels like he has to go again He has started to decrease the metamucil- thinking that may be associated He says he ws obsessed with what hewas eating- how often he had to go etc- Patient Instructions: He will try citrucel and hold back metamucil Avoid straining Follow-up with Dr. Claros as need for any further hemorrhoidal issues [facility] Medical History (Updated 10/06/25 @ 09:28 by Lang Duncan MD) Diarrhea Hypergranulation Elevated cholesterol Sleep apnea Hemorrhoids that prolapse with straining and require manual replacement back inside anal canal Hemorrhoids with complication Surgical History History of hemorrhoidectomy (~01/09/24) Hx of umbilical hernia repair Hx of wisdom tooth extraction Hx of knee surgery Hx of colonoscopy Family History Father Substance use disorder Mother CAD (coronary artery disease), Onset Age: 60 Brother Hodgkin disease Social History Household Members: Spouse 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:: , 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: House Do you presently have visiting nurse or other home services: No Alcohol intake: current Alcohol intake frequency: holidays/special occasions only Comment: counts correct Patient Tobacco Use Status: Former Tobacco user Tobacco use type: Cigarette e-Cigarette/Vaping Use: Never Used Second Hand Smoke Exposure: No service: Yes Current occupational status: employed Current occupation: [employer] Current occupational exposures/hazards: Yes Cognitive needs: No Hearing needs: No Vision needs: Yes Review of Systems Const All systems reviewed & are unremarkable except as noted in HPI and below Physical Exam Vital Signs: Last Vital Signs Pulse 51 10/06/25 09:10 BP 171/89 H 10/06/25 09:10 BMI result Body Mass Index 34.3 Const General: healthy appearing and no acute distress Nutritional Appearance: obese Orientation/consciousness: patient oriented x3 Limitations: no limitations HEENT Head: Yes normal to inspection Ears: hearing grossly normal bilaterally Eyes Sclerae: sclerae normal Pupils: Equal, round and reactive pupils present Neck Neck: Yes normal visual inspection Chest Chest palpation & inspection: normal inspection of the chest Resp Effort & Inspection: normal respiratory effort Auscultation: clear to auscultation bilaterally Cardio Palpation: normal PMI Rate: regular rate Rhythm: regular rhythm Heart sounds: S1 normal heart sound present, S2 normal heart sound present and no murmurs GI Palpation (GI): Soft to palpation, nontender and No hepatosplenomegaly present Auscultation: normal bowel sounds Rectal Exam - Male: Yes deferred Skin General skin exam: no rashes or lesions noted Neuro General: patient oriented x3, gait normal and moves all extremities Cranial nerves: Yes Equal, round and reactive pupils present Psych Appearance: grossly normal Mental Status: mental status grossly normal Assessment & Plan Assessment & Plan (1) Hemorrhoids that prolapse with straining and require manual replacement back inside anal canal: Code(s): K64.2 - Third degree hemorrhoids Category: Medical (2) Ulcerative colitis: Code(s): K51.90 - Ulcerative colitis, unspecified, without complications Category: Medical (3) Hemorrhoids: Comment: -s/p hemorrhoidectomy 01/09/24-followed up with Dr. Claros Code(s): K64.9 - Unspecified hemorrhoids Category: Medical Plan 64 YM with hyperlipidemia and sleep apnea seen for evaluation of diarrhea ass ociated with recurrent episodes of rectal bleeding for the past month. Pattern of bleeding is different from hemorrhoidal bleeding in the past. 09/2022 colonoscopy showed diverticulosis and hemorrhoids and no polyps were detected. 12/2023 Pt had hemorrhoidectomy performed by Dr. Claros. Patient denies major cardiac or pulmonary problems, Pt has loud snoring and suspected sleep apnea and does not use a CPAP machine. Denies problems with anesthesia in the past. Denies being on chronic anticoagulation. 04/08/25 COLONOSCOPY SHOWED: Edema, erythema, edematous and friable mucosa with ulcerations and exudate throughout the colon. Inflammation was worse in the left colon with relatively normal-appearing mucosa in the distal transverse and descending colon from 55 to 80 cms - multiple biopsies were obtained and stool was sent for C diff toxin. No polyps were detected Moderate diverticulosis seen in the sigmoid colon Moderate hemorrhoids on antegrade exam. Plan: If C Diff toxin is negative, I will check CRP and IBD serologies and prescribe Prednisone taper followed by mesalamine. Repeat Colonoscopy in 7 - 8 years if biopsies confirm presence of IBD. ADDENDUM: Stool test was negative for C Diff toxin. Patient informed of results and advised to start prednisone taper for IBD. BIOPSIES SHOWED: A. Colon, right, biopsy: Mildly active colitis. B. Colon, transverse, biopsy: Moderately active colitis. C. Colon, descending, biopsy: Colonic mucosa within normal limits. D. Colon, sigmoid, biopsy: Chronic, mildly active, colitis. E. Rectum, biopsy: Chronic, moderately active, proctitis. Comment: No dysplasia or granulomata are identified 04/15/25 Pt informed of results and advised to start sulfasalazine 1 g p.o. twice daily (Mesalamine was not covered by his insurance) 04/28/25 Symptoms have partially improved since he started taking Prednisone and sulfasalazine Course and prognosis of UC was reviewed with the pt and his and a handout on UC was provided to the patient. Pt was advised to continue Sulfasalazine 1 gram twice a day and add Mesalamine enema at bedtime x 30 days. He was advised to call/message if symptoms do not improve by end of April. Dose of sulfasalazine can be increased to 3 tab twice a day (Of note pt will be changing his insurance to Medicare next month and may be able to switch to mesalamine) 10/06/25 Can have BMs with urgency Had 6 small BMs yesterday - 2-3 BMs on a good day and 5-6 on some days Pt advised to continue mesalamine 2.6 g daily - okay to use Imodium p.r.n. for urgency FU labs in 3 months FU clinic visit in 4 months. Orders: Orders Complete Blood Count no Diff 12/18/25 K51.90 - Ulcerative colitis, unspecified, without complications Creatinine 12/18/25 K51.90 - Ulcerative colitis, unspecified, without complications Liver Panel 12/18/25 K51.90 - Ulcerative colitis, unspecified, without complications C Reactive Protein 12/18/25 K51.90 - Ulcerative colitis, unspecified, without complications Medications: Changed From mesalamine (Lialda) 3.6 grams PO DAILY K51.90 - Ulcerative colitis, unspecified, without complications To mesalamine (Lialda) 3.6 grams (3 x 1.2 gram) PO DAILY 270 tabs 1RF 90 days K51.90 - Ulcerative colitis, unspecified, without complications Coding Level of Care Code Est Pt Level 3 (10492) Diagnoses Hemorrhoids that prolapse with straining and require manual replacement back inside anal canal K64.2 Ulcerative colitis K51.90 Hemorrhoids K64.9 Time Spent (min) 18
[2025-10-06 09:10] VITALS: BP 171/89; PULSE 51; BMI 34.3
--- OUTSIDE RECORDS SUMMARY | 2025-10-06 10:12 | XMS_ITS | Patient Health Record ---
Author Organization [facility] Address [address] [place] [id number] Care Team Providers Care Slide Developer Name Role Phone Arthur Edwards Unavailable [phone] Reason For Referral No Information Plan Of Treatment No Information
== END 2025-10-06 09:45 | disposition home or self-care (01) ==
LOC: HO.HGI 09:05
PROVIDERS: PCP Internal Medicine; Visit Provider Internal Medicine Gastroenterology
DX: K64.2 Third degree hemorrhoids (principal); K51.90 Ulcerative colitis, unspecified, without complications; K64.9 Unspecified hemorrhoids
CPT/HCPCS: 99213

== ENCOUNTER → 2025-10-06 09:04 | Outpatient (BNVA) | payer MEDICARE, SELFPAY | PROVIDERS: PCP Internal Medicine; Visit Provider Internal Medicine Gastroenterology | DX: K64.2 Third degree hemorrhoids (principal); K51.90 Ulcerative colitis, unspecified, without complications | CPT/HCPCS: 99212 ==